=== PATIENT | female | born 1990 | race Caucasian/White ===

== ENCOUNTER 2020-02-06 14:33 | Emergency (ER) | payer MEDICARE, MEDICAID, SELFPAY ==
--- NOTE | 2020-02-06 | ECG_ITS ---
Test Reason : MEDICAL CLEARNACE Blood Pressure : / mmHG Vent. Rate : 046 BPM Atrial Rate : 046 BPM P-R Int : 132 ms QRS Dur : 086 ms QT Int : 478 ms P-R-T Axes : 034 086 049 degrees QTc Int : 418 ms Sinus bradycardia Otherwise normal ECG When compared with ECG of 06-NOV-2019 13:45, No significant change was found Referred By: Aixa Goodwin Electronically Signed By:ROSALIA GAONA
[2020-02-06 14:55] VITALS: BP 131/74; PULSE 59; RESP 17; TEMP 36.1; O2SAT 99; BMI 21.2
--- NOTE | 2020-02-06 15:14 | PC.NURSE ---
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 pt reports that she is on methadone, clinic is [facility] - methadone to be verified.
--- NOTE | 2020-02-06 15:35 | ED.PSYCH ---
HPI - Psych General Chief Complaint: Psychiatric Symptoms <CARLOS MANUEL Childs - Last Filed: 02/06/20 20:53> Stated Complaint: CRISIS <CARLOS MANUEL Childs - Last Filed: 02/06/20 20:53> Time Seen by Provider: 02/06/20 15:34 <CARLOS MANUEL Childs Last Filed: 02/06/20 20:53> Source: patient <CARLOS MANUEL Childs Last Filed: 02/06/20 20:53> Mode of arrival: ambulatory <CARLOS MANUEL Childs Last Filed: 02/06/20 20:53> Limitations: no limitations <CARLOS MANUEL Childs Last Filed: 02/06/20 20:53> History of Present Illness HPI Narrative: 29 y/o female presenting with opiate abuse, alcohol abuse, depression and feeling hopeless. Wants to get inpatient help per her report. She denies SI/HI/AH. She admits to using more heroin because her methadone dosing has been decreased significantly. She is depressed and anxious. She feels manic and reports racing thoughts. <CARLOS MANUEL Childs - Last Filed: 02/06/20 20:53> MD complaint: anxiety, substance abuse, alcohol abuse and other (earle) <CARLOS MANUEL Childs - Last Filed: 02/06/20 20:53> Onset (ago): day(s) <CARLOS MANUEL Childs - Last Filed: 02/06/20 20:53> Duration: constant <CARLOS MANUEL Childs Last Filed: 02/06/20 20:53> History of same: Yes <CARLOS MANUEL Childs - Last Filed: 02/06/20 20:53> Relieving factors: none <CARLOS MANUEL Childs Last Filed: 02/06/20 20:53> Exacerbating factors: alcohol and drug use <CARLOS MANUEL Childs Last Filed: 02/06/20 20:53> Context: recent alcohol abuse, recent drug abuse, not taking psychiatric medications and significant life stressor <CARLOS MANUEL Childs Last Filed: 02/06/20 20:53> Associated psychiatric symptoms: depression and racing thoughts <CARLOS MANUEL Childs Last Filed: 02/06/20 20:53> Associated symptoms: nausea and insomnia <CARLOS MANUEL Childs - Last Filed: 02/06/20 20:53> Treatments prior to arrival: none <CARLOS MANUEL Childs Last Filed: 02/06/20 20:53> Related Data Home Medications: Home Medications Medication Instructions Recorded Confirmed clonidine HCl 1 tab PO BID 02/06/20 02/06/20 fluoxetine 1 cap PO DAILY 02/06/20 02/06/20 gabapentin 1 cap PO TID 02/06/20 02/06/20 methadone 117 mg PO DAILY 02/06/20 02/06/20 <CARLOS MANUEL Childs - Last Filed: 02/06/20 20:53> Allergies/Adverse Reactions: Allergies Allergy/AdvReac Type Severity Reaction Status Date / Time buprenorphine [From SUBOXONE] Allergy Severe ANAPHAYLAXI Verified 02/06/20 19:45 S naloxone [From SUBOXONE] Allergy Severe ANAPHAYLAXI Verified 02/06/20 19:46 S sulfamethoxazole Allergy Intermediate RASH Verified 02/06/20 19:46 [From BACTRIM] trimethoprim [From BACTRIM] Allergy Intermediate RASH Verified 02/06/20 19:46 ibuprofen [From MOTRIN] Allergy Unknown ITCHINESS Verified 02/06/20 19:46 lamotrigine [From LAMICTAL] Allergy Unknown RASH Verified 02/06/20 19:46 prednisone [PREDNISONE] Allergy Unknown UNKNOWN Verified 02/06/20 19:46 quetiapine [From SEROQUEL] Allergy Unknown UNKNOWN Verified 02/06/20 19:46 trazodone [TRAZODONE] Allergy Unknown UNKNOWN Verified 02/06/20 19:46 <CARLOS MANUEL Childs - Last Filed: 02/06/20 20:53> Review of Systems Review of Systems: Constitutional: No Fever, No Chills ENT/Mouth: No sore throat, No Rhinorrhea, No Swallowing Difficulty Eyes: No Eye Pain, No Swelling, No Redness Cardiovascular: No Chest Pain, positive SOB, No Orthopnea, positive Edema Respiratory: No Cough, No Sputum, No Wheezing, positive dyspnea Gastrointestinal: No Nausea, No Vomiting, No Diarrhea, No abdominal Pain, No Hematochezia, No Melena Genitourinary: No Dysuria, No Urinary Frequency, No Hematuria Musculoskeletal: No joint pain, No Myalgias Skin: No Skin Lesions, No rash Neuro: No Weakness, No Numbness, No Dizziness, No Headache Psych: positive manic thoughts, positive depression, No SI/HI/AH, positive drug and alcohol use Heme/Lymph: No Bruising, No Lymphadenopathy Endocrine: No Polyuria, No Polydipsia All other 10 point ROS are negative. <CARLOS MANUEL Childs - Last Filed: 02/06/20 20:53> [facility] Past Medical History Medical History: Medical History (Updated 02/06/20 @ 20:33 by CARLOS MANUEL Childs) Alcohol abuse Cellulitis Heroin abuse No known health problems <CARLOS MANUEL Childs - Last Filed: 02/06/20 20:53> Social History Social History: Social History Alcohol intake: current Alcohol intake frequency: 3 or more drinks per day Alcohol type: other Smoking Status: Current every day smoker Smoked in Last 30 Days: Yes Use of substances other than those prescribed or required for medical reasons: Yes Substance Use Type: Crack/Cocaine and Opiates Substance Use Frequency: Daily Last Used Substance: Hours (ago) Any prior treatment program specific to substance use: Yes Advance Directives: No Advance Directives Information Provided: Yes <CARLOS MANUEL Childs - Last Filed: 02/06/20 20:53> Physical Exam Vital Signs and I&O and Narrative: Vital Signs and I&O: Vital Signs Temp 98.6 F 02/06/20 21:17 Pulse 60 02/06/20 21:25 Resp 20 02/06/20 21:17 BP 125/78 02/06/20 21:25 Pulse Ox 100 02/06/20 21:17 Intake & Output 02/06/20 02/06/20 02/07/20 06:59 18:59 06:59 Weight 54.431 kg Body Mass Index 21.2 Appearance: Alert. Oriented X3. No acute distress. Eyes: Pupils equal, round and reactive to light. ENT: Pharynx normal. Neck: Normal inspection. Neck supple. CVS: Normal heart rate and rhythm. Pulses normal. Respiratory: No respiratory distress. Breath sounds normal. Abdomen: Soft and nontender. +BS x4 Skin: Track ureña noted on bilateral upper extremities . Normal skin color. Normal skin turgor. Extremities: No lower extremity edema. Neuro: Oriented X 3. No motor deficit. No sensory deficit. <CARLOS MANUEL Childs - Last Filed: 02/06/20 20:53> Vital Signs and I&O: Vital Signs Temp 98.6 F 02/06/20 21:17 Pulse 60 02/06/20 21:25 Resp 20 02/06/20 21:17 BP 125/78 02/06/20 21:25 Pulse Ox 100 02/06/20 21:17 Intake & Output 02/06/20 02/06/20 02/07/20 06:59 18:59 06:59 Weight 54.431 kg Body Mass Index 21.2 <Jaleel May DO - Last Filed: 02/06/20 22:44> Course Course Hospital Course: excessive drug and alcohol use with manic thoughts, racing thoughts, wants to get help. admits to using more heroin after missing her methadone dosing and her clinic significantly decreased her dosing. she is homeless. she feels anxious and she may be starting to withdraw from ETOH. she was drinking a 5th a day. <CARLOS MANUEL Childs - Last Filed: 02/06/20 20:53> Reevaluation(s) Reevaluation #1: Pending [facility] evaluation. Labs show mild elevation in transaminases, likely due to ETOH abuse. <CARLOS MANUEL Childs - Last Filed: 02/06/20 20:53> Consultations Consultation #1: N <CARLOS MANUEL Childs - Last Filed: 02/06/20 20:53> MDM - Psych Differential Diagnosis Differential diagnosis: Likely acute psychosis, homicidal ideation, suicidal ideation, bipolar disorder, depression, drug-induced psychotic disorder, acute anxiety, post-traumatic stress disorder, attention deficit hyperactivity disorder, substance abuse, alcohol intoxication, mood disorder and schizoaffective disorder <CARLOS MANUEL Childs Last Filed: 02/06/20 20:53> Restraints Face to Face Assessment: Face to Face Assessment: Current Situation: After assessment of the patient, a review of the pertinent medical record and a discussion with nursing staff, I feel the patient requires a restrain intervention. Reaction To: [] Medical Condition: [] Behavioral State: [] Continued Need: [] <CARLOS MANUEL Childs - Last Filed: 02/06/20 20:53> Medical Records Attestation: I reviewed the patient's medical records. <CARLOS MANUEL Chilsd - Last Filed: 02/06/20 20:53> Lab Data Attestation: I reviewed the patient's lab results. <CARLOS MANUEL Childs - Last Filed: 02/06/20 20:53> Result diagrams: : 02/06/20 15:56 02/06/20 15:56 <CARLOS MANUEL Childs - Last Filed: 02/06/20 20:53> Labs: Lab Results 02/06/20 02/06/20 02/06/20 Range/Units 15:55 15:56 15:56 WBC 6.9 (4.8-10.8) X10*3/uL RBC 4.46 (4.20-5.50) X10*6/uL Hgb 11.4 L (12.0-16.0) g/dl Hct 37.2 (37-47) % MCV 83.4 (80-98) fL MCH 25.6 L (27.0-33.0) pg MCHC 30.6 L (31.0-35.0) g/dl RDW 16.0 (11.0-16.0) % Plt Count 201 (160-400) X10*3/uL MPV 11.6 (9.4-12.3) fL Immature Gran % (Auto) 0.3 (0.0-0.4) % Neut % (Auto) 63.4 (45-73) % Lymph % (Auto) 26.4 (20-40) % [place] % (Auto) 7.7 (2-11) % Eos % (Auto) 1.6 (0-4) % Baso % (Auto) 0.6 (0-2) % Neut # (Auto) 4.4 (2.0-8.3) X10*3/uL Lymph # (Auto) 1.8 (1.2-4.9) X10*3/uL [place] # (Auto) 0.5 (0.1-1.2) X10*3/uL Eos # (Auto) 0.1 (0.0-0.4) X10*3/uL Baso # (Auto) 0.0 (0.0-0.2) X10*3/uL Abs Immat Gran (auto) 0.02 (0.00-0.03) X10*3/uL Absolute Nucleated RBC 0.000 (0.0-0.012) X10*3/uL Nucleated RBC % (auto) 0.0 (0.0-0.2) /100WBC Sodium (135-145) mmol/L Potassium (3.3-5.1) mmol/l Chloride (96-108) mmol/L Carbon Dioxide (22-29) mmol/L Anion Gap (12-20) BUN (9-16) mg/dL Creatinine (0.5-1.4) mg/dL Estim Creat Clear Calc Estimated GFR Random Glucose (60-115) mg/dL Calcium (8.4-10.2) mg/dL Total Bilirubin (0.0-1.0) mg/dL AST (5-31) U/L ALT (0-31) U/L Alkaline Phosphatase (39-117) U/L Total Protein (6.5-8.0) g/dL Albumin (3.5-5.0) g/dL Urine Test NEGATIVE (NEGATIVE) Urine Opiates Screen (Not Detect) Ur Barbiturates Screen (Not Detect) Ur Phencyclidine Scrn (Not Detect) Ur Amphetamines Screen (Not Detect) U Benzodiazepines Scrn (Not Detect) Urine Cocaine Screen (Not Detect) U Marijuana (THC) Screen (Not Detect) Ethyl Alcohol < 10 mg/dL 02/06/20 02/06/20 Range/Units 15:56 15:56 WBC (4.8-10.8) X10*3/uL RBC (4.20-5.50) X10*6/uL Hgb (12.0-16.0) g/dl Hct (37-47) % MCV (80-98) fL MCH (27.0-33.0) pg MCHC (31.0-35.0) g/dl RDW (11.0-16.0) % Plt Count (160-400) X10*3/uL MPV (9.4-12.3) fL Immature Gran % (Auto) (0.0-0.4) % Neut % (Auto) (45-73) % Lymph % (Auto) (20-40) % [place] % (Auto) (2-11) % Eos % (Auto) (0-4) % Baso % (Auto) (0-2) % Neut # (Auto) (2.0-8.3) X10*3/uL Lymph # (Auto) (1.2-4.9) X10*3/uL [place] # (Auto) (0.1-1.2) X10*3/uL Eos # (Auto) (0.0-0.4) X10*3/uL Baso # (Auto) (0.0-0.2) X10*3/uL Abs Immat Gran (auto) (0.00-0.03) X10*3/uL Absolute Nucleated RBC (0.0-0.012) X10*3/uL Nucleated RBC % (auto) (0.0-0.2) /100WBC Sodium 141 (135-145) mmol/L Potassium 4.4 (3.3-5.1) mmol/l Chloride 104 (96-108) mmol/L Carbon Dioxide 28 (22-29) mmol/L Anion Gap 13 (12-20) BUN 8 L (9-16) mg/dL Creatinine 0.74 (0.5-1.4) mg/dL Estim Creat Clear Calc 93.6 Estimated GFR > 60 Random Glucose 89 (60-115) mg/dL Calcium 9.5 (8.4-10.2) mg/dL Total Bilirubin 0.4 (0.0-1.0) mg/dL AST 38 H (5-31) U/L ALT 44 H (0-31) U/L Alkaline Phosphatase 79 (39-117) U/L Total Protein 8.1 H (6.5-8.0) g/dL Albumin 4.6 (3.5-5.0) g/dL Urine Test (NEGATIVE) Urine Opiates Screen POSITIVE H (Not Detect) Ur Barbiturates Screen Not Detected (Not Detect) Ur Phencyclidine Scrn Not Detected (Not Detect) Ur Amphetamines Screen Not Detected (Not Detect) U Benzodiazepines Scrn Not Detected (Not Detect) Urine Cocaine Screen POSITIVE H (Not Detect) U Marijuana (THC) Screen POSITIVE H (Not Detect) Ethyl Alcohol mg/dL <CARLOS MANUEL Childs - Last Filed: 02/06/20 20:53> Lab Results 02/06/20 02/06/20 02/06/20 Range/Units 15:55 15:56 15:56 WBC 6.9 (4.8-10.8) X10*3/uL RBC 4.46 (4.20-5.50) X10*6/uL Hgb 11.4 L (12.0-16.0) g/dl Hct 37.2 (37-47) % MCV 83.4 (80-98) fL MCH 25.6 L (27.0-33.0) pg MCHC 30.6 L (31.0-35.0) g/dl RDW 16.0 (11.0-16.0) % Plt Count 201 (160-400) X10*3/uL MPV 11.6 (9.4-12.3) fL Immature Gran % (Auto) 0.3 (0.0-0.4) % Neut % (Auto) 63.4 (45-73) % Lymph % (Auto) 26.4 (20-40) % [place] % (Auto) 7.7 (2-11) % Eos % (Auto) 1.6 (0-4) % Baso % (Auto) 0.6 (0-2) % Neut # (Auto) 4.4 (2.0-8.3) X10*3/uL Lymph # (Auto) 1.8 (1.2-4.9) X10*3/uL [place] # (Auto) 0.5 (0.1-1.2) X10*3/uL Eos # (Auto) 0.1 (0.0-0.4) X10*3/uL Baso # (Auto) 0.0 (0.0-0.2) X10*3/uL Abs Immat Gran (auto) 0.02 (0.00-0.03) X10*3/uL Absolute Nucleated RBC 0.000 (0.0-0.012) X10*3/uL Nucleated RBC % (auto) 0.0 (0.0-0.2) /100WBC Sodium (135-145) mmol/L Potassium (3.3-5.1) mmol/l Chloride (96-108) mmol/L Carbon Dioxide (22-29) mmol/L Anion Gap (12-20) BUN (9-16) mg/dL Creatinine (0.5-1.4) mg/dL Estim Creat Clear Calc Estimated GFR Random Glucose (60-115) mg/dL Calcium (8.4-10.2) mg/dL Total Bilirubin (0.0-1.0) mg/dL AST (5-31) U/L ALT (0-31) U/L Alkaline Phosphatase (39-117) U/L Total Protein (6.5-8.0) g/dL Albumin (3.5-5.0) g/dL Urine Test NEGATIVE (NEGATIVE) Urine Opiates Screen (Not Detect) Ur Barbiturates Screen (Not Detect) Ur Phencyclidine Scrn (Not Detect) Ur Amphetamines Screen (Not Detect) U Benzodiazepines Scrn (Not Detect) Urine Cocaine Screen (Not Detect) U Marijuana (THC) Screen (Not Detect) Ethyl Alcohol < 10 mg/dL 02/06/20 02/06/20 Range/Units 15:56 15:56 WBC (4.8-10.8) X10*3/uL RBC (4.20-5.50) X10*6/uL Hgb (12.0-16.0) g/dl Hct (37-47) % MCV (80-98) fL MCH (27.0-33.0) pg MCHC (31.0-35.0) g/dl RDW (11.0-16.0) % Plt Count (160-400) X10*3/uL MPV (9.4-12.3) fL Immature Gran % (Auto) (0.0-0.4) % Neut % (Auto) (45-73) % Lymph % (Auto) (20-40) % [place] % (Auto) (2-11) % Eos % (Auto) (0-4) % Baso % (Auto) (0-2) % Neut # (Auto) (2.0-8.3) X10*3/uL Lymph # (Auto) (1.2-4.9) X10*3/uL [place] # (Auto) (0.1-1.2) X10*3/uL Eos # (Auto) (0.0-0.4) X10*3/uL Baso # (Auto) (0.0-0.2) X10*3/uL Abs Immat Gran (auto) (0.00-0.03) X10*3/uL Absolute Nucleated RBC (0.0-0.012) X10*3/uL Nucleated RBC % (auto) (0.0-0.2) /100WBC Sodium 141 (135-145) mmol/L Potassium 4.4 (3.3-5.1) mmol/l Chloride 104 (96-108) mmol/L Carbon Dioxide 28 (22-29) mmol/L Anion Gap 13 (12-20) BUN 8 L (9-16) mg/dL Creatinine 0.74 (0.5-1.4) mg/dL Estim Creat Clear Calc 93.6 Estimated GFR > 60 Random Glucose 89 (60-115) mg/dL Calcium 9.5 (8.4-10.2) mg/dL Total Bilirubin 0.4 (0.0-1.0) mg/dL AST 38 H (5-31) U/L ALT 44 H (0-31) U/L Alkaline Phosphatase 79 (39-117) U/L Total Protein 8.1 H (6.5-8.0) g/dL Albumin 4.6 (3.5-5.0) g/dL Urine Test (NEGATIVE) Urine Opiates Screen POSITIVE H (Not Detect) Ur Barbiturates Screen Not Detected (Not Detect) Ur Phencyclidine Scrn Not Detected (Not Detect) Ur Amphetamines Screen Not Detected (Not Detect) U Benzodiazepines Scrn Not Detected (Not Detect) Urine Cocaine Screen POSITIVE H (Not Detect) U Marijuana (THC) Screen POSITIVE H (Not Detect) Ethyl Alcohol mg/dL <Jaleel May DO - Last Filed: 02/06/20 22:44> ECG Data Attestation: I personally reviewed and interpreted this ECG as follows: <CARLOS MANUEL Childs - Last Filed: 02/06/20 20:53> Interpretation: normal sinus rhythm, HR 46, normal QTc <CARLOS MANUEL Childs - Last Filed: 02/06/20 20:53> Discharge Plan Discharge Clinical Impression: Heroin abuse, Alcohol abuse, Acute anxiety <CARLOS MANUEL Childs - Last Filed: 02/06/20 20:53> Prescriptions: No Action clonidine HCl 0.1 mg tablet 1 tab PO BID RF: 0 fluoxetine 10 mg capsule 1 cap PO DAILY RF: 0 gabapentin 300 mg capsule 1 cap PO TID RF: 0 methadone 117 mg PO DAILY RF: 0 <CARLOS MANUEL Childs - Last Filed: 02/06/20 20:53>
[2020-02-06] MEDS: Gabapentin 600 MG TABLET PO ×2 (16:03→21:25)
[2020-02-06] MEDS: LORazepam 1 MG TABLET PO ×2 (16:03→19:12)
[2020-02-06 16:06] LABS: MANUAL DIFF FLAG NO
[2020-02-06 16:07] LABS: Basophils Percent Auto 0.6 % (0-2); Eosinophils Absolute Auto 0.1 X10*3/uL (0.0-0.4); Eosinophils Percent Auto 1.6 % (0-4); Hematocrit 37.2 % (37-47); Hemoglobin 11.4 g/dl (12.0-16.0); Imm Gran Abs Auto 0.02 X10*3/uL (0.00-0.03); Imm Gran Pct Auto 0.3 % (0.0-0.4); Lymphocytes Absolute Auto 1.8 X10*3/uL (1.2-4.9); Lymphocytes Percent Auto 26.4 % (20-40); Mean Corpuscular HGB Conc 30.6 g/dl (31.0-35.0); Mean Corpuscular Hemoglobin 25.6 pg (27.0-33.0); Mean Corpuscular Volume 83.4 fL (80-98); Mean Platelet Volume 11.6 fL (9.4-12.3); Monocytes Absolute Auto 0.5 X10*3/uL (0.1-1.2); Monocytes Percent Auto 7.7 % (2-11); Neutrophils Absolute Auto 4.4 X10*3/uL (2.0-8.3); Neutrophils Percent Auto 63.4 % (45-73); Platelet Count 201 X10*3/uL (160-400); Red Blood Count 4.46 X10*6/uL (4.20-5.50); White Blood Count 6.9 X10*3/uL (4.8-10.8)
[2020-02-06 16:31] LABS: Ethanol < 10 mg/dL
[2020-02-06 16:34] LABS: UPreg QC Valid YES; Urine Pregnancy NEGATIVE (NEGATIVE)
[2020-02-06 16:35] LABS: Alanine Aminotransferase 44 U/L (0-31); Albumin Level 4.6 g/dL (3.5-5.0); Alkaline Phosphatase 79 U/L (39-117); Anion Gap 13 (12-20); Aspartate Amino Transferase 38 U/L (5-31); Bilirubin Total 0.4 mg/dL (0.0-1.0); Blood Urea Nitrogen 8 mg/dL (9-16); Calcium 9.5 mg/dL (8.4-10.2); Carbon Dioxide 28 mmol/L (22-29); Chloride 104 mmol/L (96-108); Creatinine Clr Calc Pharmacy 93.6; Estimated Glomerular Filt Rate > 60; Glucose Random 89 mg/dL (60-115); Potassium 4.4 mmol/l (3.3-5.1); Sodium 141 mmol/L (135-145); Total Protein 8.1 g/dL (6.5-8.0)
[2020-02-06 16:55] VITALS: BP 123/64; PULSE 54; RESP 20; TEMP 37; O2SAT 99
--- NOTE | 2020-02-06 17:31 | PC.NURSE ---
PT laying in bed watching TV. Calm and cooperative. Complaining of anxiety, provider made aware.
[2020-02-06 17:43] LABS: Amphetamine Screen Urine Not Detected (Not Detect); Barbiturates, Urine Not Detected (Not Detect); Benzodiazepines Screen Urine Not Detected (Not Detect); Cannabinoid Screen Urine POSITIVE (Not Detect); Cocaine Screen Urine POSITIVE (Not Detect); Opiate Screen Urine POSITIVE (Not Detect); Phencyclidine Screen Urine Not Detected (Not Detect)
[2020-02-06 19:30] VITALS: BP 116/59; PULSE 66; RESP 20; TEMP 37.2; O2SAT 99
--- NOTE | 2020-02-06 20:10 | ED.PSYCH ---
HPI - Psych General Chief Complaint: Psychiatric Symptoms <CARLOS MANUEL Childs - Last Filed: 02/06/20 20:33> Stated Complaint: CRISIS <CARLOS MANUEL Childs Last Filed: 02/06/20 20:33> Time Seen by Provider: 02/06/20 15:34 <CARLOS MANUEL Childs Last Filed: 02/06/20 20:33> Source: patient <CARLOS MANUEL Childs Last Filed: 02/06/20 20:33> Mode of arrival: ambulatory <CARLOS MANUEL Childs Last Filed: 02/06/20 20:33> Limitations: no limitations <CARLOS MANUEL Childs Last Filed: 02/06/20 20:33> History of Present Illness HPI Narrative: 29 y/o female with history of substance abuse and alcohol abuse presenting with hopes of detox and manic, disorganized thoughts. She has not been compliant with her psych meds or methadone. Her clinic has significantly decreased her dose due to missed appointment and she has been using more heroin. She also has been drinking a 5th of liquor daily for the last few months. She feels like she might be withdrawing. <CARLOS MANUEL Childs - Last Filed: 02/06/20 20:33> MD complaint: feels depressed, anxiety, substance abuse and alcohol abuse <CARLOS MANUEL Childs - Last Filed: 02/06/20 20:33> Onset (ago): week(s) (2) <CARLOS MANUEL Childs - Last Filed: 02/06/20 20:33> Duration: constant <CARLOS MANUEL Childs Last Filed: 02/06/20 20:33> History of same: Yes <CARLOS MANUEL Childs Last Filed: 02/06/20 20:33> Relieving factors: none <CARLOS MANUEL Childs Last Filed: 02/06/20 20:33> Exacerbating factors: alcohol and drug use <CARLOS MANUEL Childs Last Filed: 02/06/20 20:33> Context: recent alcohol abuse, recent drug abuse, not taking psychiatric medications and significant life stressor <CARLOS MANUEL Childs Last Filed: 02/06/20 20:33> Associated psychiatric symptoms: depression and racing thoughts <CARLOS MANUEL Childs Last Filed: 02/06/20 20:33> Associated symptoms: nausea and insomnia <CARLOS MANUEL Childs Last Filed: 02/06/20 20:33> Treatments prior to arrival: none <CARLOS MANUEL Childs Last Filed: 02/06/20 20:33> Related Data Home Medications: Home Medications Medication Instructions Recorded Confirmed clonidine HCl 1 tab PO BID 02/06/20 02/06/20 fluoxetine 1 cap PO DAILY 02/06/20 02/06/20 gabapentin 1 cap PO TID 02/06/20 02/06/20 <CARLOS MANUEL Childs Last Filed: 02/06/20 20:33> Allergies/Adverse Reactions: Allergies Allergy/AdvReac Type Severity Reaction Status Date / Time buprenorphine [From SUBOXONE] Allergy Severe ANAPHAYLAXI Verified 02/06/20 19:45 S naloxone [From SUBOXONE] Allergy Severe ANAPHAYLAXI Verified 02/06/20 19:46 S sulfamethoxazole Allergy Intermediate RASH Verified 02/06/20 19:46 [From BACTRIM] trimethoprim [From BACTRIM] Allergy Intermediate RASH Verified 02/06/20 19:46 ibuprofen [From MOTRIN] Allergy Unknown ITCHINESS Verified 02/06/20 19:46 lamotrigine [From LAMICTAL] Allergy Unknown RASH Verified 02/06/20 19:46 prednisone [PREDNISONE] Allergy Unknown UNKNOWN Verified 02/06/20 19:46 quetiapine [From SEROQUEL] Allergy Unknown UNKNOWN Verified 02/06/20 19:46 trazodone [TRAZODONE] Allergy Unknown UNKNOWN Verified 02/06/20 19:46 <CARLOS MANUEL Childs Last Filed: 02/06/20 20:33> Review of Systems Review of Systems: Constitutional: No Fever, No Chills ENT/Mouth: No sore throat, No Rhinorrhea, No Swallowing Difficulty Eyes: No Eye Pain, No Swelling, No Redness Cardiovascular: No Chest Pain, No SOB, No Orthopnea, No Edema Respiratory: No Cough, No Sputum, No Wheezing, No dyspnea Gastrointestinal: + Nausea, No Vomiting, No Diarrhea, No abdominal Pain, No Hematochezia, No Melena Genitourinary: No Dysuria, No Urinary Frequency, No Hematuria Musculoskeletal: No joint pain, No Myalgias Skin: + skin Lesions where she injects on UE, No rash Neuro: No Weakness, No Numbness, No Dizziness, No Headache Psych: + Anxiety/Panic, + Depression Heme/Lymph: No Bruising, No Lymphadenopathy Endocrine: No Polyuria, No Polydipsia <CARLOS MANUEL Childs - Last Filed: 02/06/20 20:33> [facility] Past Medical History Attestation statement: The following information was validated with the patient. <CARLOS MANUEL Childs - Last Filed: 02/06/20 20:33> Medical History: Medical History (Updated 02/06/20 @ 20:33 by CARLOS MANUEL Childs) Alcohol abuse Cellulitis Heroin abuse No known health problems <CARLOS MANUEL Childs - Last Filed: 02/06/20 20:33> Social History Social History: Social History Alcohol intake: current Alcohol intake frequency: 3 or more drinks per day Alcohol type: other Smoking Status: Current every day smoker Smoked in Last 30 Days: Yes Use of substances other than those prescribed or required for medical reasons: Yes Substance Use Type: Crack/Cocaine and Opiates Substance Use Frequency: Daily Last Used Substance: Hours (ago) Any prior treatment program specific to substance use: Yes Advance Directives: No Advance Directives Information Provided: Yes <CARLOS MANUEL Childs - Last Filed: 02/06/20 20:33> Physical Exam Vital Signs and I&O and Narrative: Vital Signs and I&O: Vital Signs Temp 98.9 F 02/06/20 19:30 Pulse 66 02/06/20 19:30 Resp 20 02/06/20 19:30 BP 116/59 L 02/06/20 19:30 Pulse Ox 99 02/06/20 19:30 Intake & Output 02/06/20 02/06/20 02/07/20 06:59 18:59 06:59 Weight 54.431 kg Body Mass Index 21.2 Appearance: Alert. Oriented X3. No acute distress. Eyes: Pupils equal, round and reactive to light. ENT: Pharynx normal. Neck: Normal inspection. Neck supple. CVS: bradycardia, Pulses normal. Respiratory: No respiratory distress. Breath sounds normal. Abdomen: Soft and nontender. +BS x4 Skin: Skin warm and dry. Normal skin color. Normal skin turgor. No rashes. Extremities: No lower extremity edema. upper extrmity track ureña in bilateral forearms, no cellulitis or abscess Neuro: Oriented X 3. No motor deficit. No sensory deficit. <CARLOS MANUEL Childs Last Filed: 02/06/20 20:33> Vital Signs and I&O: Vital Signs Temp 98.9 F 02/06/20 19:30 Pulse 66 02/06/20 19:30 Resp 20 02/06/20 19:30 BP 116/59 L 02/06/20 19:30 Pulse Ox 99 02/06/20 19:30 Intake & Output 02/06/20 02/06/20 02/07/20 06:59 18:59 06:59 Weight 54.431 kg Body Mass Index 21.2 <Jaleel May DO - Last Filed: 02/06/20 20:50> Course Course Hospital Course: excessive drug and alcohol use with manic thoughts, racing thoughts, wants to get help. admits to using more heroin after missing her methadone dosing and her clinic significantly decreased her dosing. she is homeless. she feels anxious and she may be starting to withdraw from ETOH. she was drinking a 5th a day. <CARLOS MANUEL Childs - Last Filed: 02/06/20 20:33> Reevaluation(s) Reevaluation #1: reports increased anxiety and ?of alcohol withdrawl with positive tremor but no other objective signs of withdrawal. pending [facility] evaluation. <CARLOS MANUEL Childs Last Filed: 02/06/20 20:33> Time: 20:16 <CARLOS MANUEL Childs Last Filed: 02/06/20 20:33> MDM - Psych Restraints Face to Face Assessment: Face to Face Assessment: Current Situation: After assessment of the patient, a review of the pertinent medical record and a discussion with nursing staff, I feel the patient requires a restrain intervention. Reaction To: [] Medical Condition: [] Behavioral State: [] Continued Need: [] <CARLOS MANUEL Childs Last Filed: 02/06/20 20:33> Lab Data Result diagrams: : 02/06/20 15:56 02/06/20 15:56 <CARLOS MANUEL Childs - Last Filed: 02/06/20 20:33> Labs: Lab Results 02/06/20 02/06/20 02/06/20 Range/Units 15:55 15:56 15:56 WBC 6.9 (4.8-10.8) X10*3/uL RBC 4.46 (4.20-5.50) X10*6/uL Hgb 11.4 L (12.0-16.0) g/dl Hct 37.2 (37-47) % MCV 83.4 (80-98) fL MCH 25.6 L (27.0-33.0) pg MCHC 30.6 L (31.0-35.0) g/dl RDW 16.0 (11.0-16.0) % Plt Count 201 (160-400) X10*3/uL MPV 11.6 (9.4-12.3) fL Immature Gran % (Auto) 0.3 (0.0-0.4) % Neut % (Auto) 63.4 (45-73) % Lymph % (Auto) 26.4 (20-40) % Callaway % (Auto) 7.7 (2-11) % Eos % (Auto) 1.6 (0-4) % Baso % (Auto) 0.6 (0-2) % Neut # (Auto) 4.4 (2.0-8.3) X10*3/uL Lymph # (Auto) 1.8 (1.2-4.9) X10*3/uL Callaway # (Auto) 0.5 (0.1-1.2) X10*3/uL Eos # (Auto) 0.1 (0.0-0.4) X10*3/uL Baso # (Auto) 0.0 (0.0-0.2) X10*3/uL Abs Immat Gran (auto) 0.02 (0.00-0.03) X10*3/uL Absolute Nucleated RBC 0.000 (0.0-0.012) X10*3/uL Nucleated RBC % (auto) 0.0 (0.0-0.2) /100WBC Sodium (135-145) mmol/L Potassium (3.3-5.1) mmol/l Chloride (96-108) mmol/L Carbon Dioxide (22-29) mmol/L Anion Gap (12-20) BUN (9-16) mg/dL Creatinine (0.5-1.4) mg/dL Estim Creat Clear Calc Estimated GFR Random Glucose (60-115) mg/dL Calcium (8.4-10.2) mg/dL Total Bilirubin (0.0-1.0) mg/dL AST (5-31) U/L ALT (0-31) U/L Alkaline Phosphatase (39-117) U/L Total Protein (6.5-8.0) g/dL Albumin (3.5-5.0) g/dL Urine Test NEGATIVE (NEGATIVE) Urine Opiates Screen (Not Detect) Ur Barbiturates Screen (Not Detect) Ur Phencyclidine Scrn (Not Detect) Ur Amphetamines Screen (Not Detect) U Benzodiazepines Scrn (Not Detect) Urine Cocaine Screen (Not Detect) U Marijuana (THC) Screen (Not Detect) Ethyl Alcohol < 10 mg/dL 02/06/20 02/06/20 Range/Units 15:56 15:56 WBC (4.8-10.8) X10*3/uL RBC (4.20-5.50) X10*6/uL Hgb (12.0-16.0) g/dl Hct (37-47) % MCV (80-98) fL MCH (27.0-33.0) pg MCHC (31.0-35.0) g/dl RDW (11.0-16.0) % Plt Count (160-400) X10*3/uL MPV (9.4-12.3) fL Immature Gran % (Auto) (0.0-0.4) % Neut % (Auto) (45-73) % Lymph % (Auto) (20-40) % Callaway % (Auto) (2-11) % Eos % (Auto) (0-4) % Baso % (Auto) (0-2) % Neut # (Auto) (2.0-8.3) X10*3/uL Lymph # (Auto) (1.2-4.9) X10*3/uL Callaway # (Auto) (0.1-1.2) X10*3/uL Eos # (Auto) (0.0-0.4) X10*3/uL Baso # (Auto) (0.0-0.2) X10*3/uL Abs Immat Gran (auto) (0.00-0.03) X10*3/uL Absolute Nucleated RBC (0.0-0.012) X10*3/uL Nucleated RBC % (auto) (0.0-0.2) /100WBC Sodium 141 (135-145) mmol/L Potassium 4.4 (3.3-5.1) mmol/l Chloride 104 (96-108) mmol/L Carbon Dioxide 28 (22-29) mmol/L Anion Gap 13 (12-20) BUN 8 L (9-16) mg/dL Creatinine 0.74 (0.5-1.4) mg/dL Estim Creat Clear Calc 93.6 Estimated GFR > 60 Random Glucose 89 (60-115) mg/dL Calcium 9.5 (8.4-10.2) mg/dL Total Bilirubin 0.4 (0.0-1.0) mg/dL AST 38 H (5-31) U/L ALT 44 H (0-31) U/L Alkaline Phosphatase 79 (39-117) U/L Total Protein 8.1 H (6.5-8.0) g/dL Albumin 4.6 (3.5-5.0) g/dL Urine Test (NEGATIVE) Urine Opiates Screen POSITIVE H (Not Detect) Ur Barbiturates Screen Not Detected (Not Detect) Ur Phencyclidine Scrn Not Detected (Not Detect) Ur Amphetamines Screen Not Detected (Not Detect) U Benzodiazepines Scrn Not Detected (Not Detect) Urine Cocaine Screen POSITIVE H (Not Detect) U Marijuana (THC) Screen POSITIVE H (Not Detect) Ethyl Alcohol mg/dL <CARLOS MANUEL Childs - Last Filed: 02/06/20 20:33> Lab Results 02/06/20 02/06/20 02/06/20 Range/Units 15:55 15:56 15:56 WBC 6.9 (4.8-10.8) X10*3/uL RBC 4.46 (4.20-5.50) X10*6/uL Hgb 11.4 L (12.0-16.0) g/dl Hct 37.2 (37-47) % MCV 83.4 (80-98) fL MCH 25.6 L (27.0-33.0) pg MCHC 30.6 L (31.0-35.0) g/dl RDW 16.0 (11.0-16.0) % Plt Count 201 (160-400) X10*3/uL MPV 11.6 (9.4-12.3) fL Immature Gran % (Auto) 0.3 (0.0-0.4) % Neut % (Auto) 63.4 (45-73) % Lymph % (Auto) 26.4 (20-40) % Callaway % (Auto) 7.7 (2-11) % Eos % (Auto) 1.6 (0-4) % Baso % (Auto) 0.6 (0-2) % Neut # (Auto) 4.4 (2.0-8.3) X10*3/uL Lymph # (Auto) 1.8 (1.2-4.9) X10*3/uL Callaway # (Auto) 0.5 (0.1-1.2) X10*3/uL Eos # (Auto) 0.1 (0.0-0.4) X10*3/uL Baso # (Auto) 0.0 (0.0-0.2) X10*3/uL Abs Immat Gran (auto) 0.02 (0.00-0.03) X10*3/uL Absolute Nucleated RBC 0.000 (0.0-0.012) X10*3/uL Nucleated RBC % (auto) 0.0 (0.0-0.2) /100WBC Sodium (135-145) mmol/L Potassium (3.3-5.1) mmol/l Chloride (96-108) mmol/L Carbon Dioxide (22-29) mmol/L Anion Gap (12-20) BUN (9-16) mg/dL Creatinine (0.5-1.4) mg/dL Estim Creat Clear Calc Estimated GFR Random Glucose (60-115) mg/dL Calcium (8.4-10.2) mg/dL Total Bilirubin (0.0-1.0) mg/dL AST (5-31) U/L ALT (0-31) U/L Alkaline Phosphatase (39-117) U/L Total Protein (6.5-8.0) g/dL Albumin (3.5-5.0) g/dL Urine Test NEGATIVE (NEGATIVE) Urine Opiates Screen (Not Detect) Ur Barbiturates Screen (Not Detect) Ur Phencyclidine Scrn (Not Detect) Ur Amphetamines Screen (Not Detect) U Benzodiazepines Scrn (Not Detect) Urine Cocaine Screen (Not Detect) U Marijuana (THC) Screen (Not Detect) Ethyl Alcohol < 10 mg/dL 02/06/20 02/06/20 Range/Units 15:56 15:56 WBC (4.8-10.8) X10*3/uL RBC (4.20-5.50) X10*6/uL Hgb (12.0-16.0) g/dl Hct (37-47) % MCV (80-98) fL MCH (27.0-33.0) pg MCHC (31.0-35.0) g/dl RDW (11.0-16.0) % Plt Count (160-400) X10*3/uL MPV (9.4-12.3) fL Immature Gran % (Auto) (0.0-0.4) % Neut % (Auto) (45-73) % Lymph % (Auto) (20-40) % Callaway % (Auto) (2-11) % Eos % (Auto) (0-4) % Baso % (Auto) (0-2) % Neut # (Auto) (2.0-8.3) X10*3/uL Lymph # (Auto) (1.2-4.9) X10*3/uL [place]away # (Auto) (0.1-1.2) X10*3/uL Eos # (Auto) (0.0-0.4) X10*3/uL Baso # (Auto) (0.0-0.2) X10*3/uL Abs Immat Gran (auto) (0.00-0.03) X10*3/uL Absolute Nucleated RBC (0.0-0.012) X10*3/uL Nucleated RBC % (auto) (0.0-0.2) /100WBC Sodium 141 (135-145) mmol/L Potassium 4.4 (3.3-5.1) mmol/l Chloride 104 (96-108) mmol/L Carbon Dioxide 28 (22-29) mmol/L Anion Gap 13 (12-20) BUN 8 L (9-16) mg/dL Creatinine 0.74 (0.5-1.4) mg/dL Estim Creat Clear Calc 93.6 Estimated GFR > 60 Random Glucose 89 (60-115) mg/dL Calcium 9.5 (8.4-10.2) mg/dL Total Bilirubin 0.4 (0.0-1.0) mg/dL AST 38 H (5-31) U/L ALT 44 H (0-31) U/L Alkaline Phosphatase 79 (39-117) U/L Total Protein 8.1 H (6.5-8.0) g/dL Albumin 4.6 (3.5-5.0) g/dL Urine Test (NEGATIVE) Urine Opiates Screen POSITIVE H (Not Detect) Ur Barbiturates Screen Not Detected (Not Detect) Ur Phencyclidine Scrn Not Detected (Not Detect) Ur Amphetamines Screen Not Detected (Not Detect) U Benzodiazepines Scrn Not Detected (Not Detect) Urine Cocaine Screen POSITIVE H (Not Detect) U Marijuana (THC) Screen POSITIVE H (Not Detect) Ethyl Alcohol mg/dL <Jaleel May DO - Last Filed: 02/06/20 20:50> Discharge Plan Discharge Clinical Impression: Heroin abuse, Alcohol abuse, Acute anxiety <CARLOS MANUEL Childs - Last Filed: 02/06/20 20:33> Prescriptions: No Action clonidine HCl 0.1 mg tablet 1 tab PO BID RF: 0 fluoxetine 10 mg capsule 1 cap PO DAILY RF: 0 gabapentin 300 mg capsule 1 cap PO TID RF: 0 <CARLOS MANUEL Childs - Last Filed: 02/06/20 20:33>
--- NOTE | 2020-02-06 20:44 | PC.NURSE ---
PATIENT KEEPS COMING TO DESK ASKING FOR MEDICATION BECAUSE SHE STATES SHE IS WITHDRAWING FROM ALCOHOL. PA AWARE AND PRESCRIBED ATARAX WELL CLONIDINE. PATIENT CONTINUED TO ARGUE WITH THIS STAFF. CARLOS MANUEL DELANEY IS CURRENTLY DISCUSSING MEDICATION OPTION WITH PATIENT.
[2020-02-06 21:17] VITALS: BP 125/78; PULSE 58; RESP 20; TEMP 37; O2SAT 100
[2020-02-06 21:25] VITALS: BP 125/78; PULSE 60
[2020-02-06] MEDS: cloNIDine HCL 0.1 MG TABLET PO (21:25)
[2020-02-06] MEDS: chlordiazePOXIDE HCl 25 MG CAPSULE PO (21:25)
--- NOTE | 2020-02-06 22:58 | PC.NURSE ---
PATIENT WAS SCHEDULED FOR ATARAX AND CARLOS MANUEL DELANEY SPOKE WITH PATIENT AND DISCONTINUED THE ATARAX AND PRESCRIBED DIFFERENT MEDICATIONS WHICH WERE GIVEN. PATIENT HAS BEEN FIXATED ON MEDICATIONS ALL EVENING AND HAS APPROACHED THIS STAFF MEMBER ABOUT GETTING MEDICATIONS AND WHICH MEDICATIONS SHE NEEDS. MD DUGAN
[2020-02-07] VITALS (9 sets, daily range): BP systolic 111–135; BP diastolic 40–83; PULSE 51–88; RESP 14–20; TEMP 36.1–36.8; O2SAT 97–100
--- NOTE | 2020-02-07 00:24 | PC.NURSE ---
PATIENT CAME TO DESK AND STATED THAT SHE WAS DETOXING AND NEEDED MORE MEDICATION. PATIENT NOT DIAPHORETIC. VITAL SIGNS WERE TEMP 97.4, PULSE 77, BP 133/69, AND 100 PERCENT ON ROOM AIR. MD AWARE AND PATIENT CONTINUES TO PERSEVERATE ON MEDICATIONS.
[2020-02-07] MEDS: chlordiazePOXIDE HCl 25 MG CAPSULE PO ×2 (00:34→10:50)
--- NOTE | 2020-02-07 00:34 | PC.NURSE ---
PATIENT MEDICATED PER EMAR NOTED.
--- NOTE | 2020-02-07 00:40 | PC.NURSE ---
HEIDIN EVALUATED THE PATIENT AND THE CURRENT PLAN IS TO HAVE THE PATIENT GO INPATIENT TO [facility]. PER [facility] PATIENT STATES THAT IF SHE DOESN'T GO IN PATIENT SOMETHING BAD WILL HAPPEN. PATIENT HISTORICALLY DOES NOT DO WELL AT DETOX.
--- NOTE | 2020-02-07 05:13 | PC.NURSE ---
PATIENT CAME OUT OF HER ROOM AND IS COMPLAINING OF WITHDRAWEL SYMPTOMS. PATIENT ASKING FOR LIBRIUM, TYLENOL AND ZOFRAN. PATIENT STATES SHE DOES NOT FEEL WELL. MD NOTIFIED. PATIENT VSS TAKEN
--- NOTE | 2020-02-07 05:58 | PC.NURSE ---
O[place] SCORE COMPLETED AND MD NOTIFIED OF RESULTS.
--- NOTE | 2020-02-07 06:04 | PC.NURSE ---
PATIENT HOLDING HER HANDS AGAINST HER CHEST AND HAND NOT TREMORING. NO DIAPHORESIS. PATIENT UPSET AND TELLING THIS POLICE LIEUTENANT PRECINCT THAT SHE IS A HIGHER CIWA SCORE THAN WHERE I PUT HERE.
[2020-02-07] MEDS: LORazepam 0.5 MG TABLET PO (06:32)
--- NOTE | 2020-02-07 06:33 | PC.NURSE ---
PATIENT MEDICATED PER EMAR NOTED.
--- NOTE | 2020-02-07 07:18 | PC.NURSE ---
REPORT RECIEVED. PT COMPLAINING OF A HEADACHE AND STATES THAT SHE IS DETOXING, PT LISTING CIWA SYMTPOMS. SUPPORT GIVEN. PT IRRITABLE, AND DEMANDING.
--- NOTE | 2020-02-07 09:31 | PC.NURSE ---
Pt watching tv, calm and cooperative, pt pleasant in conversation, less irritable at this time.
[2020-02-07] MEDS: cloNIDine HCL 0.1 MG TABLET PO (10:50)
[2020-02-07] MEDS: Gabapentin 300 MG CAPSULE PO ×2 (10:50→15:03)
--- NOTE | 2020-02-07 13:24 | PC.NURSE ---
pt has spoken with megha again. now stating that she shouldn't have come. her friend is also present in the pod. Pt denies SI.
== END 2020-02-07 16:06 | disposition home or self-care (01) ==
PROVIDERS: Physician Assistant; Emergency Provider Emergency Medicine; PCP Internal Medicine
DX: F11.10 Opioid abuse, uncomplicated (principal); F10.10 Alcohol abuse, uncomplicated; Y90.9 Presence of alcohol in blood, level not specified; F41.9 Anxiety disorder, unspecified; F17.200 Nicotine dependence, unspecified, uncomplicated
CPT/HCPCS: 36415; 80053; 80307; 80320; 81025; 85025; 93005; 93010; 99285

== ENCOUNTER 2020-02-12 22:16 | Emergency (ER) | payer MEDICARE, MEDICAID, SELFPAY ==
[2020-02-12 22:21] VITALS: BP 117/65; PULSE 91; RESP 20; TEMP 36.4; O2SAT 99; BMI 20.1
--- NOTE | 2020-02-12 22:51 | ED.PSYCH ---
HPI - Psych General Chief Complaint: Psychiatric Symptoms Stated Complaint: Crisis Time Seen by Provider: 02/12/20 22:47 Source: patient Mode of arrival: ambulatory History of Present Illness HPI Narrative: patient states has not been taking her medications as well as has been thinking about caught herself and came in for evaluation for crisis. Patient denies recent illness or fevers or chills. Denies chest pain or shortness of MD complaint: suicidal ideation Onset (ago): day(s) (3) History of same: Yes Relieving factors: none Treatments prior to arrival: none If self harm: admits thoughts of self harm Related Data Home Medications Medication Instructions Recorded Confirmed clonidine HCl 0.1 mg PO BID 02/06/20 02/07/20 fluoxetine 10 mg PO DAILY 02/06/20 02/07/20 gabapentin 300 mg PO TID 02/06/20 02/07/20 methadone 117 mg PO DAILY 02/06/20 02/06/20 pregabalin 1 cap PO BID 02/07/20 02/07/20 Allergies Allergy/AdvReac Type Severity Reaction Status Date / Time buprenorphine [From SUBOXONE] Allergy Severe ANAPHAYLAXI Verified 02/06/20 19:45 S naloxone [From SUBOXONE] Allergy Severe ANAPHAYLAXI Verified 02/06/20 19:46 S sulfamethoxazole Allergy Intermediate RASH Verified 02/06/20 19:46 [From BACTRIM] trimethoprim [From BACTRIM] Allergy Intermediate RASH Verified 02/06/20 19:46 ibuprofen [From MOTRIN] Allergy Unknown ITCHINESS Verified 02/06/20 19:46 lamotrigine [From LAMICTAL] Allergy Unknown RASH Verified 02/06/20 19:46 prednisone [PREDNISONE] Allergy Unknown UNKNOWN Verified 02/06/20 19:46 quetiapine [From SEROQUEL] Allergy Unknown UNKNOWN Verified 02/06/20 19:46 trazodone [TRAZODONE] Allergy Unknown UNKNOWN Verified 02/06/20 19:46 Review of Systems Review of Systems: Constitutional : No Weight loss, No Fever, No Chills, No Night Sweats, No Fatigue, No Malaise ENT/Mouth : No Hearing loss, No Ear Pain, No Nasal Congestion, No Sinus Pain, No Hoarseness, No sore throat, No Rhinorrhea, No Swallowing Difficulty Eyes: No Eye Pain, No Swelling, No Redness, No Foreign Body, No Discharge, No Vision Changes Cardiovascular : No Chest Pain, No SOB, No Dyspnea on Exertion, No Orthopnea, No Edema, No Palpitations Respiratory : No Cough, No Sputum, No Wheezing, No Smoke Exposure, No Dyspnea Gastrointestinal : No Nausea, No Vomiting, No Diarrhea, No Constipation, No abdominal Pain, No Hematochezia, No Melena Genitourinary : no irregular bleeding, No Dysuria, No Urinary Frequency, No Hematuria, No Urinary Incontinence, No Urgency, No Flank Pain, No Urinary Flow Changes, No Hesitancy Musculoskeletal : No joint pain, No Myalgias, No Joint Swelling Skin : No Skin Lesions, No rash Neuro : No Weakness, No Numbness, No Paresthesias, No Loss of Consciousness, No Dizziness, No Headache Psych : No Anxiety/Panic, positiveDepression, positive SI, No Social Issues, Heme/Lymph: No Bruising, No Bleeding,No Lymphadenopathy Endocrine : No Polyuria, No Polydipsia, No Temperature Intolerance PMFSH Past Medical History Attestation statement: The following information was validated with the patient. Medical History Alcohol abuse Cellulitis Heroin abuse No known health problems Family History Family History (Updated 02/12/20 @ 22:52 by Jaleel May DO) Other Family history non-contributory Social History Social History Alcohol intake: current Alcohol intake frequency: 3 or more drinks per day Alcohol type: other Smoking Status: Current every day smoker Substance Use Type: Crack/Cocaine and Opiates Advance Directives: No Advance Directives Information Provided: Yes Physical Exam Vital Signs: Vital Signs: Vital Signs Temp Pulse Resp BP Pulse Ox 02/12/20 22:21 97.6 F 91 20 117/65 99 Body Mass Index 20.1 vital signs reviewed Appearance: Alert. Oriented X3. No acute distress. Eyes: Pupils equal, round and reactive to light. ENT: Pharynx normal. Neck: Normal inspection. Neck supple. No lymph nodes noted. No crepitus CVS: Normal heart rate and rhythm. Pulses normal. Normal S1 and S2 Respiratory: No respiratory distress. Breath sounds normal. No Wheezing. No rales Abdomen: Soft and nontender. No rigidity. No distention. good BS x4 Skin: Skin warm and dry. Normal skin color. Normal skin turgor. Extremities: No lower extremity edema. Neurovascular intact to all extremities. No Lacerations. No Rash Neuro: Oriented X 3. No motor deficit. No sensory deficit. Moving all extermities. No slurred speech. MDM - Psych Restraints Face to Face Assessment: Face to Face Assessment: Current Situation: After assessment of the patient, a review of the pertinent medical record and a discussion with nursing staff, I feel the patient requires a restrain intervention. Reaction To: [] Medical Condition: [] Behavioral State: [] Continued Need: [] Discharge Plan Discharge Prescriptions: No Action clonidine HCl 0.1 mg tablet 0.1 mg PO BID RF: 0 fluoxetine 10 mg capsule 10 mg PO DAILY RF: 0 gabapentin 300 mg capsule 300 mg PO TID RF: 0 methadone 117 mg PO DAILY RF: 0 pregabalin 50 mg capsule 1 cap PO BID RF: 0
[2020-02-12] MEDS: Gabapentin 300 MG CAPSULE PO (23:21)
--- NOTE | 2020-02-12 23:24 | PC.NURSE ---
Pt medicated per EMAR. Provided with urine cup to obtain UA.
[2020-02-12 23:47] VITALS: BP 110/64; PULSE 64; RESP 16; TEMP 36.4; O2SAT 97
[2020-02-13] VITALS: BP 104/62; PULSE 64; RESP 16; TEMP 36.9; O2SAT 99
[2020-02-13 00:24] LABS: UPreg QC Valid YES; Urine Pregnancy NEGATIVE (NEGATIVE)
[2020-02-13 00:50] LABS: Amphetamine Screen Urine Not Detected (Not Detect); Barbiturates, Urine Not Detected (Not Detect); Benzodiazepines Screen Urine POSITIVE (Not Detect); Cannabinoid Screen Urine POSITIVE (Not Detect); Cocaine Screen Urine POSITIVE (Not Detect); Opiate Screen Urine POSITIVE (Not Detect); Phencyclidine Screen Urine Not Detected (Not Detect)
--- NOTE | 2020-02-13 01:32 | PC.NURSE ---
Pt sleeping in bed in NAD, visible chest rise noted, sitter at bedside. Continue to monitor.
[2020-02-13 02:00] VITALS: BP 109/56; PULSE 64; RESP 16; TEMP 36.6
--- NOTE | 2020-02-13 03:33 | PC.NURSE ---
Pt sleeping in bed at this time in NAD, visible chest rise noted. VSS. Continue to monitor.
[2020-02-13 04:00] VITALS: BP 106/54; PULSE 64; RESP 16; TEMP 36.4
--- NOTE | 2020-02-13 04:08 | PC.NURSE ---
Faxed to [facility].
--- NOTE | 2020-02-13 04:22 | PC.NURSE ---
Pt wakes suddenly, requesting to use the bathroom. Pt extremely angry to find a sitter at her bedside. Pt requesting to speak with a nurse, this RN at bedside discussing pts concerns. Pt states WHY THE FUCK AM I STILL IN THE HALLWAY? WHY HAVEN'T I SEEN CRISIS YET? I'M IN WITHDRAWALS, I'M SHAKING AND SWEATING, NOONE HAS CHECKED ON ME. Pt advised that multiple people have checked on her repeatedly, her vitals remain WNL and that she has a crisis eval pending for morning. Pt continued yelling at this RN. This RN explained to pt that when she was able to calm down, this RN would return.
--- NOTE | 2020-02-13 05:01 | PC.NURSE ---
Pt awake and alert, calm and cooperative at this time, requesting a nicotine patch, Colace, Zofran and gingerale. MD aware.
[2020-02-13] MEDS: Docusate Sodium 100 MG/10 ML LIQUID PO (05:08)
--- NOTE | 2020-02-13 05:25 | PC.NURSE ---
Pt medicated per EMAR, refusing nicotine patch, states it irriates my skin.
--- NOTE | 2020-02-13 05:37 | PC.NURSE ---
Med Rec completed with pt. Aleks RN calling [facility] in [place] to verify Methadone dose of 117 mg/daily once they open at 0600, .
--- NOTE | 2020-02-13 05:46 | PC.NURSE ---
Addendum entered by Sarah Coleman 02/13/20 06:20: Unable to locate fax number, unable to fax document. Clinic to open @ 0700. Original Note: Methadone verification form faxed to [facility].
[2020-02-13 06:00] VITALS: RESP 16
[2020-02-13] MEDS: LORazepam 1 MG TABLET PO (06:16)
--- NOTE | 2020-02-13 06:17 | PC.NURSE ---
PATIENT REFUSED VITALS ,NURSE AWARE
--- NOTE | 2020-02-13 06:21 | PC.NURSE ---
Pt medicated per request with Ativan and a Nicotine Lozenge. Awaiting crisis eval.
--- NOTE | 2020-02-13 07:12 | PC.NURSE ---
PT IS CURRENTLY AWAKE SITTING ON THE EDGE OF HER BED SITTER IN PLACE.
[2020-02-13 07:49] VITALS: BP 123/56; PULSE 79; RESP 20; O2SAT 100
--- NOTE | 2020-02-13 07:53 | PC.NURSE ---
PT RESTING IN THE STRETCHER, RESPIRATIONS EVEN AND UNLABORED. PT REPORTS HAVING WITHDRAWALS FROM ALCOHOL, VS STABLE, NO VISIBLE TREMORS AT THIS TIME. PT IS REQUESTING LIBRIUM. PT REPORTS SI, STATES SHE THINKS ABOUT DYING EVERY DAY, WOULD LIKE HELP WITH GETTING OFF THE DRUGS, LAST USED LAST NIGHT AT 1600. PT ALSO STATES THAT SHE IS ON METHADONE AT [facility] IN [place] AND HER DOSE IS 117. PT AWARE OF PLAN TO SPEAK TO N. SITTER IN PLACE
--- NOTE | 2020-02-13 08:01 | PC.NURSE ---
SPOKE TO ANGELA STEEL AT [facility], PT WAS DOSED 02/12/2020 AT 117MG
--- NOTE | 2020-02-13 08:08 | PC.NURSE ---
BHN EVALUATING THE PT AT THIS TIME
--- NOTE | 2020-02-13 08:54 | PC.NURSE ---
pt moved to the pod, report given to jeannie briceño
[2020-02-13] MEDS: chlordiazePOXIDE HCl 25 MG CAPSULE 50 MG PO (09:00)
--- NOTE | 2020-02-13 09:25 | PC.NURSE ---
Pt cooperative with transfer to pod. Seen by HEIDIN. Pt has a detox bed at [facility]. Pending d/c time at 1400.
[2020-02-13] MEDS: Pregabalin 50 MG CAPSULE PO (10:03)
[2020-02-13] MEDS: Gabapentin 300 MG CAPSULE PO (10:03)
--- NOTE | 2020-02-13 11:07 | PC.NURSE ---
Pt requesting d/c from ED prior to admission at [facility] today at 1500. Provider and BHN aware. Pt denying SI at this time.
--- NOTE | 2020-02-13 11:53 | MHC.CARE ---
Patient assessed by KIM in the ED and was awaiting detox, has an intake at [facility] at 2:00pm. She changed the intake time to 3:00pm she decided to discharge, take care of some things and then go to [facility]. Currently on Methadone, not connected with mental health providers, said she plans to reach out to previous therapist, Ramesh at [facility].
== END 2020-02-13 11:16 | disposition home or self-care (01) ==
PROVIDERS: Emergency Provider Emergency Medicine; PCP Internal Medicine
DX: F43.29 Adjustment disorder with other symptoms (principal); R45.851 Suicidal ideations; F11.10 Opioid abuse, uncomplicated; F14.10 Cocaine abuse, uncomplicated; F10.10 Alcohol abuse, uncomplicated; Z91.14 Patient's other noncompliance with medication regimen; Y90.9 Presence of alcohol in blood, level not specified
CPT/HCPCS: 80307; 81025; 99285

== ENCOUNTER 2020-02-13 17:59 | Emergency (ER) | payer MEDICARE, MEDICAID, SELFPAY ==
[2020-02-13 18:05] VITALS: BP 128/77; PULSE 84; RESP 20; TEMP 36.7; O2SAT 96
[2020-02-13 18:30] VITALS: BMI 45.6
--- NOTE | 2020-02-13 18:36 | PC.NURSE ---
Pt arriuved to unit via EMS. Per pt and EMS, pt was sent here from [place] after hearing that pt had endorsed SI in the past. Pt arrived on Section 12, denies SI at this time, pt states she needs help and will feel suicidal if she is unable to get oit. Pt admits to using etoh, heroin daily- used cocaine only before arriving.
--- NOTE | 2020-02-13 19:30 | ED.PSYCH ---
HPI - Psych General Chief Complaint: Psychiatric Symptoms Stated Complaint: Section 12 Time Seen by Provider: 02/13/20 19:29 History of Present Illness HPI Narrative: patient is a 29-year-old female presents today with having thoughts of suicidal ideation. Patient has a history of cocaine abuse. History of opiate abuse. Was just sent to rehab at [facility]. Patient came right back because she potentially has suicidal ideation. Patient unable to give the detail as to her plan. Patient denies any fever chills and cough and congestion upper respiratory symptoms. Denies any new drugs. Patient from home. patient denies any suicidal homicidal Ideation at this time. Related Data Home Medications Medication Instructions Recorded Confirmed gabapentin 300 mg PO TID 02/06/20 02/13/20 methadone 117 mg PO DAILY 02/06/20 02/13/20 pregabalin 50 mg PO BID 02/07/20 02/13/20 Allergies Allergy/AdvReac Type Severity Reaction Status Date / Time buprenorphine [From SUBOXONE] Allergy Severe ANAPHAYLAXI Verified 02/06/20 19:45 S naloxone [From SUBOXONE] Allergy Severe ANAPHAYLAXI Verified 02/06/20 19:46 S sulfamethoxazole Allergy Intermediate RASH Verified 02/06/20 19:46 [From BACTRIM] trimethoprim [From BACTRIM] Allergy Intermediate RASH Verified 02/06/20 19:46 ibuprofen [From MOTRIN] Allergy Unknown ITCHINESS Verified 02/06/20 19:46 lamotrigine [From LAMICTAL] Allergy Unknown RASH Verified 02/06/20 19:46 prednisone [PREDNISONE] Allergy Unknown UNKNOWN Verified 02/06/20 19:46 quetiapine [From SEROQUEL] Allergy Unknown UNKNOWN Verified 02/06/20 19:46 trazodone [TRAZODONE] Allergy Unknown UNKNOWN Verified 02/06/20 19:46 Review of Systems Review of Systems: Constitutional: No Weight loss, No Fever, No Chills, No Night Sweats, No Fatigue, No Malaise ENT/Mouth: No Hearing loss, No Ear Pain, No Nasal Congestion, No Sinus Pain, No Hoarseness, No sore throat, No Rhinorrhea, No Swallowing Difficulty Eyes: No Eye Pain, No Swelling, No Redness, No Foreign Body, No Discharge, No Vision Changes Cardiovascular: No Chest Pain, No SOB, No Dyspnea on Exertion, No Orthopnea, No Edema, No Palpitations Respiratory: No Cough, No Sputum, No Wheezing, No Smoke Exposure, No Dyspnea Gastrointestinal: No Nausea, No Vomiting, No Diarrhea, No Constipation, No abdominal Pain, No Hematochezia, No Melena Genitourinary: no irregular bleeding, No Dysuria, No Urinary Frequency, No Hematuria, No Urinary Incontinence, No Urgency, No Flank Pain, No Urinary Flow Changes, No Hesitancy Musculoskeletal: No joint pain, No Myalgias, No Joint Swelling Skin: No Skin Lesions, No rash Neuro: No Weakness, No Numbness, No Paresthesias, No Loss of Consciousness, No Dizziness, No Headache Psych: No Anxiety/Panic, No Depression, No SI/HI/AH/VH, No Social Issues, Heme/Lymph: No Bruising, No Bleeding,No Lymphadenopathy Endocrine: No Polyuria, No Polydipsia, No Temperature Intolerance [facility] Past Medical History Medical History Alcohol abuse Cellulitis Heroin abuse No known health problems Family History Family History Other Family history non-contributory Social History Social History Alcohol intake: current Alcohol intake frequency: 0-2 drinks per day Alcohol type: other Smoking Status: Current every day smoker Use of substances other than those prescribed or required for medical reasons: Yes Substance Use Type: Crack/Cocaine and Heroin Substance Use Frequency: Daily Last Used Substance: Just Prior to Admission Any prior treatment program specific to substance use: Yes Advance Directives: No Advance Directives Information Provided: No Physical Exam Vital Signs: Vital Signs: Vital Signs Temp Pulse Resp BP Pulse Ox 02/13/20 23:59 97.1 F 75 18 119/76 100 02/13/20 21:47 97.3 F 87 20 124/74 97 02/13/20 18:05 98.1 F 84 20 128/77 96 Body Mass Index 45.6 O2 sat 96% on room air normal Appearance: Alert. Oriented X3. No acute distress. Eyes: Pupils equal, round and reactive to light. ENT: Pharynx normal. Neck: Normal inspection. Neck supple. No lymph nodes noted. No crepitus CVS: Normal heart rate and rhythm. Pulses normal. Normal S1 and S2 Respiratory: No respiratory distress. Breath sounds normal. No Wheezing. No rales Abdomen: Soft and nontender. No rigidity. No distention. good BS x4 Skin: Skin warm and dry. Normal skin color. Normal skin turgor. Extremities: No lower extremity edema. Neurovascular intact to all extremities. No Lacerations. No Rash Neuro: Oriented X 3. No motor deficit. No sensory deficit. Moving all extermities. No slurred speech MDM - Psych MDM Narrative Medical decision making narrative: patient medically cleared awaiting crisis evaluation. Patient has positive suicidal ideation. Currently in stable condition no distress. Restraints Face to Face Assessment: Face to Face Assessment: Current Situation: After assessment of the patient, a review of the pertinent medical record and a discussion with nursing staff, I feel the patient requires a restrain intervention. Reaction To: [] Medical Condition: [] Behavioral State: [] Continued Need: [] Lab Data Labs: Lab Results 02/13/20 02/13/20 Range/Units 19:35 19:35 Urine Test NEGATIVE (NEGATIVE) Urine Opiates Screen POSITIVE H (Not Detect) Ur Barbiturates Screen Not Detected (Not Detect) Ur Phencyclidine Scrn Not Detected (Not Detect) Ur Amphetamines Screen Not Detected (Not Detect) U Benzodiazepines Scrn POSITIVE H (Not Detect) Urine Cocaine Screen POSITIVE H (Not Detect) U Marijuana (THC) Screen POSITIVE H (Not Detect) Discharge Plan Discharge Prescriptions: No Action gabapentin 300 mg capsule 300 mg PO TID RF: 0 methadone 117 mg PO DAILY RF: 0 pregabalin 50 mg capsule 50 mg PO BID RF: 0
[2020-02-13] MEDS: LORazepam 1 MG TABLET PO (19:45)
[2020-02-13 19:49] LABS: UPreg QC Valid YES; Urine Pregnancy NEGATIVE (NEGATIVE)
[2020-02-13 20:06] LABS: Amphetamine Screen Urine Not Detected (Not Detect); Barbiturates, Urine Not Detected (Not Detect); Benzodiazepines Screen Urine POSITIVE (Not Detect); Cannabinoid Screen Urine POSITIVE (Not Detect); Cocaine Screen Urine POSITIVE (Not Detect); Opiate Screen Urine POSITIVE (Not Detect); Phencyclidine Screen Urine Not Detected (Not Detect)
--- NOTE | 2020-02-13 21:35 | PC.NURSE ---
Patient hyper-verbal/argumentative/fixated on her section 12/demanding librium for her withdrawal. Patient currently in her room lying in her bed. Refused lab draw. Will continue to monitor
[2020-02-13 21:47] VITALS: BP 124/74; PULSE 87; RESP 20; TEMP 36.3; O2SAT 97
[2020-02-13] MEDS: Pregabalin 50 MG CAPSULE PO (21:52)
[2020-02-13] MEDS: Gabapentin 300 MG CAPSULE PO (21:53)
--- NOTE | 2020-02-13 22:32 | PC.NURSE ---
Patient reported she is withdrawing from ETOH, BP 124/74, HR 85, RR 18. Scored 7 on CIWA scale. Demanding for Librium one more time. Patient made aware of her CIWA score, provider made aware/no new order at this time. N faxed/called/spoke with Raghav/confirmed receipt of referral/ETA after 2300 tonight. Complain of Migraine/provider ordered firocet/administered as ordered. Patient appears presenting medication seeking beahvior. Will continue to monitor.
[2020-02-13 23:59] VITALS: BP 119/76; PULSE 75; RESP 18; TEMP 36.2; O2SAT 100
--- NOTE | 2020-02-14 | PC.NURSE ---
Patient just came out of room, demanding librium for withdrawal, vital signs assessed/documented/WNL. BP 119/76, HR 75. BHN called to check on clinician ETA/spoke with Pam notified that clinician will be there shortly. Patient verbally abusive to nurse. Will continue to monitor.
--- NOTE | 2020-02-14 00:57 | PC.NURSE ---
BHN with patient for evaluation.
--- NOTE | 2020-02-14 01:33 | PC.NURSE ---
Patient in bed appears sleeping, asymptomatic of withdrawal at this time, N update patient's disposition, patient is voluntary inpatient EATS bed search, if patient wants discharge can be discharged per disposition. Will continue to monitor ther patient.
[2020-02-14 03:42] VITALS: BP 132/92; PULSE 90; RESP 18; TEMP 36.9; O2SAT 100
[2020-02-14] MEDS: chlordiazePOXIDE HCl 25 MG CAPSULE PO (03:52)
--- NOTE | 2020-02-14 04:02 | PC.NURSE ---
Patient out of room, came to nurses' station, demanding for Librium, vital signs assessed, asymptomatic of withdrawal, patient very disruptive/non re-directable/loud/when asked to lower her voice, patient raised her voice even higher stating I don't care Patient very argumentative to staff making inappropriate racial comments at time. Patient behavior extremely medication seeking justifying her medication demand by saying that she was born when her mother is on high dose of Methadone. Provider notified/ordered Librium 25 mg tablet to calm the patient down. Administered as ordered. Patient after taking her librium didn't stop there continue being disruptive/security called for support/patient rude to security personal. Patients very grandiose, currently in her room. Will continue to monitor.
--- NOTE | 2020-02-14 05:40 | PC.NURSE ---
Patient came out of room asking for more medication, patient tearful, confusion over her disposition, pt now thinks she needs really more help, inpatient level, Fioricet and nicotine lozenge administered as requested/ordered. Will continue to monitor.
--- NOTE | 2020-02-14 06:36 | PC.NURSE ---
Patient came out of room yelling, screaming, demanding librium again, disrupted co-patients sleep few times, one of the patient next room came out very angry told the patient shut up. Staff has to intervene, co-patient was re-directable, avoid confrontation. Security called for support. Patient is manic/confrontational/argumentative/intrusive. Will continue to monitor.
--- NOTE | 2020-02-14 07:32 | PC.NURSE ---
Report received from MAK Lang. Pt awake on arrival, intrusive and difficult to redirect. Pt accusatory, stating that she had not been properly medicated while in the pod. Pt notified that this would be reviewed with her, pt redirected and reminded that staff will review situation with her.
[2020-02-14 08:00] VITALS: BP 125/71; PULSE 89; RESP 18; TEMP 37; O2SAT 99
[2020-02-14] MEDS: Pregabalin 50 MG CAPSULE PO (08:20)
[2020-02-14] MEDS: Gabapentin 300 MG CAPSULE PO (08:20)
--- NOTE | 2020-02-14 08:41 | PC.NURSE ---
Pharmacy called re: Methadone. Care team reviewing situation. Pt tearful, stating that she is 'not receiving treatment for detox,' states that she requires Librium and Fiorecet. Pt with multiple concerns. Offered pt the opportunity to sepak w/ supervisor dehydrogenation, pt declined. Explained to patient that Care team is reviewing and also assisting w/ placement.
--- NOTE | 2020-02-14 08:59 | MHC.CARE ---
CARE Team contacted [facility] Workroom and spoke with Liza - regarding Pt being sent back to [facility] yesterday after being accepted at [facility] for a detox bed. Liza reported she will look into what occurred and find out if they will be able to accommodate Pt. N aware CARE Team is assisting on the detox bed search referral.
--- NOTE | 2020-02-14 09:29 | PC.NURSE ---
Pt requesting to shower and leave. Pt aware that Care team and BHN are attempting to assist w/ placement. Pt denies SI, states that she is not willing to wait in the ED for treatment. Pt reports that she has an apartment she can return to, and that she will attempt to find placement for herself, possible w/ [facility]. Pt states she has been banned from several places, due to her relationship with, now, exboyfriend.
--- NOTE | 2020-02-14 10:14 | MHC.CARE ---
CARE Team faxed over copy of MSU to [facility] Work Room regarding referral to [facility]. Per nursing Pt is requesting to discharge. KIM mcghee indicates Pt is a voluntary EATS Bedsearch. Provider is aware.
--- NOTE | 2020-02-14 10:27 | PC.NURSE ---
Pt requesting discharge multiple times. Pt given discharge instructions as requested. Now requesting to see Pneudraulic Systems Mechanic. Pneudraulic Systems Mechanic in to see pt.
--- NOTE | 2020-02-14 10:45 | PC.NURSE ---
Pt seen by success coach, states that she will be working with him for a detox bed. Pt states she is happy with this plan. Plans to return to apartment and pay the rent.
== END 2020-02-14 10:00 | disposition home or self-care (01) ==
PROVIDERS: Emergency Medicine Emergency Medical Services; Emergency Provider Emergency Medicine
DX: R45.851 Suicidal ideations (principal); F31.9 Bipolar disorder, unspecified; F11.20 Opioid dependence, uncomplicated; F10.10 Alcohol abuse, uncomplicated; F14.10 Cocaine abuse, uncomplicated; F17.200 Nicotine dependence, unspecified, uncomplicated
CPT/HCPCS: 80307; 81025; 99284; 99285

== ENCOUNTER 2020-06-01 14:16 | Emergency (ER) | payer MEDICARE, MEDICAID, SELFPAY ==
[2020-06-01 14:20] VITALS: BP 104/56; PULSE 67; RESP 20; TEMP 36.8; O2SAT 98; BMI 21.4
--- NOTE | 2020-06-01 15:53 | ED.DENTAL ---
HPI - Dental/Oral General Chief complaint: Dental/Oral Stated complaint: dental infection Time Seen by Provider: 06/01/20 15:52 Source: patient Mode of arrival: ambulatory Limitations: no limitations History of Present Illness HPI Narrative: 29 y/o female with history of active IV drug use, on current high dose methadone, depression, poor dental hygiene who presents with acute on chronic left upper dental pain for the last week. She states the tooth pain has come and gone for the last few months and she has not seen a dentist in years. She also reports vaginal discharge and exposure to syphilis last week. She just found out yesterday that her partner who she had unprotected sex with is positive. MD Complaint: tooth pain Location: Tooth # (13-16 & 21) Onset (ago): week(s) Duration: constant Severity: severe Relieving factors: nothing Exacerbating factors: chewing, cold and heat Context: history of dental caries and poor dental care Associated symptoms: gum swelling Treatment prior to arrival: none Related Data Home Medications Medication Instructions Recorded Confirmed gabapentin 300 mg PO TID 02/06/20 02/13/20 methadone 117 mg PO DAILY 02/06/20 02/13/20 pregabalin 50 mg PO BID 02/07/20 02/13/20 Previous Rx's Medication Instructions Recorded doxycycline monohydrate 100 mg PO BID #14 cap 06/01/20 ibuprofen 600 mg PO Q8H PRN #30 tab 06/01/20 Allergies Allergy/AdvReac Type Severity Reaction Status Date / Time buprenorphine [From SUBOXONE] Allergy Severe ANAPHAYLAXI Verified 02/06/20 19:45 S naloxone [From SUBOXONE] Allergy Severe ANAPHAYLAXI Verified 02/06/20 19:46 S sulfamethoxazole Allergy Intermediate RASH Verified 02/06/20 19:46 [From BACTRIM] trimethoprim [From BACTRIM] Allergy Intermediate RASH Verified 02/06/20 19:46 ibuprofen [From MOTRIN] Allergy Unknown ITCHINESS Verified 02/06/20 19:46 lamotrigine [From LAMICTAL] Allergy Unknown RASH Verified 02/06/20 19:46 prednisone [PREDNISONE] Allergy Unknown UNKNOWN Verified 02/06/20 19:46 quetiapine [From SEROQUEL] Allergy Unknown UNKNOWN Verified 02/06/20 19:46 trazodone [TRAZODONE] Allergy Unknown UNKNOWN Verified 02/06/20 19:46 Review of Systems Review of Systems: Constitutional: No Fever, No Chills ENT/Mouth: No sore throat, No Rhinorrhea, No Swallowing Difficulty, +dental pain, +facial pain Eyes: No Eye Pain, No Swelling, No Redness Cardiovascular: No Chest Pain, No SOB Respiratory: No Cough, No Sputum Gastrointestinal: + Nausea, No Vomiting, No Diarrhea, No abdominal Pain Genitourinary: No Dysuria, No Urinary Frequency, No Hematuria, +vaginal discharge. Musculoskeletal: No joint pain, No Myalgias Skin: + Skin Lesions, No rash Neuro: No Weakness, No Numbness, No Dizziness, + Headache Psych: + Anxiety/Panic, + Depression Heme/Lymph: No Bruising, No Lymphadenopathy Endocrine: No Polyuria, No Polydipsia PMFSH Past Medical History Medical History Alcohol abuse Cellulitis Heroin abuse No known health problems Family History Family History Other Family history non-contributory Social History Social History Alcohol intake: current Alcohol intake frequency: 0-2 drinks per day Alcohol type: other Smoking Status: Current every day smoker Substance Use Type: Crack/Cocaine and Heroin Advance Directives: No Advance Directives Information Provided: Yes Physical Exam Vital Signs: Vital Signs: Last Vital Signs Temp 98.2 F 06/01/20 14:20 Pulse 67 06/01/20 14:20 Resp 20 06/01/20 14:20 BP 104/56 L 06/01/20 14:20 Pulse Ox 98 06/01/20 14:20 Body Mass Index 21.4 Appearance: Alert. Oriented X3. No acute distress. HEENT: upper left posterior teeth with several fillings in place, tender throughout #16-18. left lower #21 is cracked. no palpable abscess. no malocclusion. no trismus. no LAD. no facial swelling. CVS: Normal heart rate and rhythm. Pulses normal. Respiratory: No respiratory distress. Skin: Skin warm and dry. Normal skin color. Normal skin turgor. No rashes. Extremities: bilateral upper extremities with innumerable track ureña Pelvic exam deferred per patient request. Neuro: Oriented X 3. No motor deficit. No sensory deficit. Course Course Course Narrative: 29 y/o female presenting with acute on chronic dental pain, heavy IV drug use and exposure to syphilis last week. She has white/yellowish vaginal discharge. Will empirically treat with PCN G 2.4 million units as well as IM Rocephin and PO doxycycline for possible CT/NG. Declining pelvic exam - will check PCR with urine test. Will also get basic metabolic workup and Utox as patient is interested in detox. She reportedly has been calling for 2 weeks and has been unable to get a bed. Raúl from CARE team to see. Reevaluation(s) Reevaluation #1: Delay in lab work due to difficult stick. 2nd phlebotmist to come attempt. CARE team made referrals to detox, likely will have a bed tomorrow. She is willing to be discharged today and follow up with them tomorrow. MDM - Dental/Oral Differential Diagnosis Differential diagnosis: Likely gingival abscess, dental caries, toothache, dental abscess, fracture of tooth and aphthous ulcer Critical Care Time Critical Care Time Critical Care Time: No Discharge Plan Discharge Clinical Impression: Heroin abuse, Toothache, Exposure to syphilis Patient Disposition: Home, Self-Care Instructions: Toothache (ED), Opioid Use Disorder (ED) Additional Instructions: Take the prescribed antibiotic as directed. We will call you if your test result if positive for Syphilis, Gonorrhea or Chlamydia. You have been treated for all 3. Do not have sex until we know the results of you tests and until all of your symptoms are resolved. Follow up with the detox tomorrow - you will likely have a bed. Do not use IV heroin - it can kill you. Prescriptions: New doxycycline monohydrate 100 mg capsule 100 mg PO BID Qty: 14 RF: 0 ibuprofen 600 mg tablet 600 mg PO Q8H PRN (Reason: pain) Qty: 30 RF: 0 No Action gabapentin 300 mg capsule 300 mg PO TID RF: 0 methadone 117 mg PO DAILY RF: 0 pregabalin 50 mg capsule 50 mg PO BID RF: 0
--- NOTE | 2020-06-01 16:42 | MHC.RECOVSUP ---
Recovery Support note: Patient is a 29 year old Mongolian speaking female who presented to [facility] ED due to dental pain and reported to ED provider that she is interested in detox. Patient reports daily heroin use due to dental pain. Patient reports she is on methadone. Patient reports she is very interested in treatment, stating that she will if she continues on like this. Patient reports she is interested in going to [facility], [facility] or [facility]. Message has been left at [facility]. Patient information has been sent to [facility] ( ). Labs not included. Patient information has been sent to [facility] ( ). Labs not included. Patient reports she is interested in remaining in the hospital to work with a coach cleaner for further assistance. ED provider aware.
[2020-06-01] MEDS: Ibuprofen 600 MG TABLET PO (18:03)
[2020-06-01] MEDS: Penicillin G Benzathine 2,400,000 UNIT/4 ML SYRINGE 2400000 UNIT IM (18:04)
[2020-06-01] MEDS: cefTRIAXone sodium 500 MG, Lidocaine HCl 1 % MPF 1 ML IM (18:04)
--- NOTE | 2020-06-01 18:32 | PC.NURSE ---
PT MEDICATED ORDERED. COVID AND URINE SENT. PT DIFFICULT STICK AND IS DECLINING ANY MORE ATTEMPTS TO DRAW BLOOD. PROVIDER AWARE. PLAN D/C TO HOME AND PATIENT HAS BED AT [facility] TOMORROW 9-10 AM.
[2020-06-01 18:33] VITALS: BP 117/60; PULSE 56; RESP 16; TEMP 36.6; O2SAT 100
[2020-06-01 18:40] LABS: Glucose Urine UA NEG (NEG); Leukocyte Esterase Urine NEG (NEG); Nitrite Urine NEG (NEG); Specific Gravity - Urine 1.025 (1.005-1.025); Urine Blood NEG (NEG); Urine Ketones NEG (NEG); Urine Protein NEG (NEG-TRACE)
[2020-06-01 18:47] LABS: Appearance Urine HAZY; Color Urine YELLOW; UPreg QC Valid YES; Urine Pregnancy NEGATIVE (NEGATIVE)
[2020-06-01 18:49] LABS: COVID-19 Test Negative (Negative); IDNOW Serial# 9DD0AD1C
--- NOTE | 2020-06-01 19:11 | MHC.RECOVSUP ---
? Reason for consult detox o Current location: [id number] o Identified substance use concern: Heroin - Seeking ATS (detox) - Support ? Intervention: o Community resources provided o Harm reduction discussion ? Additional information: Meet with Patient and was able to connect patient with [facility] and Get a intake done. Patient will have available in the Morning. Patient left the ED all set to go to [facility] detox.
[2020-06-01 20:45] LABS: Amphetamine Screen Urine Not Detected (Not Detect); Barbiturates, Urine Not Detected (Not Detect); Benzodiazepines Screen Urine Not Detected (Not Detect); Cannabinoid Screen Urine POSITIVE (Not Detect); Cocaine Screen Urine POSITIVE (Not Detect); Opiate Screen Urine POSITIVE (Not Detect); Phencyclidine Screen Urine Not Detected (Not Detect)
[2020-06-03 15:22] LABS: C. trachomatis RNA TMA NOT DETECTED (NOT DETECTED); N. gonorrhoeae RNA TMA NOT DETECTED (NOT DETECTED)
== END 2020-06-01 18:39 | disposition home or self-care (01) ==
PROVIDERS: Physician Assistant; Emergency Provider Emergency Medicine; PCP Internal Medicine
DX: K08.89 Other specified disorders of teeth and supporting structures (principal); F11.20 Opioid dependence, uncomplicated; Z20.2 Contact with and (suspected) exposure to infections with a predominantly sexual mode of transmission; Z20.822 Contact with and (suspected) exposure to COVID-19
CPT/HCPCS: 36415; 80307; 81003; 81025; 87491; 87591; 87635; 96372; 99284; J0561; J0696

== ENCOUNTER 2020-08-14 15:16 | Inpatient (IN) | payer MEDICARE, MEDICAID, SELFPAY ==
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
--- NOTE | ~2020-08-14 | CT_ITS ---
EXAMINATION: CT ANGIOGRAM OF THE CHEST WITH AND WITHOUT CONTRAST (CT PULMONARY ANGIOGRAM FOR PE) CLINICAL INFORMATION: Reason for Exam CP COMPARISON: None TECHNIQUE: Prior to contrast administration, noncontrast localization images were obtained. Subsequently, multidetector volumetric imaging was performed from the thoracic inlet to below the diaphragms following the administration of 85 mL Omnipaque 350 intravenous contrast. No contrast reaction reported Sagittal, coronal, and MIP oblique sagittal reformatted images were obtained on the CT workstation, uploaded to PACS, and reviewed. This CT examination was performed using dose optimization techniques as appropriate, variously including the following: *Automated exposure control *Adjustment of mA and/or kV according to patient size (this includes techniques or standardized protocols for targeted exams where dose is matched to indication/reason for exam; i.e. extremities or head) *Use of iterative reconstruction technique Total exam dose-length product 601 mGy-cm FINDINGS: QUALITY OF STUDY/CONTRAST BOLUS: Satisfactory. PULMONARY ARTERIES: No central or segmental pulmonary emboli. THORACIC AORTA: No aneurysm or dissection. LUNG: No focal consolidation, nodules or masses. A single bullous is present in the left lower lobe. PLEURA: No pleural effusion or pneumothorax. MEDIASTINUM: Normal heart size. No pericardial effusion. No hilar or mediastinal lymphadenopathy. No evidence of septal bowing or right heart strain. CHEST WALL/AXILLA: No axillary or internal mammary lymphadenopathy. OSSEOUS STRUCTURES: No acute or suspicious osseous abnormality. UPPER ABDOMEN: There is mild splenic enlargement with the spleen measuring 12.8 cm in greatest length. I suspect the liver may be enlarged as well but it is not entirely included on this exam. No reflux of contrast into the hepatic veins to suggest elevated right heart pressures. CT/CT angio chest PE protocol IMPRESSION: No evidence of pulmonary emboli Possible hepatosplenomegaly VTE: negative
--- NOTE | ~2020-08-14 | CT_ITS ---
EXAMINATION: CT ABDOMEN AND PELVIS WITH CONTRAST CLINICAL INFORMATION: Left-sided lower abdominal pain COMPARISON: CT abdomen pelvis 01/06/2010 TECHNIQUE: Multidetector volumetric images were obtained from the superior aspect of the liver through the pubic symphysis following administration 85 mL of Omnipaque 350 intravenous contrast. Sagittal and coronal reformatted images were obtained on the technologist's workstation. Oral contrast: No This CT examination was performed using dose optimization techniques as appropriate, variously including the following: *Automated exposure control *Adjustment of mA and/or kV according to patient size (this includes techniques or standardized protocols for targeted exams where dose is matched to indication/reason for exam; i.e. extremities or head) *Use of iterative reconstruction technique DLP: 601 mGy-cm FINDINGS: LUNG BASES: The visualized lung bases are unremarkable. LIVER, GALLBLADDER, AND BILIARY TREE: The liver measures 18 cm in cephalocaudad dimension, near upper limits of normal but has normal shape and attenuation. No focal hepatic lesion or biliary ductal dilatation is present. The gallbladder is unremarkable with no evidence of radiopaque gallstones, gallbladder wall thickening, or obvious pericholecystic inflammatory changes. PANCREAS: Unremarkable. SPLEEN: Spleen size is upper limits of normal. ADRENAL GLANDS: Unremarkable. KIDNEYS AND URETERS: The kidneys are normal in size, shape, and attenuation. No hydronephrosis, hydroureter, or calculi seen. No perinephric stranding. BLADDER: Unremarkable. GASTROINTESTINAL TRACT: The stomach is markedly distended with food material. Gas and stool is present throughout the colon without obstruction. The small bowel is not optimally seen because of lack of mesenteric fat and oral contrast media. The appendix is probably normal but there is certainly no evidence to suggest appendicitis.. ABDOMINAL WALL: No significant hernia is appreciated. LYMPH NODES: No gross retroperitoneal lymphadenopathy. VASCULAR: Unremarkable. PELVIC VISCERA: An anteverted uterus is present. A small subcentimeter fundal fibroid may be present. An abnormal adnexal mass or free intraperitoneal fluid is not seen. OSSEOUS STRUCTURES: Unremarkable. CT/CT abdomen pelvis w con IMPRESSION: A cause for the patient's left-sided lower abdominal pain has not been found. Incidental note made of borderline hepatomegaly.
--- NOTE | ~2020-08-14 | US_ITS ---
EXAMINATION: BILATERAL FOREARMS ULTRASOUND CLINICAL INFORMATION: Forearm cellulitis with question abscess and IV drug use COMPARISON: None TECHNIQUE: Linear array ultrasound was used to examine both forearms in the area of swelling. FINDINGS: Subcutaneous edema is present but no abscess or mass is seen. No fluid collections are identified. US/US extremity nonvascular IMPRESSION: Some mild subcutaneous edema is present but no abscess is seen.
--- NOTE | ~2020-08-14 | NM_ITS ---
EXAMINATION: HIDA SCAN WITH CCK CLINICAL INFORMATION: Right upper quadrant pain, fever and chills. COMPARISON: None TECHNIQUE: Following intravenous administration of 5 mCi of 99m technetium mebrofenin, imaging over the right upper quadrant was obtained up to 60 minutes at 60 minutes 1.1 mcg of CCK was administered intravenously and further imaging was obtained up to 30 minutes. FINDINGS: There is normal hepatic uptake without any focal defect. There is prompt visualization of common bile duct by 10 minutes and small bowel by 12 minutes. Post CCK gallbladder ejection fraction at 30 minutes is 69% and is within normal limits. NM/NM hepatobiliary w pharm IMPRESSION: Normal HIDA scan. Normal gallbladder ejection fraction of 69% at 30 minutes.
--- NOTE | ~2020-08-14 | XR_ITS ---
EXAMINATION: PORTABLE CHEST 1 VIEW CLINICAL INFORMATION: CP . COMPARISON: 11/06/2019. TECHNIQUE: Portable frontal view of the chest was obtained. FINDINGS: The lungs are well expanded. No focal infiltrate, effusion, edema, or pneumothorax. Cardiac and mediastinal silhouettes are within normal limits for technique. No acute bony abnormality seen. XR/XR chest 1V IMPRESSION: No evidence of acute disease.
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
--- NOTE | ~2020-08-14 | XR_ITS ---
Examination: XR ankle RT 2V, XR foot RT 2V Indication: pain s/p fall Comparison: No pertinent prior studies are currently available for comparison. Technique: 2 views of the right ankle with 3 views of the right foot obtained including a lateral view of the foot and ankle Findings: Bones are normal anatomic alignment. I do not appreciate any acute fracture or dislocation. Mild diffuse soft tissue swelling along the dorsal aspect of the foot. There is an old healed fifth metatarsal fracture. No radiopaque foreign body XR/XR ankle RT 2V Impression: No acute fracture or dislocation. Old healed deformity to the distal fifth metatarsal noted.
--- NOTE | ~2020-08-14 | XR_ITS ---
Examination: XR ankle RT 2V, XR foot RT 2V Indication: pain s/p fall Comparison: No pertinent prior studies are currently available for comparison. Technique: 2 views of the right ankle with 3 views of the right foot obtained including a lateral view of the foot and ankle Findings: Bones are normal anatomic alignment. I do not appreciate any acute fracture or dislocation. Mild diffuse soft tissue swelling along the dorsal aspect of the foot. There is an old healed fifth metatarsal fracture. No radiopaque foreign body XR/XR foot RT 2V Impression: No acute fracture or dislocation. Old healed deformity to the distal fifth metatarsal noted.
--- NOTE | ~2020-08-14 | US_ITS ---
EXAMINATION: ULTRASOUND EXTREMITY NONVASCULAR CLINICAL INFORMATION: Cellulitis. Evaluate for abscess. COMPARISON: Previous exam from yesterday TECHNIQUE: Grayscale and color imaging of the soft tissues of the bilateral forearm using a linear transducer FINDINGS: No fluid collection/abscess is seen. There are edematous changes of the soft tissues. There is a echogenic shadowing density in the left forearm that measures 2 x 5 x 5mm and demonstrates acoustic shadowing. This is 3 mm deep from the skin surface. Appearance is questionable for a foreign body. Correlation with x-ray is recommended. US/US extremity nonvascular IMPRESSION: No abscess/fluid collection. Question 2 x 5 x 5 mm foreign body in the superficial soft tissues of the left forearm. Correlation with x-ray recommended.
[2020-08-14 18:12] VITALS: BP 138/86; PULSE 67; RESP 18; TEMP 36.4; O2SAT 96; BMI 23.8
--- NOTE | 2020-08-14 19:33 | ECG_ITS ---
Test Reason : SUBST ABUSE Blood Pressure : / mmHG Vent. Rate : 072 BPM Atrial Rate : 072 BPM P-R Int : 124 ms QRS Dur : 084 ms QT Int : 422 ms P-R-T Axes : 004 087 026 degrees QTc Int : 462 ms Normal sinus rhythm Normal ECG When compared with ECG of 06-FEB-2020 17:06, Vent. rate has increased BY 26 BPM Referred By: Everardo Fernandez Electronically Signed By:NUNO CANTU
--- NOTE | 2020-08-14 19:54 | PC.NURSE ---
Pt moved into hospital bed for comfort.
--- NOTE | 2020-08-14 20:00 | ED_ITS ---
HPI - General Adult General Chief complaint: Psychiatric Symptoms Stated complaint: Abscess Time Seen by Provider: 08/14/20 19:32 Source: patient Mode of arrival: ambulatory Limitations: no limitations History of Present Illness HPI narrative: This is a 29-year-old female with history of IV drug use preferred IV heroin on methadone in addition to this history of depression/anxiety who presents today with multiple complaints 1. States she was doing a cartwheel and she sprained her right ankle she has some pain in the right ankle and foot. States no other injury this occurred today prior to arrival. 2. States she has abscessed areas on her bilateral arms from using IV drug use she was seen 6 days ago or so and she was given Keflex and doxycycline p.o. she has been taking this however this has made no improvement and feels like the redness is there and the abscesses are ?growing?. Furthermore she states that she is getting chills now and has chest pain. She otherwise denies any upper respiratory symptoms. Aside from subjective chills there is no reported fever. No lower extremity swelling or shortness of breath. 3. She made vague SI statements to the RN during triage states that she feels like she is ?done with it? and suicidal with no specific plan expressed. Of note patient was [facility] due to the fact that she had was called several times and there was no response as she went outside to smoke. Onset (ago): week(s) Location: lower extremity Radiation: non-radiation Severity: moderate Severity scale (1-10): 5 Quality: burning Pain Consistency: constant Relieving factors: none Exacerbating factors: none Associated symptoms: chest pain Treatments prior to arrival: other (Keflex/doxycycline) Related Data Home Medications Medication Instructions Recorded Confirmed gabapentin 300 mg PO TID 02/06/20 08/14/20 cephalexin 1 cap PO QID 08/14/20 08/14/20 clonidine HCl 0.1 mg PO TID PRN 08/14/20 08/14/20 hydroxyzine pamoate 25 mg PO QID PRN 08/14/20 08/14/20 methadone [Methadone Intensol] 103 mg PO DAILY 08/14/20 Previous Rx's Medication Instructions Recorded doxycycline monohydrate 100 mg PO BID #14 cap 06/01/20 Allergies Allergy/AdvReac Type Severity Reaction Status Date / Time buprenorphine [From SUBOXONE] Allergy Severe ANAPHAYLAXI Verified 02/06/20 19:45 S naloxone [From SUBOXONE] Allergy Severe ANAPHAYLAXI Verified 02/06/20 19:46 S sulfamethoxazole Allergy Intermediate RASH Verified 02/06/20 19:46 [From BACTRIM] trimethoprim [From BACTRIM] Allergy Intermediate RASH Verified 02/06/20 19:46 ibuprofen [From MOTRIN] Allergy Unknown ITCHINESS Verified 02/06/20 19:46 lamotrigine [From LAMICTAL] Allergy Unknown RASH Verified 02/06/20 19:46 prednisone [PREDNISONE] Allergy Unknown UNKNOWN Verified 02/06/20 19:46 quetiapine [From SEROQUEL] Allergy Unknown UNKNOWN Verified 02/06/20 19:46 trazodone [TRAZODONE] Allergy Unknown UNKNOWN Verified 02/06/20 19:46 Review of Systems Review of Systems: Constitutional: No Weight loss, No Fever, No Chills, No Night Sweats, No Fatigue, No Malaise ENT/Mouth: No Hearing loss, No Ear Pain, No Nasal Congestion, No Sinus Pain, No Hoarseness, No sore throat, No Rhinorrhea, No Swallowing Difficulty Eyes: No Eye Pain, No Swelling, No Redness, No Foreign Body, No Discharge, No Vision Changes Cardiovascular: + Chest Pain, No SOB, No Dyspnea on Exertion, No Orthopnea, No Edema, No Palpitations Respiratory: No Cough, No Sputum, No Wheezing, No Smoke Exposure, No Dyspnea Gastrointestinal: No Nausea, No Vomiting, No Diarrhea, No Constipation, No abdominal Pain, No Hematochezia, No Melena Genitourinary: No Dysuria, No Urinary Frequency, No Hematuria, No Urinary Incontinence, No Urgency, No Flank Pain, No Urinary Flow Changes, No Hesitancy Musculoskeletal: No joint pain, No Myalgias, No Joint Swelling, , right ankle pain as noted per HPI Skin: As noted per HPI Neuro: No Weakness, No Numbness, No Paresthesias, No Loss of Consciousness, No Dizziness, No Headache Psych: + Anxiety/Panic, No Depression, + SI/HI/AH/VH, No Social Issues Heme/Lymph: No Bruising, No Bleeding,No Lymphadenopathy Endocrine: No Polyuria, No Polydipsia, No Temperature Intolerance Yes all other systems are reviewed and are negative PMFSH Past Medical History Medical History Alcohol abuse Cellulitis Heroin abuse No known health problems Family History Family History Other Family history non-contributory Social History Social History Alcohol intake: unknown Smoking Status: Unknown if ever smoked Substance Use Type: IV Drugs Advance Directives: No Advance Directives Information Provided: No Physical Exam Vital Signs: Vital Signs: Last Vital Signs Temp 97.6 F 08/14/20 18:12 Pulse 73 08/14/20 21:11 Resp 16 08/14/20 21:11 BP 118/51 L 08/14/20 21:11 Pulse Ox 100 08/14/20 21:11 Body Mass Index 23.8 Reviewed Const: Other: Disheveled, ill-kempt, for hygiene. General: cooperative; No acute distress or intoxicated appearing Nutritional Appearance: average body habitus Orientation/consciousness: patient oriented x3 HENMT: Head: Yes normal to inspection Ears: hearing grossly normal bilaterally Eyes: General: appearance normal, both eyes and all related structures Visual Freeman: normal visual freeman by confrontation Neck: Neck: Yes normal visual inspection, No positive Brudzinski's sign, No positive Kernig's sign and No tender Thyroid: Thyroid normal Chest: Chest palpation & inspection: normal inspection of the chest Sammi st/axilla inspection: normal inspection of the breasts Resp: Effort & Inspection: normal respiratory effort Auscultation: clear to auscultation bilaterally Cardio: Other: No murmur Jugular venous distension: no JVD Rate: regular rate Rhythm: regular rhythm Heart sounds: S1 normal heart sound present and S2 normal heart sound present GI: Inspection: Yes normal to inspection Palpation (GI): Soft to palpation Percussion: Yes normal to percussion Auscultation: normal bowel sounds : General: Yes no CVA tenderness Back/Spine/Pelvis: Back: no CVA tenderness Skin: Other: Extensive IV track marking to bilateral upper extremities. Slight erythema and swelling to the right forearm area distally as well as left forearm. Neuro: General: patient oriented x3 Extrem: General: Yes normal to inspection Course Reevaluation(s) Reevaluation #1: 1940 Will need labs including blood cultures and lactic acid. Nontoxic, not tachycardic, afebrile but given her history will get chest x-ray in also EKG and cardiac enzymes and right ankle/foot x-ray. She is more focused on getting narcotic pain medication as well has been somewhat hostile towards other staff but I was able to redirect. She is agreeable that she needs the help and if admission is warranted she will stay. Furthermore given her vague SI statements I will get crisis team involved once patient is medically clear. Consultations Consultation #1: [id number] Case discussed with hospitalist for admission did request CTA given the chest pain rule out acute infectious pathology. This is ordered hospitalist will follow-up with this. Patient remained stable empiric antibiotics provided patient will be admitted to hospice services. Medical Decision Making Lab Data Result diagrams: 08/14/20 20:13 08/14/20 20:12 Labs: Lab Results 08/14/20 08/14/20 08/14/20 Range/Units 20:11 20:11 20:12 WBC (4.8-10.8) X10*3/uL RBC (4.20-5.50) X10*6/uL Hgb (12.0-16.0) g/dl Hct (37-47) % MCV (80-98) fL MCH (27.0-33.0) pg MCHC (31.0-35.0) g/dl RDW (11.0-16.0) % Plt Count (160-400) X10*3/uL MPV (9.4-12.3) fL Immature Gran % (Auto) (0.0-0.4) % Neut % (Auto) (45-73) % Lymph % (Auto) (20-40) % Nye % (Auto) (2-11) % Eos % (Auto) (0-4) % Baso % (Auto) (0-2) % Lymph # (Auto) (1.2-4.9) X10*3/uL Nye # (Auto) (0.1-1.2) X10*3/uL Eos # (Auto) (0.0-0.4) X10*3/uL Baso # (Auto) (0.0-0.2) X10*3/uL Abs Immat Gran (auto) (0.00-0.03) X10*3/uL Absolute Neuts (auto) (2.0-8.3) X10*3/uL Absolute Nucleated RBC (0.0-0.012) X10*3/uL Nucleated RBC % (auto) (0.0-0.2) /100WBC ESR (0-20) MM/HR PT (10.8-13.0) SEC INR (0.9-1.1) APTT (24.1-38.0) SEC Sodium 137 (135-145) mmol/L Potassium 3.7 (3.3-5.1) mmol/L Chloride 102 (96-108) mmol/L Carbon Dioxide 27 (22-29) mmol/L Anion Gap 12 (12-20) BUN 7 L (9-16) mg/dL Creatinine 0.64 (0.5-1.4) mg/dL Estim Creat Clear Calc 103.4 Estimated GFR > 60 Random Glucose 84 (60-115) mg/dL Lactic Acid (0.5-2.0) mmol/L Calcium 9.1 (8.4-10.2) mg/dL Total Bilirubin 0.4 (0.0-1.0) mg/dL AST 29 (5-31) U/L ALT 21 (0-31) U/L Alkaline Phosphatase 73 (39-117) U/L Troponin I High Sens < 3.5 (<3.5-17.0) ng/L C-Reactive Protein 3.23 H (< or = 0.50) mg/dL Total Protein 7.1 (6.5-8.0) g/dL Albumin 3.8 (3.5-5.0) g/dL COVID-19 ([facility]) (Negative) COVID-19 Clin Com 08/14/20 08/14/20 08/14/20 Range/Units 20:12 20:12 20:13 WBC 7.8 (4.8-10.8) X10*3/uL RBC 3.74 L (4.20-5.50) X10*6/uL Hgb 9.3 L (12.0-16.0) g/dl Hct 29.6 L D (37-47) % MCV 79.1 L (80-98) fL MCH 24.9 L (27.0-33.0) pg MCHC 31.4 (31.0-35.0) g/dl RDW 15.6 (11.0-16.0) % Plt Count 262 D (160-400) X10*3/uL MPV 10.3 (9.4-12.3) fL Immature Gran % (Auto) 0.1 (0.0-0.4) % Neut % (Auto) 45.6 (45-73) % Lymph % (Auto) 39.9 (20-40) % Nye % (Auto) 11.0 (2-11) % Eos % (Auto) 2.6 (0-4) % Baso % (Auto) 0.8 (0-2) % Lymph # (Auto) 3.1 (1.2-4.9) X10*3/uL Nye # (Auto) 0.9 (0.1-1.2) X10*3/uL Eos # (Auto) 0.2 (0.0-0.4) X10*3/uL Baso # (Auto) 0.1 (0.0-0.2) X10*3/uL Abs Immat Gran (auto) 0.01 (0.00-0.03) X10*3/uL Absolute Neuts (auto) 3.6 (2.0-8.3) X10*3/uL Absolute Nucleated RBC 0.000 (0.0-0.012) X10*3/uL Nucleated RBC % (auto) 0.0 (0.0-0.2) /100WBC ESR (0-20) MM/HR PT 12.6 (10.8-13.0) SEC INR 1.1 (0.9-1.1) APTT 33.6 (24.1-38.0) SEC Sodium (135-145) mmol/L Potassium (3.3-5.1) mmol/L Chloride (96-108) mmol/L Carbon Dioxide (22-29) mmol/L Anion Gap (12-20) BUN (9-16) mg/dL Creatinine (0.5-1.4) mg/dL Estim Creat Clear Calc Estimated GFR Random Glucose (60-115) mg/dL Lactic Acid 0.5 (0.5-2.0) mmol/L Calcium (8.4-10.2) mg/dL Total Bilirubin (0.0-1.0) mg/dL AST (5-31) U/L ALT (0-31) U/L Alkaline Phosphatase (39-117) U/L Troponin I High Sens (<3.5-17.0) ng/L C-Reactive Protein (< or = 0.50) mg/dL Total Protein (6.5-8.0) g/dL Albumin (3.5-5.0) g/dL COVID-19 ([facility]) (Negative) COVID-19 Clin Com 08/14/20 08/14/20 Range/Units 20:13 20:13 WBC (4.8-10.8) X10*3/uL RBC (4.20-5.50) X10*6/uL Hgb (12.0-16.0) g/dl Hct (37-47) % MCV (80-98) fL MCH (27.0-33.0) pg MCHC (31.0-35.0) g/dl RDW (11.0-16.0) % Plt Count (160-400) X10*3/uL MPV (9.4-12.3) fL Immature Gran % (Auto) (0.0-0.4) % Neut % (Auto) (45-73) % Lymph % (Auto) (20-40) % Nye % (Auto) (2-11) % Eos % (Auto) (0-4) % Baso % (Auto) (0-2) % Lymph # (Auto) (1.2-4.9) X10*3/uL Nye # (Auto) (0.1-1.2) X10*3/uL Eos # (Auto) (0.0-0.4) X10*3/uL Baso # (Auto) (0.0-0.2) X10*3/uL Abs Immat Gran (auto) (0.00-0.03) X10*3/uL Absolute Neuts (auto) (2.0-8.3) X10*3/uL Absolute Nucleated RBC (0.0-0.012) X10*3/uL Nucleated RBC % (auto) (0.0-0.2) /100WBC ESR 30 H (0-20) MM/HR PT (10.8-13.0) SEC INR (0.9-1.1) APTT (24.1-38.0) SEC Sodium (135-145) mmol/L Potassium (3.3-5.1) mmol/L Chloride (96-108) mmol/L Carbon Dioxide (22-29) mmol/L Anion Gap (12-20) BUN (9-16) mg/dL Creatinine (0.5-1.4) mg/dL Estim Creat Clear Calc Estimated GFR Random Glucose (60-115) mg/dL Lactic Acid (0.5-2.0) mmol/L Calcium (8.4-10.2) mg/dL Total Bilirubin (0.0-1.0) mg/dL AST (5-31) U/L ALT (0-31) U/L Alkaline Phosphatase (39-117) U/L Troponin I High Sens (<3.5-17.0) ng/L C-Reactive Protein (< or = 0.50) mg/dL Total Protein (6.5-8.0) g/dL Albumin (3.5-5.0) g/dL COVID-19 ([facility]) Negative (Negative) COVID-19 Clin Com See Note Discharge Plan Discharge Clinical Impression: Heroin abuse, Cellulitis of arm, Chest pain Patient Disposition: Home, Self-Care
[2020-08-14 20:20] LABS: MANUAL DIFF FLAG NO
[2020-08-14 20:22] LABS: Basophils Absolute Auto 0.1 X10*3/uL (0.0-0.2); Basophils Percent Auto 0.8 % (0-2); Eosinophils Absolute Auto 0.2 X10*3/uL (0.0-0.4); Eosinophils Percent Auto 2.6 % (0-4); Hematocrit 29.6 % (37-47); Hemoglobin 9.3 g/dl (12.0-16.0); Imm Gran Abs Auto 0.01 X10*3/uL (0.00-0.03); Imm Gran Pct Auto 0.1 % (0.0-0.4); Lymphocytes Absolute Auto 3.1 X10*3/uL (1.2-4.9); Lymphocytes Percent Auto 39.9 % (20-40); Mean Corpuscular HGB Conc 31.4 g/dl (31.0-35.0); Mean Corpuscular Hemoglobin 24.9 pg (27.0-33.0); Mean Corpuscular Volume 79.1 fL (80-98); Mean Platelet Volume 10.3 fL (9.4-12.3); Monocytes Absolute Auto 0.9 X10*3/uL (0.1-1.2); Neutrophils Absolute Auto 3.6 X10*3/uL (2.0-8.3); Neutrophils Percent Auto 45.6 % (45-73); Platelet Count 262 X10*3/uL (160-400); Red Blood Count 3.74 X10*6/uL (4.20-5.50); Red Cell Distribution Width 15.6 % (11.0-16.0); White Blood Count 7.8 X10*3/uL (4.8-10.8)
[2020-08-14] MEDS: 0.9 % Sodium Chloride 1,000 ML 999 ML IV (20:25)
[2020-08-14] MEDS: Ketorolac Tromethamine 30 MG/ML VIAL IVPUSH (20:25)
[2020-08-14 20:29] LABS: INTERNATIONAL NORM RATIO 1.1 (0.9-1.1); Prothrombin Time 12.6 SEC (10.8-13.0)
[2020-08-14 20:31] LABS: Partial Thromboplastin Time 33.6 SEC (24.1-38.0)
[2020-08-14 20:40] LABS: COVID-19 Test Negative (Negative)
[2020-08-14 20:44] LABS: Lactic Acid 0.5 mmol/L (0.5-2.0)
[2020-08-14 20:48] LABS: C Reactive Protein 3.23 mg/dL (< or = 0.50)
[2020-08-14 20:50] LABS: Alanine Aminotransferase 21 U/L (0-31); Albumin Level 3.8 g/dL (3.5-5.0); Alkaline Phosphatase 73 U/L (39-117); Anion Gap 12 (12-20); Aspartate Amino Transferase 29 U/L (5-31); Bilirubin Total 0.4 mg/dL (0.0-1.0); Blood Urea Nitrogen 7 mg/dL (9-16); Calcium 9.1 mg/dL (8.4-10.2); Carbon Dioxide 27 mmol/L (22-29); Chloride 102 mmol/L (96-108); Creatinine Clr Calc Pharmacy 103.4; Estimated Glomerular Filt Rate > 60; Glucose Random 84 mg/dL (60-115); Potassium 3.7 mmol/L (3.3-5.1); Sodium 137 mmol/L (135-145); Total Protein 7.1 g/dL (6.5-8.0)
[2020-08-14 20:55] LABS: Troponin-I High Sensitivity < 3.5 ng/L (<3.5-17.0)
[2020-08-14 21:02] LABS: Erythrocyte Sedimentation Rate 30 MM/HR (0-20)
[2020-08-14 21:11] VITALS: BP 118/51; PULSE 73; RESP 16; O2SAT 100
[2020-08-14] MEDS: Piperacillin Sodium/Tazobactam 3.375 GM in 0.9 % Sodium Chloride 50 ML IV (22:08)
--- NOTE | 2020-08-14 22:23 | PC.NURSE ---
Pt moved to room 5 for bedside ultrasound.
[2020-08-14 22:34] LABS: Glucose Urine UA NEG (NEG); Leukocyte Esterase Urine NEG (NEG); Nitrite Urine NEG (NEG); Specific Gravity - Urine >= 1.030 (1.005-1.025); Urine Blood 1+ (NEG); Urine Ketones 5 MG/DL (NEG); Urine Protein TRACE MG/DL (NEG-TRACE)
[2020-08-14 22:36] LABS: UPreg QC Valid YES; Urine Pregnancy NEGATIVE (NEGATIVE)
[2020-08-14] MEDS: vancomycin HCL 1,000 MG in 0.9 % Sodium Chloride 250 ML 270 MG IV (22:37)
[2020-08-14] MEDS: 0.9 % Sodium Chloride 1,000 ML 100 ML IVCONT (22:37)
[2020-08-14 22:41] LABS: Bacteria Urine 1+ /LPF; Mucus Urine 2+ /LPF; Squamous Epithelial Cell Urine 1+ /LPF
[2020-08-14 22:46] VITALS: BP 118/73; PULSE 85; RESP 20; TEMP 36.4; O2SAT 98
[2020-08-14 22:48] LABS: Appearance Urine CLEAR; Color Urine YELLOW
[2020-08-14 22:50] LABS: Amphetamine Screen Urine Not Detected (Not Detect); Barbiturates, Urine Not Detected (Not Detect); Benzodiazepines Screen Urine Not Detected (Not Detect); Cannabinoid Screen Urine POSITIVE (Not Detect); Cocaine Screen Urine POSITIVE (Not Detect); Opiate Screen Urine POSITIVE (Not Detect); Phencyclidine Screen Urine Not Detected (Not Detect)
--- NOTE | 2020-08-14 22:58 | PC.NURSE ---
Pt getting upset with staff that she needs pain medication and things for withdrawal . This RN offered patient Atarax and Clonidine as ordered PRN, pt declining stating Thats what i fucking take at home, I need my other meds now or else I am going to lose it . Provider to bedside to discuss with patient. Sit remains in place
[2020-08-14] MEDS: Nicotine Polacrilex 2 MG GUM BUCCAL (23:01)
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
[2020-08-14] MEDS: iohexoL 350 MG/ML 100 ML INFUS..BTL 85 ML IV (23:38)
[2020-08-15] MEDS: cloNIDine HCL 0.1 MG TABLET PO ×3 (00:02→15:03)
[2020-08-15] MEDS: ondansetron HCL 4 MG/2 ML VIAL IVPUSH ×3 (00:02→23:56)
[2020-08-15] MEDS: oxyCODONE HCl Immed Release 5 MG TABLET 10 MG PO ×4 (00:03→21:35)
[2020-08-15] MEDS: hydrOXYzine HCL 25 MG TABLET PO ×4 (00:04→21:44)
[2020-08-15] MEDS: Gabapentin 300 MG CAPSULE PO ×4 (00:05→21:44)
[2020-08-15] MEDS: Acetaminophen 325 MG TABLET 650 MG PO ×3 (00:10→22:31)
--- NOTE | 2020-08-15 00:20 | PC.NURSE ---
Patient crying, emotionally labile, calmed down. Requesting migraine medication that is not in med rec. Requesting higher dose of oxycodone - Dr Daley made aware of patient requests and agitation - ordered one time dose 10mg oxycodone. Oxycodone, atarax, clonidine, tylenol, and zofran given to patient. See JUL. Patient off floor for short time for ultrasound. results pending.
[2020-08-15 04:03] VITALS: BP 99/43; PULSE 71; RESP 18; TEMP 36.2; O2SAT 98
[2020-08-15] MEDS: Piperacillin Sodium/Tazobactam 3.375 GM in 0.9 % Sodium Chloride 50 ML IV ×4 (04:15→21:44)
--- NOTE | 2020-08-15 05:23 | PC.NURSE ---
Addendum entered by Rufus Malone RN 08/15/20 08:19: HR on portable monitor 60's SR Original Note: Order for admit to med surg, transfer order to tele - confirmed level of care w/ Dr berger - tele ordered - plan for admit to [facility]. Patient put on monitor.
--- NOTE | 2020-08-15 06:52 | PC.NURSE ---
Patient denies SI - cooperative w/ care now. Vitals stable.
[2020-08-15] MEDS: vancomycin HCL 750 MG in 0.9 % Sodium Chloride 250 ML 265 MG IV ×2 (07:06→15:04)
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
--- NOTE | 2020-08-15 07:55 | PC.NURSE ---
Alcira RN electrical plumbing supervisor given nurse to nurse report for transfer to floor. Patient increase agitation about methadone dose verification - dose verified from the [facility].
[2020-08-15 08:00] VITALS: BP 119/66; PULSE 83; RESP 18; TEMP 36.5; O2SAT 100
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
[2020-08-15 11:55] VITALS: BP 99/47; PULSE 63; RESP 18; TEMP 36.2; O2SAT 98
--- NOTE | 2020-08-15 12:22 | P.CNID_ITS ---
History of Present Illness Data of Consult Service Date: 08/15/20 Requesting physician: Hero Wheeler Primary Care Provider: Lacho Jain MD HPI Reason for consult: cellulitis,septic thrombophlebitis She comes in with reddened arm areas right side She has injected last week or two she reports She has no fever or chills now ,but had earlier She has concern over endocarditis Review of Systems Review of Systems: Yes all other systems are reviewed and are negative PMFSH Past Medical History Medical History Alcohol abuse Cellulitis Heroin abuse No known health problems Family History Family History Other Family history non-contributory Social History Social History Household Members: Friend(s) and Other Alcohol intake: unknown Smoking Status: Current every day smoker Tobacco Type: Cigarette Substance Use Type: Crack/Cocaine, Heroin, IV Drugs and Opiates Meds Allergies Allergy/AdvReac Type Severity Reaction Status Date / Time buprenorphine [From SUBOXONE] Allergy Severe ANAPHAYLAXI Verified 08/15/20 04:12 S naloxone [From SUBOXONE] Allergy Severe ANAPHAYLAXI Verified 08/15/20 04:12 S sulfamethoxazole Allergy Intermediate RASH Verified 08/15/20 04:12 [From BACTRIM] trimethoprim [From BACTRIM] Allergy Intermediate RASH Verified 08/15/20 04:12 lamotrigine [From LAMICTAL] Allergy Unknown RASH Verified 08/15/20 04:12 prednisone [PREDNISONE] Allergy Unknown UNKNOWN Verified 08/15/20 04:12 quetiapine [From SEROQUEL] Allergy Unknown UNKNOWN Verified 08/15/20 04:12 trazodone [TRAZODONE] Allergy Unknown UNKNOWN Verified 08/15/20 04:12 Active Medications: Current Medications Generic Name Dose Route Start Last Admin Trade Name Freq PRN Reason Stop Dose Admin Acetaminophen 650 mg 08/14/20 21:38 08/15/20 10:33 Acetaminophen 325 Mg Tablet PO 650 mg Q6H PRN Administration Pain, Mild (Pain Scale 1-3) Clonidine HCl 0.1 mg 08/14/20 21:40 08/15/20 09:16 Clonidine Hcl 0.1 Mg Tablet PO 0.1 mg TID PRN Administration Withdrawal Symptoms Protocol Gabapentin 300 mg 08/15/20 09:00 08/15/20 09:15 Gabapentin 300 Mg Capsule PO 300 mg TID JAILENE Administration Hydroxyzine HCl 25 mg 08/14/20 21:40 08/15/20 09:16 Hydroxyzine Hcl 25 Mg Tablet PO 25 mg QID PRN Administration Anxiety Sodium Chloride 1,000 mls @ 100 mls/hr 08/14/20 21:45 08/15/20 09:42 Ns IVCONT Infused .Q10H JAILENE Infusion Vancomycin HCl 750 mg/ Sodium 265 mls @ 265 mls/hr 08/15/20 06:00 08/15/20 08:56 Chloride IV Infused Q8H JAILENE Infusion Piperacillin Sod/Tazobactam 50 mls @ 100 mls/hr 08/15/20 04:00 08/15/20 11:30 Sod 3.375 gm/ Sodium Chloride IV Infused Q6H JAILENE Infusion Nicotine Polacrilex 2 mg 08/15/20 02:01 08/15/20 09:16 Nicotine Polacrilex 2 Mg Lozenge BUCCAL 2 mg Q2H PRN Administration Nicotine Cravings Ondansetron HCl 4 mg 08/14/20 23:30 08/15/20 10:39 Ondansetron Hcl 4 Mg/2 Ml Vial IVPUSH 4 mg Q8H PRN Administration Nausea and Vomiting Oxycodone HCl 10 mg 08/15/20 02:54 08/15/20 10:32 Oxycodone Hcl Immed Release 5 Mg Tablet PO 10 mg Q6H PRN Administration Pain, Moderate (Pain Scale 4-6 Pharmacy Consult 1 each 08/14/20 21:38 Consult Rx Vancomycin Dosing MISCELLANE DAILY PRN Consult order Senna 17.2 mg 08/14/20 21:38 Sennosides 8.6 Mg Tablet PO BEDTIME PRN Constipation Sodium Chloride 3 ml 08/15/20 00:00 08/15/20 08:55 0.9 % Sodium Chloride Flush 3 Ml Syringe IVFLUSH Not Given QSHIFT [facility] Home Medications Medication Instructions Recorded Confirmed Last Taken Type gabapentin 300 mg PO TID 02/06/20 08/14/20 02/13/20 09:00 History cephalexin 1 cap PO QID 08/14/20 08/14/20 Unknown History clonidine HCl 0.1 mg PO TID PRN 08/14/20 08/14/20 Unknown History hydroxyzine pamoate 25 mg PO QID PRN 08/14/20 08/14/20 Unknown History methadone [Methadone Intensol] 103 mg PO DAILY 08/14/20 08/15/20 Unknown History Physical Exam Vital Signs: Vital Signs: Last Vital Signs Temp 97.1 F 08/15/20 11:55 Pulse 63 08/15/20 11:55 Resp 18 08/15/20 11:55 BP 99/47 L 08/15/20 11:55 Pulse Ox 98 08/15/20 11:55 Body Mass Index 23.8 Const: General: cooperative Orientation/consciousness: patient oriented x3 HENMT: Head: Yes normal to inspection Mouth: Normal oral and palatal mucosa present Resp: Effort & Inspection: normal respiratory effort Cardio: Rate: regular rate Rhythm: regular rhythm GI: Palpation (GI): Soft to palpation and nontender Skin: General skin exam: no rashes or lesions noted Neuro: General: patient oriented x3 Extrem: Other: right wrist area swollen mildly,mild cellulitis Results Labs CBC & Chem 7: 08/14/20 20:13 08/14/20 20:12 Labs: Short CBC 08/14/20 Range/Units 20:13 WBC 7.8 (4.8-10.8) X10*3/uL Hgb 9.3 L (12.0-16.0) g/dl Hct 29.6 L D (37-47) % Plt Count 262 D (160-400) X10*3/uL BMP 08/14/20 20:12 Sodium 137 Potassium 3.7 Chloride 102 Carbon Dioxide 27 BUN 7 L Creatinine 0.64 Calcium 9.1 Liver Function 08/14/20 Range/Units 20:12 Total Bilirubin 0.4 (0.0-1.0) mg/dL AST 29 (5-31) U/L ALT 21 (0-31) U/L Alkaline Phosphatase 73 (39-117) U/L Albumin 3.8 (3.5-5.0) g/dL Urine 08/14/20 Range/Units 22:22 Urine Color YELLOW Urine Appearance CLEAR Urine pH 6.0 (5.0-8.0) Ur Specific [place] >= 1.030 H (1.005-1.025) Urine Protein TRACE (NEG-TRACE) MG/DL Urine Glucose (UA) NEG (NEG) MG/DL Assessment and Plan (1) Cellulitis of arm: Problem details: She has improvement in arm cellulitis There is concern over gram positive ,anerobes,gram negative even She is at risk for HIV,Hepatitis C active Status: Acute Would continue Zosyn and Vancomycin for now possible polymicrobial nate Check Hepatitis C viral load Check HIV (2) Alcohol abuse: Status: Acute (3) Heroin abuse: Status: Acute
--- NOTE | 2020-08-15 13:41 | HO.ADDICT_ITS ---
History of Present Illness Date of Service: 08/15/2020 Chief Complaint: B/L Forearm Cellulitis Reason for Consult: opioid use disorder--restart methadone Requesting physician: Hero Wheeler Discussed with referring provider: Yes Sources of Information: patient interviewed and chart reviewed Additional Sources of Information: Recovery support RN HPI Narrative: Patient is a 29 year old female with history of OUD currently medically admitted with cellulitis secondary to IVDU Consult requested as patient has been on MAT (methadone), but has not been dosed in 4 days. Dose verified at 103mg QD Melissakierran seen in room 361. Awake, alert engaged in interview. Patient irritable and angry that she was not going to receive her full dose of methadone. Attempted to explain that based on missed doses, medication would have to be titrated back up. Pt verbalizing displeasure with this plan, argumentative, but agreed to take reduced dose. Full substance use history not obtained due to patients level of irritability. Medical Evaluation Reviewed: Yes Personal & Social History: not reviewed Review of Systems Constitutional: Reports body ache(s), Reports chills and Reports malaise Gastrointestinal: Denies diarrhea, Denies nausea and Denies vomiting Psychiatric: Reports anxiety and Reports irritability Diagnostics Vital Signs (24Hr): Vital Signs - 24 hr 08/14/20 18:12 08/14/20 21:11 08/14/20 22:46 Temperature 97.6 F 97.6 F Pulse Rate 67 73 85 Respiratory Rate 18 16 20 Blood Pressure 138/86 118/51 L 118/73 Pulse Oximetry 96 100 98 08/15/20 04:03 08/15/20 08:00 08/15/20 11:55 Temperature 97.2 F 97.7 F 97.1 F Pulse Rate 71 83 63 Respiratory Rate 18 18 18 Blood Pressure 99/43 L 119/66 99/47 L Pulse Oximetry 98 100 98 Body Mass Index 23.8 Labs Results: 08/14/20 20:13 08/14/20 20:12 Labs: Laboratory Results - last 48 hr 08/14/20 08/14/20 08/14/20 20:11 20:11 20:12 WBC RBC Hgb Hct MCV MCH MCHC RDW Plt Count MPV Immature Gran % (Auto) Neut % (Auto) Lymph % (Auto) [place] % (Auto) Eos % (Auto) Baso % (Auto) Lymph # (Auto) [place] # (Auto) Eos # (Auto) Baso # (Auto) Abs Immat Gran (auto) Absolute Neuts (auto) Absolute Nucleated RBC Nucleated RBC % (auto) ESR PT INR APTT Sodium 137 Potassium 3.7 Chloride 102 Carbon Dioxide 27 Anion Gap 12 BUN 7 L Creatinine 0.64 Estim Creat Clear Calc 103.4 Estimated GFR > 60 Random Glucose 84 Lactic Acid Calcium 9.1 Total Bilirubin 0.4 AST 29 ALT 21 Alkaline Phosphatase 73 Troponin I High Sens < 3.5 C-Reactive Protein 3.23 H Total Protein 7.1 Albumin 3.8 Urine Color Urine Appearance Urine pH Ur Specific [place] Urine Protein Urine Glucose (UA) Urine Ketones Urine Blood Urine Nitrite Ur Leukocyte Esterase Urine RBC Urine WBC Ur Squamous Epith Cells Urine Bacteria Urine Mucus Urine Test Urine Opiates Screen Ur Barbiturates Screen Ur Phencyclidine Scrn Ur Amphetamines Screen U Benzodiazepines Scrn Urine Cocaine Screen U Marijuana (THC) Screen COVID-19 (FREDO) COVID-19 Clin Com 08/14/20 08/14/20 08/14/20 20:12 20:12 20:13 WBC 7.8 RBC 3.74 L Hgb 9.3 L Hct 29.6 L D MCV 79.1 L MCH 24.9 L MCHC 31.4 RDW 15.6 Plt Count 262 D MPV 10.3 Immature Gran % (Auto) 0.1 Neut % (Auto) 45.6 Lymph % (Auto) 39.9 [place] % (Auto) 11.0 Eos % (Auto) 2.6 Baso % (Auto) 0.8 Lymph # (Auto) 3.1 [place] # (Auto) 0.9 Eos # (Auto) 0.2 Baso # (Auto) 0.1 Abs Immat Gran (auto) 0.01 Absolute Neuts (auto) 3.6 Absolute Nucleated RBC 0.000 Nucleated RBC % (auto) 0.0 ESR PT 12.6 INR 1.1 APTT 33.6 Sodium Potassium Chloride Carbon Dioxide Anion Gap BUN Creatinine Estim Creat Clear Calc Estimated GFR Random Glucose Lactic Acid 0.5 Calcium Total Bilirubin AST ALT Alkaline Phosphatase Troponin I High Sens C-Reactive Protein Total Protein Albumin Urine Color Urine Appearance Urine pH Ur Specific [place] Urine Protein Urine Glucose (UA) Urine Ketones Urine Blood Urine Nitrite Ur Leukocyte Esterase Urine RBC Urine WBC Ur Squamous Epith Cells Urine Bacteria Urine Mucus Urine Test Urine Opiates Screen Ur Barbiturates Screen Ur Phencyclidine Scrn Ur Amphetamines Screen U Benzodiazepines Scrn Urine Cocaine Screen U Marijuana (THC) Screen COVID-19 (FREDO) COVID-19 [employer] Com 08/14/20 08/14/20 08/14/20 20:13 20:13 22:22 WBC RBC Hgb Hct MCV MCH MCHC RDW Plt Count MPV Immature Gran % (Auto) Neut % (Auto) Lymph % (Auto) [place] % (Auto) Eos % (Auto) Baso % (Auto) Lymph # (Auto) [place] # (Auto) Eos # (Auto) Baso # (Auto) Abs Immat Gran (auto) Absolute Neuts (auto) Absolute Nucleated RBC Nucleated RBC % (auto) ESR 30 H PT INR APTT Sodium Potassium Chloride Carbon Dioxide Anion Gap BUN Creatinine Estim Creat Clear Calc Estimated GFR Random Glucose Lactic Acid Calcium Total Bilirubin AST ALT Alkaline Phosphatase Troponin I High Sens C-Reactive Protein Total Protein Albumin Urine Color YELLOW Urine Appearance CLEAR Urine pH 6.0 Ur Specific [place] >= 1.030 H Urine Protein TRACE Urine Glucose (UA) NEG Urine Ketones 5 Urine Blood 1+ H Urine Nitrite NEG Ur Leukocyte Esterase NEG Urine RBC 10-14 H Urine WBC 1-4 Ur Squamous Epith Cells 1+ Urine Bacteria 1+ Urine Mucus 2+ Urine Test Urine Opiates Screen Ur Barbiturates Screen Ur Phencyclidine Scrn Ur Amphetamines Screen U Benzodiazepines Scrn Urine Cocaine Screen U Marijuana (THC) Screen COVID-19 (FREDO) Negative COVID-19 [employer] See Note 08/14/20 08/14/20 22:22 22:22 WBC RBC Hgb Hct MCV MCH MCHC RDW Plt Count MPV Immature Gran % (Auto) Neut % (Auto) Lymph % (Auto) [place] % (Auto) Eos % (Auto) Baso % (Auto) Lymph # (Auto) [place] # (Auto) Eos # (Auto) Baso # (Auto) Abs Immat Gran (auto) Absolute Neuts (auto) Absolute Nucleated RBC Nucleated RBC % (auto) ESR PT INR APTT Sodium Potassium Chloride Carbon Dioxide Anion Gap BUN Creatinine Estim Creat Clear Calc Estimated GFR Random Glucose Lactic Acid Calcium Total Bilirubin AST ALT Alkaline Phosphatase Troponin I High Sens C-Reactive Protein Total Protein Albumin Urine Color Urine Appearance Urine pH Ur Specific [place] Urine Protein Urine Glucose (UA) Urine Ketones Urine Blood Urine Nitrite Ur Leukocyte Esterase Urine RBC Urine WBC Ur Squamous Epith Cells Urine Bacteria Urine Mucus Urine Test NEGATIVE Urine Opiates Screen POSITIVE H Ur Barbiturates Screen Not Detected Ur Phencyclidine Scrn Not Detected Ur Amphetamines Screen Not Detected U Benzodiazepines Scrn Not Detected Urine Cocaine Screen POSITIVE H U Marijuana (THC) Screen POSITIVE H COVID-19 (FREDO) COVID-19 Clin Com Imaging Radiology Impressions: ITS Impressions Extremity Ultrasound 08/14/20 00:04 IMPRESSION: No abscess/fluid collection. Question 2 x 5 x 5 mm foreign body in the superficial soft tissues of the left forearm. Correlation with x-ray recommended. Extremity Ultrasound 08/14/20 10:29 IMPRESSION: Some mild subcutaneous edema is present but no abscess is seen. Chest X-Ray 08/14/20 19:33 IMPRESSION: No evidence of acute disease. Ankle X-Ray 08/14/20 19:37 Impression: No acute fracture or dislocation. Old healed deformity to the distal fifth metatarsal noted. Foot X-Ray 08/14/20 19:37 Impression: No acute fracture or dislocation. Old healed deformity to the distal fifth metatarsal noted. Chest CTA 08/14/20 21:10 IMPRESSION: No evidence of pulmonary emboli Possible hepatosplenomegaly VTE: negative Abdomen/Pelvis CT 08/14/20 22:07 IMPRESSION: A cause for the patient's left-sided lower abdominal pain has not been found. Incidental note made of borderline hepatomegaly. Mental Status Exam Mental Status Exam Patient Appearance: Appropriate Patient Orientation: Person, Place, Time and Situation Level of Consciousness: Awake and Alert Patient Behavior: Guarded, Anxious and Uncooperative Mood Description: Angry Affect Description: Angry Ability to Follow Directions: Good Speech Pattern: Clear Hallucinations: None Delusions: Not Present Thought Process: Goal Oriented Thought Content: positive for Intact Judgement: Fair Medications Medications Current Medications Generic Name Dose Route Start Last Admin Trade Name Freq PRN Reason Stop Dose Admin Acetaminophen 650 mg 08/14/20 21:38 08/15/20 10:33 Acetaminophen 325 Mg Tablet PO 650 mg Q6H PRN Administration Pain, Mild (Pain Scale 1-3) Clonidine HCl 0.1 mg 08/14/20 21:40 08/15/20 09:16 Clonidine Hcl 0.1 Mg Tablet PO 0.1 mg TID PRN Administration Withdrawal Symptoms Protocol Gabapentin 300 mg 08/15/20 09:00 08/15/20 09:15 Gabapentin 300 Mg Capsule PO 300 mg TID JAILENE Administration Hydroxyzine HCl 25 mg 08/14/20 21:40 08/15/20 09:16 Hydroxyzine Hcl 25 Mg Tablet PO 25 mg QID PRN Administration Anxiety Sodium Chloride 1,000 mls @ 100 mls/hr 08/14/20 21:45 08/15/20 09:42 Ns IVCONT Infused .Q10H JAILENE Infusion Vancomycin HCl 750 mg/ Sodium 265 mls @ 265 mls/hr 08/15/20 06:00 08/15/20 08:56 Chloride IV Infused Q8H JAILENE Infusion Piperacillin Sod/Tazobactam 50 mls @ 100 mls/hr 08/15/20 04:00 08/15/20 11:30 Sod 3.375 gm/ Sodium Chloride IV Infused Q6H JAILENE Infusion Nicotine Polacrilex 2 mg 08/15/20 02:01 08/15/20 09:16 Nicotine Polacrilex 2 Mg Lozenge BUCCAL 2 mg Q2H PRN Administration Nicotine Cravings Ondansetron HCl 4 mg 08/14/20 23:30 08/15/20 10:39 Ondansetron Hcl 4 Mg/2 Ml Vial IVPUSH 4 mg Q8H PRN Administration Nausea and Vomiting Oxycodone HCl 10 mg 08/15/20 02:54 08/15/20 10:32 Oxycodone Hcl Immed Release 5 Mg Tablet PO 10 mg Q6H PRN Administration Pain, Moderate (Pain Scale 4-6 Pharmacy Consult 1 each 08/14/20 21:38 Consult Rx Vancomycin Dosing MISCELLANE DAILY PRN Consult order Senna 17.2 mg 08/14/20 21:38 Sennosides 8.6 Mg Tablet PO BEDTIME PRN Constipation Sodium Chloride 3 ml 08/15/20 00:00 08/15/20 08:55 0.9 % Sodium Chloride Flush 3 Ml Syringe IVFLUSH Not Given QSHIFT [facility] Allergies Allergies Allergy/AdvReac Type Severity Reaction Status Date / Time buprenorphine [From SUBOXONE] Allergy Severe ANAPHAYLAXI Verified 08/15/20 04:12 S naloxone [From SUBOXONE] Allergy Severe ANAPHAYLAXI Verified 08/15/20 04:12 S sulfamethoxazole Allergy Intermediate RASH Verified 08/15/20 04:12 [From BACTRIM] trimethoprim [From BACTRIM] Allergy Intermediate RASH Verified 08/15/20 04:12 lamotrigine [From LAMICTAL] Allergy Unknown RASH Verified 08/15/20 04:12 prednisone [PREDNISONE] Allergy Unknown UNKNOWN Verified 08/15/20 04:12 quetiapine [From SEROQUEL] Allergy Unknown UNKNOWN Verified 08/15/20 04:12 trazodone [TRAZODONE] Allergy Unknown UNKNOWN Verified 08/15/20 04:12 Assessment & Plan Assessment & Plan (1) Opioid use disorder: Status: Acute Code(s): F11.99 - Opioid use, unspecified with unspecified opioid-induced disorder Recommendations: * 75mg methadone ordered and given. Pt seen by RN in follow up and patient still upset feeling her withdrawal sx are not being well managed. * Discussed with hospitalist, additional 15mg being ordered and given now (total of 90mg) * If patient tolerates 90mg this evening without oversedation, in AM patient may receive full outpatient dose, which is 103mg Greater than 50% of the session was spent on counseling and/or coordination of care PMFSH Past Medical History Medical History Alcohol abuse Cellulitis Heroin abuse No known health problems Family History Family History Other Family history non-contributory Social History Social History Household Members: Friend(s) and Other Alcohol intake: unknown Smoking Status: Current every day smoker Tobacco Type: Cigarette Substance Use Type: Crack/Cocaine, Heroin, IV Drugs and Opiates
[2020-08-15 15:03] VITALS: BP 101/60; PULSE 69
[2020-08-15 15:40] VITALS: BP 130/87; PULSE 62; RESP 17; TEMP 36.9; O2SAT 100
--- NOTE | 2020-08-15 16:23 | MHC.RECOVRN ---
T/w met with pt to f/u after receiving 75 mg methadone dose. Pt upset that full dose has not been ordered. T/w explained to pt that since her dose had been missed for 3 days it was safest to titrate. Pt unhappy with this explanation. Pt reports withdrawal symptoms are not controlled for alcohol or opiate use. T/w spoke with pts RN who would be in touch with hospitalist regarding management of pts alcohol withdrawal. T/w assessed pt to have CIWA score 19 and COWS score 10. Case was also discussed with Aida Romero APRN. Will continue to follow.
--- NOTE | 2020-08-15 16:40 | HO.PM.IMPN ---
Subjective Subjective Date of Service: 08/15/20 Interval History: see f/u for cellulitis of arm in setting of IVDA, she has multiple complaints--that she has pain, withdrawing, hallucinating and want test for endocarditis, that she is withdrawaing from alcohol and want phenobarbital Review of Systems no fever pain in arm Physical Exam Vital Signs: Vital Signs: Last Vital Signs Temp 98.5 F 08/15/20 15:40 Pulse 62 08/15/20 15:40 Resp 17 08/15/20 15:40 BP 130/87 08/15/20 15:40 Pulse Ox 100 08/15/20 15:40 Body Mass Index 23.8 General: AO X 3, no acute distress GI: +BS, NT, no distention Skin: extensive track ureña on arms, no discernible focal erythema Neuro: motor grossly intact Psych: appropriate affect Objective Data Current Medications Generic Name Dose Route Start Last Admin Trade Name Freq PRN Reason Stop Dose Admin Acetaminophen 650 mg 08/14/20 21:38 08/15/20 10:33 Acetaminophen 325 Mg Tablet PO 650 mg Q6H PRN Administration Pain, Mild (Pain Scale 1-3) Clonidine HCl 0.1 mg 08/14/20 21:40 08/15/20 15:03 Clonidine Hcl 0.1 Mg Tablet PO 0.1 mg TID PRN Administration Withdrawal Symptoms Protocol Gabapentin 300 mg 08/15/20 09:00 08/15/20 15:01 Gabapentin 300 Mg Capsule PO 300 mg TID JAILENE Administration Hydroxyzine HCl 25 mg 08/14/20 21:40 08/15/20 15:02 Hydroxyzine Hcl 25 Mg Tablet PO 25 mg QID PRN Administration Anxiety Sodium Chloride 1,000 mls @ 100 mls/hr 08/14/20 21:45 08/15/20 09:42 Ns IVCONT Infused .Q10H JAILNEE Infusion Vancomycin HCl 750 mg/ Sodium 265 mls @ 265 mls/hr 08/15/20 06:00 08/15/20 16:35 Chloride IV Infused Q8H JAILENE Infusion Piperacillin Sod/Tazobactam 50 mls @ 100 mls/hr 08/15/20 04:00 08/15/20 11:30 Sod 3.375 gm/ Sodium Chloride IV Infused Q6H JAILENE Infusion Nicotine Polacrilex 2 mg 08/15/20 02:01 08/15/20 15:01 Nicotine Polacrilex 2 Mg Lozenge BUCCAL 2 mg Q2H PRN Administration Nicotine Cravings Ondansetron HCl 4 mg 08/14/20 23:30 08/15/20 10:39 Ondansetron Hcl 4 Mg/2 Ml Vial IVPUSH 4 mg Q8H PRN Administration Nausea and Vomiting Oxycodone HCl 10 mg 08/15/20 02:54 08/15/20 10:32 Oxycodone Hcl Immed Release 5 Mg Tablet PO 10 mg Q6H PRN Administration Pain, Moderate (Pain Scale 4-6 Pharmacy Consult 1 each 08/14/20 21:38 Consult Rx Vancomycin Dosing MISCELLANE DAILY PRN Consult order Senna 17.2 mg 08/14/20 21:38 Sennosides 8.6 Mg Tablet PO BEDTIME PRN Constipation Sodium Chloride 3 ml 08/15/20 00:00 08/15/20 16:34 0.9 % Sodium Chloride Flush 3 Ml Syringe IVFLUSH Not Given QSHIFT JAILENE Labs CBC & Chem 7: 08/14/20 20:13 08/14/20 20:12 Assessment and Plan (1) Cellulitis of arm: Status: Acute Assessment and Plan: 29-year-old female with a past medical history of anxiety, depression, substance abuse, tobacco dependence presented to the hospital with a chief complaint of bilateral forearm pain redness and swelling. Noted to have cellulitis. Cellulitis of arm due to intravenous drug use, no abscess, seems better. On vanco, change to PO Doxy by tomorrow There is no abscess on seen US, yet possible foreing body in left arm--xray to see it better cultures are pending. Chest pain: Atypical in nature. CT chest unremarkable. echo pending , there are no other other stigmata of endocardititis Right ankle pain: Old healed deformity to the distal fifth metatarsal noted. Right upper quadrant abdominal pain: CT, HIDA, no acute fidning. Opiate dependence: Restarted on Methadone, see adiction note Tobacco dependence: Offered nicotine gums. Counseled on smoking cessation. Suicidal ideation: Patient was section 12 in the ER. Will continue on 1:1 observation. BHN eval Microscopic hematuria: DVT prophylaxis: Subcu heparin Code status: Full code
[2020-08-15] MEDS: 0.9 % Sodium Chloride 1,000 ML 100 ML IVCONT (16:59)
--- NOTE | 2020-08-15 21:58 | PC.NURSE ---
Addendum entered by Shasha Rand RN 08/16/20 05:11: added clonazepam for pt agreeable to take, pt apologetic and tearful, requesting more meds, zofran, clonodine, and more ativan and clonazpam. Pt requesting this Rn ask MD for TID or q4h ativan pt stating if i get a big enough dose ill probably go to sleep. made aware, stated no more benzos but did put order for melatonin. pt resting in bed with eyes closed. sitter remains at bedside. Original Note: Pt awoken by lab very upset that they were in my face as soon as i woke up pt stating shes sweating, sick and needs to shower explained to patient that with an IV in her neck and tele pack on she cannot shower at this time. Pt very upset but assisted to bathroom went in and shut the door, aide into the bathroom to be with pt due to 1:1 sitter, pt yelling told aide i will beat your ass you guys are not giving me dignity security called to bathroom pt continues to refuse to let anyone in bathroom. explain pt due to past SI statement she must have someone with her at all times, because this unit is not ligature free. ( note today say pt section in ED and to remain 1:1, no section on chart at this time) made aware pt requesting 2mg IV ativan q4hrs, made aware, new order for 1mg PO once, Pt states that will not help now requesting PO Clonazepam 1 mg. made aware, no response at this time. pt accusing this nurse of not requesting medication from . Pt also stating that her home medications are wrong and staff has not been giving her the correct dose of medication the whole time shes been here. pt tearful. nursing tile setter supervisor at bedside to speak with pt. pt more agreeable to PO ativan at this time.
--- NOTE | 2020-08-15 22:17 | MHC.CARE ---
CARE team contacted by nursing segmental paving supervisor and hospitalist re: pt who was admitted to medical floor from ED. Pt made suicidal statements during triage and has been advocating that she be evaluated and have her mental health issues addressed. Per request of hospitalist, a Sect 12a was completed and placed in pt's chart.
[2020-08-15] MEDS: clonazePAM 1 MG TABLET PO (22:31)
[2020-08-15] MEDS: LORazepam 1 MG TABLET PO (22:31)
[2020-08-15 23:22] VITALS: BP 141/65; PULSE 60; RESP 18; TEMP 36.3; O2SAT 100
[2020-08-16] VITALS (10 sets, daily range): BP systolic 108–121; BP diastolic 47–84; PULSE 61–73; RESP 16–18; TEMP 35.7–36.7; O2SAT 99–100
[2020-08-16 00:15] LABS: Anion Gap 13 (12-20); Blood Urea Nitrogen 8 mg/dL (9-16); Calcium 8.1 mg/dL (8.4-10.2); Carbon Dioxide 21 mmol/L (22-29); Chloride 110 mmol/L (96-108); Creatinine Clr Calc Pharmacy 105.1; Estimated Glomerular Filt Rate > 60; Glucose Random 84 mg/dL (60-115); Potassium 4.9 mmol/L (3.3-5.1); Sodium 139 mmol/L (135-145)
[2020-08-16] MEDS: cloNIDine HCL 0.1 MG TABLET PO ×4 (00:16→18:54)
[2020-08-16 00:23] LABS: Vancomycin Trough 9.6 mcg/mL (10.0-20.0)
[2020-08-16] MEDS: vancomycin HCL 750 MG in 0.9 % Sodium Chloride 250 ML 265 MG IV ×2 (00:45→06:01)
[2020-08-16] MEDS: 0.9 % Sodium Chloride 1,000 ML 100 ML IVCONT (05:21)
[2020-08-16] MEDS: Piperacillin Sodium/Tazobactam 3.375 GM in 0.9 % Sodium Chloride 50 ML IV ×2 (05:22→08:29)
[2020-08-16] MEDS: oxyCODONE HCl Immed Release 5 MG TABLET 10 MG PO ×3 (05:53→18:54)
[2020-08-16] MEDS: hydrOXYzine HCL 25 MG TABLET PO ×2 (05:53→18:33)
[2020-08-16 09:14] LABS: HIV AB/AG Nonreactive (Nonreactive); HIV Num 1 0.08 S/CO (0.00-0.99)
[2020-08-16 09:50] LABS: Syphilis Screen Nonreactive (Nonreactive)
--- NOTE | 2020-08-16 09:50 | PM.CNGS ---
History of Present Illness Consult details Consult date: 08/16/20 Narrative: 29F with a long hx of polysubsatnce abuse, depression, admitted for cellulitis of both forearm. She does have a history of oozing multiple areas of the arms or access for injections. He apparently had some redness on both forearms just past the antecubital areaover the past week treated with oral antibiotics. This had not responded to treatment so she was admitted for IV antibiotics. X-rays had shown a needle on the right wrist so I was consulted. Review of Systems Constitutional: Constitutional: Denies chills and Denies fever(s) Cardiovascular: Cardiovascular: Denies chest pain, Denies dyspnea and Denies dyspnea on exertion Respiratory: Respiratory: Denies cough, Denies dyspnea and Denies dyspnea on exertion Gastrointestinal: Gastrointestinal: Denies hematochezia and Denies change in bowel habits Genitourinary: Genitourinary: Denies hematuria and Reports difficulty voiding Musculoskeletal: Musculoskeletal: Denies back pain and Denies limited range of motion Neurologic: Denies focal weakness and Denies convulsions Psychiatric: Psychiatric: Denies depression and Denies mood swings [facility] Past Medical History Medical History (Updated 08/16/20 @ 09:54 by Sarath Hinson MD) Alcohol abuse Cellulitis Foreign body (FB) in soft tissue Heroin abuse No known health problems Family History Family History Other Family history non-contributory Social History Social History Household Members: Friend(s) and Other Alcohol intake: unknown Smoking Status: Current every day smoker Tobacco Type: Cigarette Substance Use Type: Crack/Cocaine, Heroin, IV Drugs and Opiates service: No Current occupational status: disabled Meds Allergies Allergy/AdvReac Type Severity Reaction Status Date / Time buprenorphine [From SUBOXONE] Allergy Severe ANAPHAYLAXI Verified 08/15/20 04:12 S naloxone [From SUBOXONE] Allergy Severe ANAPHAYLAXI Verified 08/15/20 04:12 S sulfamethoxazole Allergy Intermediate RASH Verified 08/15/20 04:12 [From BACTRIM] trimethoprim [From BACTRIM] Allergy Intermediate RASH Verified 08/15/20 04:12 lamotrigine [From LAMICTAL] Allergy Unknown RASH Verified 08/15/20 04:12 prednisone [PREDNISONE] Allergy Unknown UNKNOWN Verified 08/15/20 04:12 quetiapine [From SEROQUEL] Allergy Unknown UNKNOWN Verified 08/15/20 04:12 trazodone [TRAZODONE] Allergy Unknown UNKNOWN Verified 08/15/20 04:12 Active Medications: Current Medications Generic Name Dose Route Start Last Admin Trade Name Freq PRN Reason Stop Dose Admin Acetaminophen 650 mg 08/14/20 21:38 08/15/20 22:31 Acetaminophen 325 Mg Tablet PO 650 mg Q6H PRN Administration Pain, Mild (Pain Scale 1-3) Clonidine HCl 0.1 mg 08/14/20 21:40 08/16/20 05:53 Clonidine Hcl 0.1 Mg Tablet PO 0.1 mg TID PRN Administration Withdrawal Symptoms Protocol Gabapentin 300 mg 08/15/20 09:00 08/16/20 08:36 Gabapentin 300 Mg Capsule PO Not Given TID JAILENE Hydroxyzine HCl 25 mg 08/14/20 21:40 08/16/20 05:53 Hydroxyzine Hcl 25 Mg Tablet PO 25 mg QID PRN Administration Anxiety Sodium Chloride 1,000 mls @ 100 mls/hr 08/14/20 21:45 08/16/20 05:21 Ns IVCONT 100 mls/hr .Q10H JAILENE Administration Vancomycin HCl 750 mg/ Sodium 265 mls @ 265 mls/hr 08/15/20 06:00 08/16/20 07:15 Chloride IV Infused Q8H JAILENE Infusion Piperacillin Sod/Tazobactam 50 mls @ 100 mls/hr 08/15/20 04:00 08/16/20 09:36 Sod 3.375 gm/ Sodium Chloride IV Infused Q6H JAILENE Infusion Methadone HCl 100 mg 08/16/20 09:00 Methadone Hcl 1 Mg/0.1 Ml Oral.Conc PO DAILY JAILENE Nicotine Polacrilex 2 mg 08/15/20 02:01 08/15/20 22:31 Nicotine Polacrilex 2 Mg Lozenge BUCCAL 2 mg Q2H PRN Administration Nicotine Cravings Ondansetron HCl 4 mg 08/14/20 23:30 08/15/20 23:56 Ondansetron Hcl 4 Mg/2 Ml Vial IVPUSH 4 mg Q8H PRN Administration Nausea and Vomiting Oxycodone HCl 10 mg 08/15/20 02:54 08/16/20 05:53 Oxycodone Hcl Immed Release 5 Mg Tablet PO 10 mg Q6H PRN Administration Pain, Moderate (Pain Scale 4-6 Pharmacy Consult 1 each 08/14/20 21:38 Consult Rx Vancomycin Dosing MISCELLANE DAILY PRN Consult order Senna 17.2 mg 08/14/20 21:38 Sennosides 8.6 Mg Tablet PO BEDTIME PRN Constipation Sodium Chloride 3 ml 08/15/20 00:00 08/16/20 08:32 0.9 % Sodium Chloride Flush 3 Ml Syringe IVFLUSH Not Given QSHIFT [facility] Home Medications Medication Instructions Recorded Confirmed Last Taken Type gabapentin 300 mg PO TID 02/06/20 08/14/20 02/13/20 09:00 History cephalexin 1 cap PO QID 08/14/20 08/14/20 Unknown History clonidine HCl 0.1 mg PO TID PRN 08/14/20 08/14/20 Unknown History hydroxyzine pamoate 25 mg PO QID PRN 08/14/20 08/14/20 Unknown History methadone [Methadone Intensol] 103 mg PO DAILY 08/14/20 08/15/20 Unknown History Physical Exam Vital Signs: Vital Signs: Last Vital Signs Temp 97.8 F 08/16/20 07:55 Pulse 66 08/16/20 07:55 Resp 18 08/16/20 07:55 BP 121/84 08/16/20 07:55 Pulse Ox 100 08/16/20 07:55 Body Mass Index 23.8 Const: Other: Appears quite anxious General: comfortable and no acute distress Orientation/consciousness: patient oriented x3 Neck: Neck: Yes no lymphadenopathy Resp: Auscultation: clear to auscultation bilaterally Cardio: Rhythm: regular rhythm GI: Palpation (GI): Soft to palpation, nontender and no guarding Neuro: General: patient oriented x3 Extrem: Other: Some induration on the anterior aspect the forearm the mid part on both left and right with some tenderness, multiple needle tracks all over both arms, no fluctuance, a particular tenderness or induration on the area of the retained needle on the radial aspect of right wrist. Full range of motion noted Results Labs Result diagrams: 08/16/20 13:05 08/16/20 13:05 Labs: Abnormal lab results 08/15/20 08/15/20 Range/Units 23:19 23:19 Chloride 110 H (96-108) mmol/L Carbon Dioxide 21 L (22-29) mmol/L BUN 8 L (9-16) mg/dL Calcium 8.1 L D (8.4-10.2) mg/dL Vancomycin Trough 9.6 L (10.0-20.0) mcg/mL BMP 08/15/20 23:19 Sodium 139 Potassium 4.9 D Chloride 110 H Carbon Dioxide 21 L BUN 8 L Creatinine 0.63 Calcium 8.1 L D Urine 08/14/20 08/14/20 Range/Units 22:22 22:22 Urine Color YELLOW Urine Appearance CLEAR Urine pH 6.0 (5.0-8.0) Ur Specific [place] >= 1.030 H (1.005-1.025) Urine Protein TRACE (NEG-TRACE) MG/DL Urine Glucose (UA) NEG (NEG) MG/DL Urine Test NEGATIVE (NEGATIVE) All other labs normal. Imaging Additional studies: X-ray showed both forearms reviewed, reports reviewed as Assessment and Plan (1) Foreign body (FB) in soft tissue: Status: Acute There is note of a needle fragment on the wrist at the radial aspect. This areas currently not indurated without any cellulitis. The area of cellulitis that she was admitted for was actually more of the proximal forearm on both sides. I do not feel this there is any urgent need to remove this foreign body at this time. She is uncertain as to when exactly this had been in place as she has a long history of drug abuse. She is to continue with antibiotics for her cellulitis for the forearm on both sides. I will follow along while she is in the hospital.
[2020-08-16] MEDS: Acetaminophen 325 MG TABLET 650 MG PO (10:00)
[2020-08-16] MEDS: Gabapentin 300 MG CAPSULE PO ×3 (10:01→22:32)
--- NOTE | 2020-08-16 10:07 | HO.PM.IMPN ---
Subjective Subjective Date of Service: 08/16/20 <Vandana Pozo NP - Last Filed: 08/16/20 15:09> 08/16/20 <Nicolas Hill MD - Last Filed: 08/16/20 17:13> Interval History: Follow up cellulitis of arms in setting of IVDA, she has multiple complaints of pain, withdrawing, hallucinating. Feels tired today. <Vandana Pozo NP - Last Filed: 08/16/20 15:09> Physical Exam Vital Signs: Vital Signs: Last Vital Signs Temp 97.8 F 08/16/20 07:55 Pulse 66 08/16/20 07:55 Resp 18 08/16/20 07:55 BP 121/84 08/16/20 07:55 Pulse Ox 100 08/16/20 07:55 Body Mass Index 23.8 <Vandana Pozo NP - Last Filed: 08/16/20 15:09> Appearing in no acute distress lung sounds are clear to auscultation heart regular rate rhythm, clear S1, S2 positive bowel sounds, abdomen is soft, nontender neuro patient is alert x3, no focal deficits bilateral forearms with erythema and edema, multiple scabbed areas <Vandana Pozo NP - Last Filed: 08/16/20 15:09> Objective Data Current Medications Generic Name Dose Route Start Last Admin Trade Name Eladioq PRN Reason Stop Dose Admin Acetaminophen 650 mg 08/14/20 21:38 08/16/20 10:00 Acetaminophen 325 Mg Tablet PO 650 mg Q6H PRN Administration Pain, Mild (Pain Scale 1-3) Clonidine HCl 0.1 mg 08/14/20 21:40 08/16/20 05:53 Clonidine Hcl 0.1 Mg Tablet PO 0.1 mg TID PRN Administration Withdrawal Symptoms Protocol Gabapentin 300 mg 08/15/20 09:00 08/16/20 10:01 Gabapentin 300 Mg Capsule PO 300 mg TID JAILENE Administration Hydroxyzine HCl 25 mg 08/14/20 21:40 08/16/20 05:53 Hydroxyzine Hcl 25 Mg Tablet PO 25 mg QID PRN Administration Anxiety Sodium Chloride 1,000 mls @ 100 mls/hr 08/14/20 21:45 08/16/20 05:21 Ns IVCONT 100 mls/hr .Q10H JAILENE Administration Vancomycin HCl 750 mg/ Sodium 265 mls @ 265 mls/hr 08/15/20 06:00 08/16/20 07:15 Chloride IV Infused Q8H JAILENE Infusion Piperacillin Sod/Tazobactam 50 mls @ 100 mls/hr 08/15/20 04:00 08/16/20 09:36 Sod 3.375 gm/ Sodium Chloride IV Infused Q6H JAILENE Infusion Methadone HCl 100 mg 08/16/20 09:00 08/16/20 09:50 Methadone Hcl 1 Mg/0.1 Ml Oral.Conc PO 100 mg DAILY JAILENE Administration Nicotine Polacrilex 2 mg 08/15/20 02:01 08/16/20 09:51 Nicotine Polacrilex 2 Mg Lozenge BUCCAL 2 mg Q2H PRN Administration Nicotine Cravings Ondansetron HCl 4 mg 08/14/20 23:30 08/15/20 23:56 Ondansetron Hcl 4 Mg/2 Ml Vial IVPUSH 4 mg Q8H PRN Administration Nausea and Vomiting Oxycodone HCl 10 mg 08/15/20 02:54 08/16/20 05:53 Oxycodone Hcl Immed Release 5 Mg Tablet PO 10 mg Q6H PRN Administration Pain, Moderate (Pain Scale 4-6 Pharmacy Consult 1 each 08/14/20 21:38 Consult Rx Vancomycin Dosing MISCELLANE DAILY PRN Consult order Senna 17.2 mg 08/14/20 21:38 Sennosides 8.6 Mg Tablet PO BEDTIME PRN Constipation Sodium Chloride 3 ml 08/15/20 00:00 08/16/20 08:32 0.9 % Sodium Chloride Flush 3 Ml Syringe IVFLUSH Not Given QSHIFT [facility] <Vandana Pozo NP - Last Filed: 08/16/20 15:09> Labs CBC & Chem 7: : 08/16/20 13:05 08/16/20 13:05 <Vandana Pozo NP - Last Filed: 08/16/20 15:09> Microbiology Microbiology Results: Microbiology 08/14/20 20:17 Blood - Venous Blood Culture - Preliminary No growth after 24 hours. 08/14/20 20:11 Blood - Venous Blood Culture - Preliminary No growth after 24 hours. <Vandana Pozo NP - Last Filed: 08/16/20 15:09> Assessment and Plan (1) Cellulitis of arm: Status: Acute <Vandana Pozo NP - Last Filed: 08/16/20 15:09> Assessment and Plan: 29-year-old female with a past medical history of anxiety, depression, substance abuse, tobacco dependence presented to the hospital with a chief complaint of bilateral forearm pain redness and swelling. Noted to have cellulitis. Cellulitis of arm due to intravenous drug use, no abscess, seems better. Start Doxycycline po for 7 days Negative cultures after 24 hours Right arm needle fragments. Located at the radial aspect the right wrist. Seen and examined by General surgery. Not contributing to cellulitis. Recommendation for outpatient removal of foreign body. Microcytic anemia. No signs of bleeding. Trend Chest pain. Resolved. Atypical in nature. CT chest unremarkable. Low suspicion for endocarditis. Right ankle pain. Old healed deformity to the distal fifth metatarsal noted. no acute medical intervention at this time. Abdominal pain. Abdominal CT with no acute abnormalities. No acute medical intervention at this time. Opiate dependence Restarted on Methadone at full-dose as per Aida Romero Negative HIV Tobacco dependence NRT Suicidal ideation. Patient was section 12 in the ER. BHN/CARE team evaluation DISPO: CARE team evaluation Attending : Dr. Hill <Vandana Pozo NP - Last Filed: 08/16/20 15:09> Attending Attestation: Patient seen and examined independently and I was present during rahman portion of E/M service. Agree with Brianna Pozo NP's history, physical, assessment, and plan. Seen and examined this afternoone with patients RN bedside along with sitter. Pt willing to go to . Exam Bilateral UE with track ureña; do not appreciate significant erythema this time A/P Medically cleared -- d/w ID re: antibiotics -- change to oral doxycycline for 7 more days. D/w Gen Surg re: foreign body in the forearm(R) -- no urgent need for removal, will follow the patient during hospitalization. Restarted on her methadone per Addiction medicine input Transfer to once bed available. <Nicolas Hill MD - Last Filed: 08/16/20 17:13>
--- NOTE | 2020-08-16 11:28 | MHC.CM.PN ---
This insurance writer meet with pt for initial CM assessment. A&O, able to answer questions appropriately. 1:1 sitter at bedside for active SI. Pt lives in apartment where she does not feel safe. She reports people in the home actively use drugs. Plan for full CARE Team eval for IPOC admission to when medically stable. Awaiting ID consult and med clearance. CM will continue to follow.
--- NOTE | 2020-08-16 11:52 | MHC.CARE ---
CARE Team met with patient in room 361; she had expressed suicidal ideation and was reported to be dysregulated yesterday. She was alert and oriented, calm, easily engaged?1:1 sitter stepped out to provide privacy. Patient explained that she was not suicidal in this moment but believes that she is in need of an inpatient hospitalization due to her significant instability. Said she has never had a psychiatric admission before, patient considered that if she is detoxed that may be a stepping stone to [facility] or another program. Currently patient lives in house run by the [facility] program which is sober living and recovery support, stated that she receives no help there, and has not paid her rent in several months due to living conditions. Reported having no family, friends or outpatient services. When medically stable, BHN or CARE Team can evaluate patient for possible admission to . Providers updated about plan
[2020-08-16] MEDS: Nicotine Polacrilex 2 MG GUM BUCCAL ×3 (12:51→22:33)
--- NOTE | 2020-08-16 13:17 | MHC.CM.PN ---
Pt medically cleared, CARE Team order in for IPLOC, message to CARE Team to follow-up, they are aware of consult.
[2020-08-16 13:19] LABS: Hematocrit 33.5 % (37-47); Hemoglobin 10.1 g/dl (12.0-16.0); Mean Corpuscular HGB Conc 30.1 g/dl (31.0-35.0); Mean Corpuscular Hemoglobin 24.9 pg (27.0-33.0); Mean Corpuscular Volume 82.5 fL (80-98); Mean Platelet Volume 10.9 fL (9.4-12.3); Platelet Count 274 X10*3/uL (160-400); Red Blood Count 4.06 X10*6/uL (4.20-5.50); Red Cell Distribution Width 16.1 % (11.0-16.0); White Blood Count 4.9 X10*3/uL (4.8-10.8)
[2020-08-16 13:49] LABS: Anion Gap 9 (12-20); Blood Urea Nitrogen 6 mg/dL (9-16); Calcium 8.8 mg/dL (8.4-10.2); Carbon Dioxide 24 mmol/L (22-29); Chloride 111 mmol/L (96-108); Creatinine Clr Calc Pharmacy 97.4; Estimated Glomerular Filt Rate > 60; Glucose Random 81 mg/dL (60-115); Potassium 5.1 mmol/L (3.3-5.1); Sodium 139 mmol/L (135-145)
--- NOTE | 2020-08-16 15:01 | P.DS_ITS ---
DS: Providers Provider Date of Service: 08/19/20 Date of admission: 08/14/20 21:38 Primary care physician: Lacho Jain MD Consults: 08/14/20 21:38 Consult to Infectious Diseases Routine Consulting Provider: Linda Story Reason for consultation: hx IVDA; forearm cellulitis; chest pain 08/14/20 23:25 Consult to Orthopedics Routine Consulting Provider: Maria Woods Reason for consultation: right ankle pain/sprain 08/14/20 23:26 Consult to Psychiatry Routine Consulting Provider: Psych Covering Reason for consultation: SI; Opiate Withdrawal 08/16/20 07:34 Consult to General Surgery Routine Consulting Provider: Sarath Hinson Reason for consultation: needle fragments in both forearms Has provider been notified: No 08/16/20 13:04 Consult to Care Team Stat Comment: Reason for consultation: Pt medically cleared, needs eval for IPOC placement to M5 DS: Diagnosis Discharge Diagnosis (1) Cellulitis of arm: Status: Acute DS: Medications Discharge Medications Home Medications: Home Medications Medication Instructions Recorded Confirmed gabapentin 300 mg PO TID 02/06/20 08/14/20 cephalexin 1 cap PO QID 08/14/20 08/14/20 clonidine HCl 0.1 mg PO TID PRN 08/14/20 08/14/20 hydroxyzine pamoate 25 mg PO QID PRN 08/14/20 08/14/20 methadone [Methadone Intensol] 103 mg PO DAILY 08/14/20 08/15/20 Previous Rx's Medication Instructions Recorded doxycycline monohydrate 100 mg PO BID #14 cap 06/01/20 DS: Summary Hospital Course Hospital Course: HP as per admitting provider 29-year-old female with a past medical history of anxiety, depression, opiate dependence, polysubstance abuse, tobacco dependence presented to the hospital with a chief complaint of bilateral forearm pain redness and swelling. Patient mentions that she has intermittent patches of pain redness swelling on the bilateral forearms for the past 1 month and has seen a PCP and was started on Keflex and doxycycline as outpatient for about 1 and half week ago; but her symptoms have not improved and she noted to have increased sweating and chills and decided to come to the ER for further evaluation. Patient also complains of chest pain; sharp in nature, worsens with deep inspiration. No associated lightheadedness dizziness ; Patient also complains of abdominal discomfort more so on the right upper quadrant associated with nausea and vomiting intermittent nature. Patient did complain of urinary frequency over the past couple days. Patient mentioned that she had pain in her right ankle she thinks she probably had a fracture. ER course: For ER team patient noted associated tinnitus on the bilateral forearms. Given IV vancomyc in. Also ordered a CT chest and CT abdomen-pending. Analysis showed RBC but negative for WBC. ER team mentioned that patient raised the concerns of harming herself-subsequently placed stent was placed on suicidal precautions, 1 on 1 observation, and Section 12. Cellulitis. Treated with vancomycin and Zosyn. Cultures after 24 hours negative. Will continue with oral doxycycline for 7 days as outpatient. Foreign body material. Needle fragment to right wrist area. Seen and evaluated by General surgery. Not felt to be an emergent procedure and not contributing to cellulitis. Patient is to follow up with the general surgeon as an outpatient for removal. Opiate dependence. On full-dose methadone that she has been on outpatient. She was seen and examined by Aida Romero. She should continue methadone treatment. Suicide ideation/ mental health disorder. Care team consultation. Patient to be transferred to for psychiatric care. Attending: Dr. Hill. Time Spent with Patient Time attestation: Total time spent providing and/or coordinating discharge services: Discharge coordination time: Greater than 30 minutes Physical Exam Vital Signs: Vital Signs: Last Vital Signs Temp 98 F 08/16/20 11:32 Pulse 62 08/16/20 12:51 Resp 18 08/16/20 11:32 BP 114/57 L 08/16/20 12:51 Pulse Ox 99 08/16/20 11:32 Body Mass Index 23.8 Appearing in no acute distress head is normocephalic atraumatic eyes pupils are PERRLA sclera is anicteric mouth throat mucous membranes are intact and moist neck is supple no lymphadenopathy, no JVD noted lung sounds are clear to auscultation heart regular rate rhythm, clear S1, S2 positive bowel sounds, abdomen is soft, nontender neuro patient is alert x3, no focal deficits Mild redness to forearms with multiple scabbed areas DS: Data Data Completed and Pending Labs on day of discharge: Laboratory Results - last 24 hr 04/13/21 04/13/21 04/13/21 23:19 23:19 23:19 WBC RBC Hgb Hct MCV MCH MCHC RDW Plt Count MPV Absolute Nucleated RBC Nucleated RBC % (auto) Sodium 139 Potassium 4.9 D Chloride 110 H Carbon Dioxide 21 L Anion Gap 13 BUN 8 L Creatinine 0.63 Estim Creat Clear Calc 105.1 Estimated GFR > 60 Random Glucose 84 Calcium 8.1 L D Vancomycin Trough 9.6 L T.pallidum Ab (EIA) HIV 1&2 Ab/P24 Ag 4thGn Nonreactive 08/15/20 08/16/20 08/16/20 23:19 13:05 13:05 WBC 4.9 RBC 4.06 L Hgb 10.1 L Hct 33.5 L MCV 82.5 MCH 24.9 L MCHC 30.1 L RDW 16.1 H Plt Count 274 MPV 10.9 Absolute Nucleated RBC 0.000 Nucleated RBC % (auto) 0.0 Sodium 139 Potassium 5.1 Chloride 111 H Carbon Dioxide 24 Anion Gap 9 L BUN 6 L Creatinine 0.68 Estim Creat Clear Calc 97.4 Estimated GFR > 60 Random Glucose 81 Calcium 8.8 D Vancomycin Trough T.pallidum Ab (EIA) Nonreactive HIV 1&2 Ab/P24 Ag 4thGn Preliminary micro results at discharge 08/14/20 20:17 Blood Culture - Preliminary Blood - Venous No growth after 24 hours. 08/14/20 20:11 Blood Culture - Preliminary Blood - Venous No growth after 24 hours. Discharge Plan Discharge Anticipated Discharge Date/Time: 08/16/20 14:48 Patient Disposition: Xfer Psychiatric Hosp Referrals: Lacho Jain MD [Primary Care Provider] - 1 Week Discharge Medications: Continued methadone [Methadone Intensol] 10 mg/mL Concentrate 103 mg PO DAILY RF: 0 No Action doxycycline hyclate 100 mg Tablet 100 mg PO BID 5 Days Qty: 10 RF: 0 clonidine HCl 0.1 mg Tablet 0.1 mg PO TID PRN (Reason: withdrawal/anxiety) 5 Days Qty: 15 RF: 0 nicotine (polacrilex) 2 mg Gum 4 mg buccal Q2H PRN (Reason: Nicotine Cravings) 30 Days Qty: 30 RF: 0 prazosin 1 mg Capsule 1 mg PO BEDTIME 10 Days Qty: 10 RF: 0 gabapentin 300 mg Capsule 600 mg PO TID 10 Days Qty: 60 RF: 0 hydroxyzine HCl 50 mg Tablet 50 mg PO Q6H PRN (Reason: Anxiety) 10 Days Qty: 10 RF: 0 folic acid 1 mg Tablet 1 mg PO DAILY 10 Days Qty: 10 RF: 0 thiamine mononitrate (vit B1) 100 mg Tablet 100 mg PO DAILY 10 Days Qty: 10 RF: 0 Discharge Orders: Discharge Order (Routine); Ordered 08/16/20 Ordered By: Morgan Daley Diet: advance to usual diet Activity on Discharge: As tolerated Stand Alone Forms: Patient Portal Discharge page Care Plan Goals: Complete resolution of cellulitis Health Concerns: Cellulitis Foreign body in right arm Plan of Treatment: Follow up with general surgeon, Dr. Abena Hinson for removal of foreign body in right forearm [phone] Continue oral doxycycline for 7 days Discharge Date/Time: 08/16/20 23:25
== END 2020-08-16 23:25 | DRG 603 ==
LOC: HO.ED 19:21 → HO.EDOVER 21:51 → HO.S3 08-15 07:08
PROVIDERS: Internal Medicine; Nurse Practitioner Primary Care; Admitting Provider Hospitalist; Emergency Provider Emergency Medicine; PCP Internal Medicine; Visit Provider Family Medicine
DX: L03.114 Cellulitis of left upper limb (principal); F11.20 Opioid dependence, uncomplicated; R45.851 Suicidal ideations; L03.113 Cellulitis of right upper limb; F17.210 Nicotine dependence, cigarettes, uncomplicated; M79.5 Residual foreign body in soft tissue; Z71.6 Tobacco abuse counseling; R31.29 Other microscopic hematuria; S93.401A Sprain of unspecified ligament of right ankle, initial encounter; X58.XXXA Exposure to other specified factors, initial encounter; Y93.9 Activity, unspecified; Y92.9 Unspecified place or not applicable; Y99.9 Unspecified external cause status; Z20.822 Contact with and (suspected) exposure to COVID-19; Z88.2 Allergy status to sulfonamides; Z79.899 Other long term (current) drug therapy
CPT/HCPCS: 36415; 71045; 71275; 73090; 73600; 73620; 74177; 76882; 78227; 80048; 80053; 80202; 80307; 81001; 81025; 83605; 84484; 85025; 85027; 85610; 85652; 85730; 86140; 86780; 87040; 87389; 87635; 93005; 96365; 96375; 99284; 99285; A9537; J1885; J2405; J2543; J2805; J3370; Q9967

== ENCOUNTER 2020-08-16 23:31 | Inpatient (IN) | payer MEDICARE, MEDICAID, SELFPAY ==
[2020-08-16 23:41] VITALS: BMI 23.8
[2020-08-17] VITALS (8 sets, daily range): BP systolic 115–130; BP diastolic 56–73; PULSE 72–80; RESP 16–18; TEMP 35.9–36.8; O2SAT 99–100
[2020-08-17] MEDS: LORazepam 1 MG TABLET PO ×2 (00:27→06:27)
[2020-08-17] MEDS: Acetaminophen 325 MG TABLET 650 MG PO ×3 (00:27→18:03)
[2020-08-17] MEDS: oxyCODONE HCl Immed Release 5 MG TABLET 10 MG PO ×2 (01:24→08:42)
--- NOTE | 2020-08-17 02:53 | PC.NURSE ---
Patient signed a 3-day notice on 08/17/20 and will on Fri08/23/20.
--- NOTE | 2020-08-17 03:21 | PC.ADMIT ---
Pt is a 29 yo female admitted from [facility] to at 00:05 after signing a CV and with admitting dx of borderline personality disorder. Pt signed a 3-day notice upon admission. Pt assessed by ED on 08/14/20 after self-presenting with bilateral forearm pain, redness, and swelling which had worsened over past month. Admitted and treated for cellulitis R forearm. Pt previously prescribed Keflex and doxy 1.5 wks prior. Pt made vague SI statement while ED and changed to section 12. Reported polysubstance abuse: CASIANO + positive opi and cocaine. Track ureña bilaterally from IV drug use and confirmed needle fragments bilateral forearms to be removed outpt. Right ankle sprain r/t injury 1.5 yrs ago with boot. Hx of eating disorder but non current. Reported ETOH withdrawals during admission to and h/a 11/11 . Ativan 1 mg admin. Currently living in [facility] housing but to be evicted due to non payment of rent. Everbody uses drugs there. Reports IV heroin, IV cocaine, and ETOH use daily. Last treatement in May 2019. Reports methadone maint through [facility] but needs verification. Reports open legal cases r/t assault and trespassing. Denied AH/VH/HI/SI upon admission. Denied hx of SA and denied intent or plan. Contracted for safety. Father committed suicide and mother 3 yrs ago. This is pt's first psychiatric IPLOC but several past IPLOC for substance abuse. VSS. On-call provider notified and orders submitted. Pt placed on Q5 min safety checks. Reported strong cravings but hopes to continue treatment.
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
[2020-08-17] MEDS: Gabapentin 300 MG CAPSULE PO (08:42)
[2020-08-17] MEDS: cloNIDine HCL 0.1 MG TABLET PO ×2 (09:10→18:03)
[2020-08-17] MEDS: Nicotine Polacrilex 2 MG GUM 4 MG BUCCAL ×2 (10:01→20:24)
[2020-08-17] MEDS: clonazePAM 1 MG TABLET PO ×2 (12:26→20:21)
[2020-08-17] MEDS: Folic Acid 1 MG TABLET PO (12:26)
--- NOTE | 2020-08-17 13:15 | MHC.CLN ---
RE: CONSULT PT REPORTED 32# WT LOSS OVER 1 YEAR, TRIGGERS FOR 20% SIGNIFICANT WT LOSS PT APPEARS ADEQUATE WT FOR HT PT STATED HER APPETITE IS GREAT , EATING WELL PT NOT INTERESTED IN WT GAIN AND REFUSES ENSURE SUPPLEMENTS NO NUTRITION INTERVENTION RECOMMENDED AT THIS TIME
[2020-08-17] MEDS: Gabapentin 300 MG CAPSULE 600 MG PO ×2 (14:33→20:21)
[2020-08-17] MEDS: Prazosin HCL 1 MG CAPSULE PO (20:21)
[2020-08-17] MEDS: Gabapentin 400 MG CAPSULE PO (20:25)
[2020-08-18] VITALS: BP 125/60; PULSE 94; RESP 18; TEMP 35.8; O2SAT 99
[2020-08-18 00:39] VITALS: BP 125/60; PULSE 94
[2020-08-18] MEDS: Gabapentin 400 MG CAPSULE PO ×2 (00:39→06:58)
[2020-08-18] MEDS: cloNIDine HCL 0.1 MG TABLET PO ×2 (00:39→14:26)
[2020-08-18] MEDS: Acetaminophen 325 MG TABLET 650 MG PO ×2 (00:39→15:56)
[2020-08-18] MEDS: Nicotine Polacrilex 2 MG GUM 4 MG BUCCAL ×3 (00:46→14:26)
[2020-08-18] MEDS: clonazePAM 0.5 MG TABLET PO (06:57)
[2020-08-18 08:24] VITALS: BP 146/65; PULSE 83
[2020-08-18] MEDS: Thiamine HCL 100 MG TABLET PO (08:29)
[2020-08-18] MEDS: clonazePAM 1 MG TABLET PO (08:29)
[2020-08-18] MEDS: Gabapentin 300 MG CAPSULE 600 MG PO ×2 (08:29→14:24)
[2020-08-18] MEDS: Folic Acid 1 MG TABLET PO (08:30)
[2020-08-18 11:31] VITALS: PULSE 85
[2020-08-18 13:30] VITALS: BP 120/71; PULSE 63; RESP 14
[2020-08-18] MEDS: hydrOXYzine HCL 50 MG TABLET PO (14:26)
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
[2020-08-18] MEDS: Naloxone HCl Nasal TAKE HOME 4 MG SPRAY NOSTRILALT (16:05)
--- NOTE | 2020-08-18 16:16 | PC.NURSE ---
patient was found with belongings in her ortho boot including money, credit card, quarter backer and a small amount of marijuana. patient became upset and accusatory towards the hospital when she could not find her rahman.
== END 2020-08-18 16:23 | disposition home or self-care (01) | DRG 885 ==
PROVIDERS: Admitting Provider Psychiatry & Neurology Psychiatry; Visit Provider Social Worker
DX: F33.1 Major depressive disorder, recurrent, moderate (principal); F11.20 Opioid dependence, uncomplicated; F14.20 Cocaine dependence, uncomplicated; F17.210 Nicotine dependence, cigarettes, uncomplicated; Z71.6 Tobacco abuse counseling; Z88.2 Allergy status to sulfonamides; Z79.899 Other long term (current) drug therapy

== ENCOUNTER 2020-11-17 15:33 | Emergency (ER) | payer MEDICARE, MEDICAID, SELFPAY ==
[2020-11-17 15:34] VITALS: BMI 19.5
--- NOTE | 2020-11-17 15:36 | ED.OVERDOSE ---
HPI - Overdose General Chief Complaint: Overdose Stated Complaint: overdose Time Seen by Provider: 11/17/20 15:36 Source: patient and EMS Mode of arrival: EMS Limitations: other (agitated, demanding to leave) History of Present Illness complaint: accidental overdose Onset (ago): minute(s) Timing confirmed by: other (friend) Context: Accidental Overdose: wanted to get high Associated symptoms: other (NONE) Treatments Prior to Arrival: narcan (2mg IN with good effect) Related Data Home Medications Medication Instructions Recorded Confirmed methadone [Methadone Intensol] 103 mg PO DAILY 08/14/20 08/15/20 Previous Rx's Medication Instructions Recorded clonidine HCl 0.1 mg PO TID PRN 5 Days #15 tab 08/18/20 doxycycline hyclate 100 mg PO BID 5 Days #10 tab 08/18/20 folic acid 1 mg PO DAILY 10 Days #10 tab 08/18/20 gabapentin 600 mg PO TID 10 Days #60 cap 08/18/20 hydroxyzine HCl 50 mg PO Q6H PRN 10 Days #10 tab 08/18/20 nicotine (polacrilex) 4 mg BUCCAL Q2H PRN 30 Days #30 ea 08/18/20 prazosin 1 mg PO BEDTIME 10 Days #10 cap 08/18/20 thiamine mononitrate (vit B1) 100 mg PO DAILY 10 Days #10 tab 08/18/20 Allergies Allergy/AdvReac Type Severity Reaction Status Date / Time buprenorphine [From SUBOXONE] Allergy Severe ANAPHAYLAXI Verified 08/15/20 04:12 S naloxone [From SUBOXONE] Allergy Severe ANAPHAYLAXI Verified 08/15/20 04:12 S sulfamethoxazole Allergy Intermediate RASH Verified 08/15/20 04:12 [From BACTRIM] trimethoprim [From BACTRIM] Allergy Intermediate RASH Verified 08/15/20 04:12 lamotrigine [From LAMICTAL] Allergy Unknown RASH Verified 08/15/20 04:12 prednisone [PREDNISONE] Allergy Unknown UNKNOWN Verified 08/15/20 04:12 quetiapine [From SEROQUEL] Allergy Unknown UNKNOWN Verified 08/15/20 04:12 trazodone [TRAZODONE] Allergy Unknown UNKNOWN Verified 08/15/20 04:12 Review of Systems Review of Systems: ROS unable to be obtained due to patient being uncooperative PMFSH Past Medical History Attestation statement: The following information was validated with the patient. Medical History Alcohol abuse Cellulitis Foreign body (FB) in soft tissue Heroin abuse No known health problems Family History Family History Other Family history non-contributory Social History Social History Household Members: None Household Members Other:: lives in recovery housing Housing: Other Housing Other:: rents a room/ states shes homeless as wll Do you presently have visiting nurse or other home services: No Alcohol intake: unknown Cigarette Packs Per Day: 0.5 Cigarettes Per Day: 10.0 Second Hand Smoke Exposure: Yes Substance Use Type: Crack/Cocaine and Heroin service: No Current occupational status: disabled Sexual orientation: Straight/Heterosexual Physical Exam Vital Signs: Vital Signs: Body Mass Index 19.5 Appearance: Alert. Oriented X3. Agitated, anxious, mild acute distress Eyes: Pupils equal, round and reactive to light. ENT: Pharynx normal. Neck: Normal inspection. Neck supple. CVS: Pulses normal. Respiratory: No respiratory distress. Abdomen: Soft and non-tender. Skin: Skin warm and dry. Normal skin color. Normal skin Extremities: No lower extremity edema. Neuro: Oriented X 3. No motor deficit. No sensory deficit. MDM - Overdose MDM Narrative Medical decision making narrative: 29 yo female accidental heroin overdose, on arrival [facility] upset a male friend had her belongings, refused to stay in the ED, no SI - requested she stay but we could not keep her here against her will, unable to section her given no SI, [facility] - she refuses to stay in the department Discharge Plan Discharge Clinical Impression: Heroin overdose Qualifiers: Encounter type: initial encounter Injury intent: accidental or unintentional Qualified Code(s): T40.1X1A - Poisoning by heroin, accidental (unintentional), initial encounter Patient Disposition: Left Against Medical Advice Instructions: Against Medical Advice (ED), Opioid Use Disorder (ED) Additional Instructions: return to ED for any worsening symptoms or concerns YOU REFUSED WORKUP IN THE ED WE DISCUSSED OBSERVATION, OFFERED DETOX AND OFFERED HOME NARCAN - YOU REFUSED AND WOULD NOT STAY IN THE EMERGENCY DEPARTMENT. THIS COULD BE LIFE THREATENING AND CAUSE YOU TO Prescriptions: No Action methadone [Methadone Intensol] 10 mg/mL Concentrate 103 mg PO DAILY RF: 0 doxycycline hyclate 100 mg Tablet 100 mg PO BID 5 Days Qty: 10 RF: 0 clonidine HCl 0.1 mg Tablet 0.1 mg PO TID PRN (Reason: withdrawal/anxiety) 5 Days Qty: 15 RF: 0 nicotine (polacrilex) 2 mg Gum 4 mg buccal Q2H PRN (Reason: Nicotine Cravings) 30 Days Qty: 30 RF: 0 prazosin 1 mg Capsule 1 mg PO BEDTIME 10 Days Qty: 10 RF: 0 gabapentin 300 mg Capsule 600 mg PO TID 10 Days Qty: 60 RF: 0 hydroxyzine HCl 50 mg Tablet 50 mg PO Q6H PRN (Reason: Anxiety) 10 Days Qty: 10 RF: 0 folic acid 1 mg Tablet 1 mg PO DAILY 10 Days Qty: 10 RF: 0 thiamine mononitrate (vit B1) 100 mg Tablet 100 mg PO DAILY 10 Days Qty: 10 RF: 0
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
== END 2020-11-17 15:52 | disposition left against medical advice (07) ==
LOC: HO.ED 15:43
PROVIDERS: Emergency Provider Emergency Medicine
DX: T40.1X1A Poisoning by heroin, accidental (unintentional), initial encounter (principal); F11.10 Opioid abuse, uncomplicated; Y92.9 Unspecified place or not applicable
CPT/HCPCS: 99283

== ENCOUNTER 2022-06-02 12:55 | Emergency (ER) | payer MEDICARE, MEDICAID, SELFPAY ==
--- NOTE | ~2022-06-02 | US_ITS ---
EXAMINATION: US , LESS THAN 14 WEEKS CLINICAL INFORMATION: Bleeding. Reported . Negative urinary hCG COMPARISON: None. TECHNIQUE: Transcutaneous early obstetrical ultrasound. The patient was asked to void completely and reexamined vaginally to better characterize the uterus and adnexa FINDINGS: The urinary bladder is not well distended and did not serve as a optimal acoustic window. No mass or collection on transcutaneous scanning. Transvaginal scanning was subsequently performed No suspicious abnormality in the expected region of the vagina. The uterus is anteverted. No suspicious abnormality in the region of the cervix. There is no gestational sac demonstrated. There is no yolk sac demonstrated. There is no pole demonstrated. There is no cardiac activity demonstrated. There is no suspicious abnormality in the region of the cervix. The cervix measures approximately 2.6 cm. The uterus measures approximately 6.5 x 2.9 x 4.2 cm. The uterine contour is smooth. The endometrium is uniform and thin. The endometrium measures approximately 0.2 cm. No focal abnormality of the myometrium. Placenta findings: No placenta demonstrated No large adnexal mass. Structures which may represent the ovaries were documented. What appears to represent the right ovary measures approximately 2.0 x 1.8 x 1.8 cm.The estimated right ovarian volume is approximately 3 mL. No suspicious right adnexal mass or collection. No findings to suggest the presence of a right adnexal ectopic What appears to represent the left ovary measures approximately 1.7 x 1.3 x 1.6 cm. The estimated left ovarian volume is approximately 2 mL. No findings to suggest the presence of a left adnexal ectopic Measurements include: No gestational sac demonstrated No yolk sac demonstrated No pole demonstrated Dating is unable to be performed No cardiac activity. survey: Not applicable There is no significant free pelvic fluid demonstrated. US/US OB pelvic and transvaginal IMPRESSION: No intrauterine gestation. No sonographic findings to suggest the presence of an ectopic . The patient should be managed on the basis of the history, physical findings and serial beta hCG.
[2022-06-02 13:00] VITALS: BP 130/81; PULSE 78; RESP 16; TEMP 36.7; O2SAT 98; BMI 27.8
--- NOTE | 2022-06-02 13:01 | ED_ITS ---
HPI - General Adult General Chief complaint: General Medical Stated complaint: Miscarriage? Multiple issues Time Seen by Provider: 06/02/22 13:08 Source: patient Mode of arrival: ambulatory Limitations: no limitations History of Present Illness HPI narrative: Patient is a 31 year old female presenting emergency department with multiple complaints. She states last menstrual period was 04/06/2022, 6 days ago she was evaluated at [facility] and was advised that she is having a miscarriage, the story is vague, but she does report that she ultimately left without being seen verses left AMA, because she states she was waiting too long. For the past week she has been taking oral Augmentin, which she received from her boyfriend. Currently complaining of cramping, active vaginal bleeding, cold hands and feet, nausea, chills, diarrhea, chest pain, shortness of breath, lower back and lower abdominal pain. Reports history of IV drug usage, denies any current or recent usage. Related Data Home Medications Medication Instructions Recorded Confirmed methadone 10 mg/mL oral 103 mg PO DAILY 08/14/20 08/15/20 concentrate (Methadone Intensol) Previous Rx's Medication Instructions Recorded clonidine HCl 0.1 mg tablet 0.1 mg PO TID PRN 08/18/20 withdrawal/anxiety 5 days #15 tabs doxycycline hyclate 100 mg tablet 100 mg PO BID 5 days #10 tabs 08/18/20 folic acid 1 mg tablet 1 mg PO DAILY 10 days #10 tabs 08/18/20 gabapentin 300 mg capsule 600 mg PO TID 10 days #60 caps 08/18/20 hydroxyzine HCl 50 mg tablet 50 mg PO Q6H PRN Anxiety 10 days 08/18/20 #10 tabs nicotine (polacrilex) 2 mg gum 4 mg buccal Q2H PRN Nicotine 08/18/20 Cravings 30 days #30 ea prazosin 1 mg capsule 1 mg PO BEDTIME 10 days #10 caps 08/18/20 thiamine mononitrate (vit B1) 100 100 mg PO DAILY 10 days #10 tabs 08/18/20 mg tablet Allergies Allergy/AdvReac Type Severity Reaction Status Date / Time buprenorphine [From SUBOXONE] Allergy Severe ANAPHAYLAXI Verified 08/15/20 04:12 S naloxone [From SUBOXONE] Allergy Severe ANAPHAYLAXI Verified 08/15/20 04:12 S sulfamethoxazole Allergy Intermediate RASH Verified 08/15/20 04:12 [From BACTRIM] trimethoprim [From BACTRIM] Allergy Intermediate RASH Verified 08/15/20 04:12 lamotrigine [From LAMICTAL] Allergy Unknown RASH Verified 08/15/20 04:12 prednisone [PREDNISONE] Allergy Unknown UNKNOWN Verified 08/15/20 04:12 quetiapine [From SEROQUEL] Allergy Unknown UNKNOWN Verified 08/15/20 04:12 trazodone [TRAZODONE] Allergy Unknown UNKNOWN Verified 08/15/20 04:12 Review of Systems Review of Systems: Review of symptoms grossly positive as noted in HPI [facility] Past Medical History Medical History Alcohol abuse Cellulitis Foreign body (FB) in soft tissue Heroin abuse No known health problems Family History Family History Other Family history non-contributory Social History Social History Household Members: None Household Members Other:: lives in recovery housing Housing: Other Housing Other:: rents a room/ states shes homeless as wll Do you presently have visiting nurse or other home services: No Alcohol intake: never Cigarette Packs Per Day: 0.5 Cigarettes Per Day: 10.0 Smoked in Last 30 Days: Yes Second Hand Smoke Exposure: Yes Use of substances other than those prescribed or required for medical reasons: No Substance Use Type: Crack/Cocaine and Heroin Advance Directives: No Advance Directives Information Provided: Yes service: No Current occupational status: disabled Sexual orientation: Straight/Heterosexual Physical Exam ED Vital Signs: Vital Signs - 24 hr 06/02/22 13:00 06/02/22 14:00 Temperature 98.1 F 98.2 F Pulse Rate 78 56 Respiratory Rate 16 14 Blood Pressure 130/81 105/66 Pulse Oximetry 98 96 Oxygen Delivery Method Room Air Room Air BMI result Body Mass Index 27.8 Appearance: Alert.?Oriented to person, place and time. No acute distress.?Normal affect. Eyes: Pupils equal, round and reactive to light.? ENT: Pharynx normal.?? Neck: Normal inspection.? Neck supple.?? CVS: Heart sounds normal. Normal heart rate and rhythm.? Pulses normal.?? Respiratory: No respiratory distress.? Lung sounds clear to auscultation bilaterally?? Abdomen: Soft and non-tender. Normoactive bowel sounds. No rebound tenderness at McBurney negative Rovsing sign, psoas sign, obturator's sign. No guarding. No rigidity. No CVAT Skin: Skin warm and dry.? Normal skin color.? Extremities: No lower extremity edema.? Neuro: Moves all extremities spontaneously. Sensation intact bilaterally. CN II- XII intact. No focal neuro deficits. Ambulates with normal steady gait. Course Course Course Narrative: This is an RME: Additional HPI, ROS, PE not included below will be deferred to primary provider. Patient is a 31 year old female presenting emergency department with multiple complaints. She states last menstrual period was 04/06/2022, 6 days ago she was evaluated at [facility] and was advised that she is having a miscarriage, the story is vague, but she does report that she ultimately left without being seen verses left AMA, because she states she was waiting too long. 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 For the past week she has been taking oral Augmentin, which she received from her boyfriend. Currently complaining of cramping, active bleeding, cold hands and feet, nausea, chills, diarrhea, chest pain, shortness of breath, severe back and lower abdominal pain. Plan: Labs, urinalysis, pelvic ultrasound - patient was brought in to room 1 in the main ED initially. A provider had signed up to care for patient, upon entering the room patient became very hostile and agitated towards the provider. Stating that the provider had a ?vendetta against her?, screaming and yelling at her demanding that she leave the room. Security presented to bedside, patient was able to be de-escalated. She was also accusatory towards ultrasound staff, stating do had a problem with me, do we have a problem . Requiring de-escalation from staff. Reevaluation(s) Reevaluation #1: Received records from [facility], 05/27/2022 serum test was negative, 05/31/2022 CBC and CMP overall unremarkable, Patient had initial evaluation during nursing triage, was not evaluated by MD/LAMINE before leaving without being seen. Re-evaluation: PERC negative, do not suspect PE at this time as cause of symptomology. Vital signs are stable, she is afebrile without tachycardia, tachypnea, or hypoxia. CBC reveals no leukocytosis, a normocytic anemia which appears consistent with prior labs. CMP is overall unremarkable, Lipase within normal limits, do not suspect hepatic/biliary etiology at this time. Serum hCG is negative, not consistent with ectopic . Urinalysis not consistent with urinary tract infection, blood present in urine, although she is reporting active vaginal bleeding. EKG revealing normal sinus rhythm, ventricular rate of 66, no ST elevation, ST depression, QTC 438, does not appear consistent with acute ACS/ischemic findings. Time: 14:25 Reevaluation #2: Pelvic ultrasound revealing no intrauterine gestation, no findings to suggest ectopic , no adnexal masses or collections. I reviewed all finding with patient and her significant other at this time. There is no current concerns for acute abdomen based on history and physical examination. I have a low suspicion for appendicitis, diverticulitis, colitis, bowel obstruction, o bstructive ureteral stone, hydronephrosis, ovarian torsion, at this time would defer any CT imaging of the abdomen and pelvis. She is eating and drinking at the time of my re-evaluation. Declines pelvic examination. She expresses concern for urinary tract infection, at this time there is no evidence of infection, she has been taking Augmentin orally however for the past week by her report, which she received from her significant other, would not treat with additional antibiotics at this time, culture will be followed. Patient advised that she should follow-up with primary care/urogynecology physician provider. Discussed worrisome signs and symptoms that would warrant re-evaluation in the emergency department. All questions were answered. Stable for discharge. Time: 15:28 Reevaluation #3: At discharge, Patient demanding work note for 1 week. Patient advised that that is not indicated at this time. She became very agitated, yelling. Required security assistance to be escorted out of the emergency department. Medical Decision Making Medical Decision Making MDM Narrative: Patient is a 31-year-old female with past medical history of polysubstance abuse, presenting to emergency department with reports of active miscarriage and multiple complaints as outlined in HPI. At the time of initial examination she is nontoxic in appearance, afebrile without tachycardia, tachypnea, or hypoxia. She is able to speak clear full sentences, has no respiratory distress. Physical examination is overall benign. Labs, urinalysis, EKG, ultrasound, viral testing to be obtained as noted in the initial RME course. Differential Diagnosis Differential Diagnoses: The differential diagnosis associated with the presentation includes (As noted in course) Lab Data MDM Lab Attestation statement: I reviewed the patient's lab results. 06/02/22 13:48 06/02/22 13:48 Labs: Lab Results 06/02/22 06/02/22 06/02/22 Range/Units 13:47 13:48 13:48 WBC 5.5 (4.8-10.8) X10*3/uL RBC 4.35 (4.20-5.50) X10*6/uL Hgb 11.8 L (12.0-16.0) g/dl Hct 36.3 L (37.0-47.0) % MCV 83.4 (80.0-98.0) fL MCH 27.1 (27.0-33.0) pg MCHC 32.5 (31.0-35.0) g/dl RDW 15.2 (11.0-16.0) % Plt Count 206 (160-400) X10*3/uL MPV 10.9 (9.4-12.3) fL Immature Gran % (Auto) 0.0 (0.0-0.4) % Neut % (Auto) 35.0 L (45-73) % Lymph % (Auto) 53.7 H (20-40) % [place] % (Auto) 9.5 (2-11) % Eos % (Auto) 1.3 (0-4) % Baso % (Auto) 0.5 (0-2) % Lymph # (Auto) 2.9 (1.2-4.9) X10*3/uL [place] # (Auto) 0.5 (0.1-1.2) X10*3/uL Eos # (Auto) 0.1 (0.0-0.4) X10*3/uL Baso # (Auto) 0.0 (0.0-0.2) X10*3/uL Abs Immat Gran (auto) 0.00 (0.00-0.03) X10*3/uL Absolute Neuts (auto) 1.9 L (2.0-8.3) x10*3/uL Absolute Nucleated RBC 0.000 (0.0-0.012) X10*3/uL Nucleated RBC % (auto) 0.0 (0.0-0.2) /100WBC PT (10.0-13.1) SEC INR (0.9-1.1) Sodium 137 (135-145) mmol/L Potassium 4.7 (3.3-5.1) mmol/L Chloride 108 (96-108) mmol/L Carbon Dioxide 23 (22-29) mmol/L Anion Gap 11 L (12-20) BUN 12 (9-16) mg/dL Creatinine 0.73 (0.5-1.4) mg/dL Estim Creat Clear Calc 102.5 Estimated GFR > 60 Random Glucose 106 (60-115) mg/dL Calcium 9.1 (8.4-10.2) mg/dL Magnesium (1.6-2.6) mg/dL Total Bilirubin 0.2 (0.0-1.0) mg/dL AST 30 (5-31) U/L ALT 38 H (0-31) U/L Alkaline Phosphatase 61 (39-117) U/L Total Protein 7.2 (6.5-8.0) g/dL Albumin 4.1 (3.5-5.0) g/dL Lipase (8-78) U/L Beta HCG, Quant < 2 mIU/mL Urine Color Urine Appearance Urine pH (5.0-9.0) Ur Specific [place] (1.005-1.025) Urine Protein (Neg-Trace) mg/dL Urine Glucose (UA) (Negative) mg/dL Urine Ketones (Negative) mg/dL Urine Blood (Negative) Urine Nitrite (Negative) Ur Leukocyte Esterase (Negative) Urine RBC (0-2) /HPF Urine WBC (0-5) /HPF Ur Squamous Epith Cells (0-2) /HPF Urine Bacteria (None Seen) Hyaline Casts (0-2) /LPF Urine Test (NEGATIVE) Influenza Type A (PCR) (Negative) Influenza Type B (PCR) (Negative) RSV RNA Qual (PCR) (Negative) SARS-CoV-2 RNA (RT-PCR) (Negative) Blood Type A Positive 06/02/22 06/02/22 06/02/22 Range/Units 13:48 13:48 13:48 WBC (4.8-10.8) X10*3/uL RBC (4.20-5.50) X10*6/uL Hgb (12.0-16.0) g/dl Hct (37.0-47.0) % MCV (80.0-98.0) fL MCH (27.0-33.0) pg MCHC (31.0-35.0) g/dl RDW (11.0-16.0) % Plt Count (160-400) X10*3/uL MPV (9.4-12.3) fL Immature Gran % (Auto) (0.0-0.4) % Neut % (Auto) (45-73) % Lymph % (Auto) (20-40) % [place] % (Auto) (2-11) % Eos % (Auto) (0-4) % Baso % (Auto) (0-2) % Lymph # (Auto) (1.2-4.9) X10*3/uL [place] # (Auto) (0.1-1.2) X10*3/uL Eos # (Auto) (0.0-0.4) X10*3/uL Baso # (Auto) (0.0-0.2) X10*3/uL Abs Immat Gran (auto) (0.00-0.03) X10*3/uL Absolute Neuts (auto) (2.0-8.3) x10*3/uL Absolute Nucleated RBC (0.0-0.012) X10*3/uL Nucleated RBC % (auto) (0.0-0.2) /100WBC PT 11.1 (10.0-13.1) SEC INR 1.0 (0.9-1.1) Sodium (135-145) mmol/L Potassium (3.3-5.1) mmol/L Chloride (96-108) mmol/L Carbon Dioxide (22-29) mmol/L Anion Gap (12-20) BUN (9-16) mg/dL Creatinine (0.5-1.4) mg/dL Estim Creat Clear Calc Estimated GFR Random Glucose (60-115) mg/dL Calcium (8.4-10.2) mg/dL Magnesium 1.8 (1.6-2.6) mg/dL Total Bilirubin (0.0-1.0) mg/dL AST (5-31) U/L ALT (0-31) U/L Alkaline Phosphatase (39-117) U/L Total Protein (6.5-8.0) g/dL Albumin (3.5-5.0) g/dL Lipase 9 (8-78) U/L Beta HCG, Quant mIU/mL Urine Color Urine Appearance Urine pH (5.0-9.0) Ur Specific [place] (1.005-1.025) Urine Protein (Neg-Trace) mg/dL Urine Glucose (UA) (Negative) mg/dL Urine Ketones (Negative) mg/dL Urine Blood (Negative) Urine Nitrite (Negative) Ur Leukocyte Esterase (Negative) Urine RBC (0-2) /HPF Urine WBC (0-5) /HPF Ur Squamous Epith Cells (0-2) /HPF Urine Bacteria (None Seen) Hyaline Casts (0-2) /LPF Urine Test (NEGATIVE) Influenza Type A (PCR) NEGATIVE (Negative) Influenza Type B (PCR) NEGATIVE (Negative) RSV RNA Qual (PCR) NEGATIVE (Negative) SARS-CoV-2 RNA (RT-PCR) NEGATIVE (Negative) Blood Type 06/02/22 06/02/22 Range/Units 13:49 13:49 WBC (4.8-10.8) X10*3/uL RBC (4.20-5.50) X10*6/uL Hgb (12.0-16.0) g/dl Hct (37.0-47.0) % MCV (80.0-98.0) fL MCH (27.0-33.0) pg MCHC (31.0-35.0) g/dl RDW (11.0-16.0) % Plt Count (160-400) X10*3/uL MPV (9.4-12.3) fL Immature Gran % (Auto) (0.0-0.4) % Neut % (Auto) (45-73) % Lymph % (Auto) (20-40) % [place] % (Auto) (2-11) % Eos % (Auto) (0-4) % Baso % (Auto) (0-2) % Lymph # (Auto) (1.2-4.9) X10*3/uL [place] # (Auto) (0.1-1.2) X10*3/uL Eos # (Auto) (0.0-0.4) X10*3/uL Baso # (Auto) (0.0-0.2) X10*3/uL Abs Immat Gran (auto) (0.00-0.03) X10*3/uL Absolute Neuts (auto) (2.0-8.3) x10*3/uL Absolute Nucleated RBC (0.0-0.012) X10*3/uL Nucleated RBC % (auto) (0.0-0.2) /100WBC PT (10.0-13.1) SEC INR (0.9-1.1) Sodium (135-145) mmol/L Potassium (3.3-5.1) mmol/L Chloride (96-108) mmol/L Carbon Dioxide (22-29) mmol/L Anion Gap (12-20) BUN (9-16) mg/dL Creatinine (0.5-1.4) mg/dL Estim Creat Clear Calc Estimated GFR Random Glucose (60-115) mg/dL Calcium (8.4-10.2) mg/dL Magnesium (1.6-2.6) mg/dL Total Bilirubin (0.0-1.0) mg/dL AST (5-31) U/L ALT (0-31) U/L Alkaline Phosphatase (39-117) U/L Total Protein (6.5-8.0) g/dL Albumin (3.5-5.0) g/dL Lipase (8-78) U/L Beta HCG, Quant mIU/mL Urine Color Yellow Urine Appearance Clear Urine pH 6.5 (5.0-9.0) Ur Specific [place] 1.015 (1.005-1.025) Urine Protein Negative (Neg-Trace) mg/dL Urine Glucose (UA) Negative (Negative) mg/dL Urine Ketones Negative (Negative) mg/dL Urine Blood Small (1+) H (Negative) Urine Nitrite Negative (Negative) Ur Leukocyte Esterase Negative (Negative) Urine RBC 0-2 (0-2) /HPF Urine WBC 0-5 (0-5) /HPF Ur Squamous Epith Cells 6-10 (0-2) /HPF Urine Bacteria None Seen (None Seen) Hyaline Casts 0-2 (0-2) /LPF Urine Test NEGATIVE (NEGATIVE) Influenza Type A (PCR) (Negative) Influenza Type B (PCR) (Negative) RSV RNA Qual (PCR) (Negative) SARS-CoV-2 RNA (RT-PCR) (Negative) Blood Type Independent Interpretation I performed an independent interpretation of an: EKG (As noted in course) and Ultrasound Radiology Impression Discussion of test interpretation with radiology: I have reviewed the radiologist's reading. Radiologist Impression: US/US OB pelvic and transvaginal IMPRESSION: No intrauterine gestation. ? No sonographic findings to suggest the presence of an ectopic . ? The patient should be managed on the basis of the history, physical findings and serial beta hCG. Independent Historian Clinical information obtained from an independent historian. History obtained from or confirmed by: Spouse (Significant other is present at bedside who confirms history.) Prescription Management I considered prescription management with: Pain Medication (Acetaminophen/ibupro fen) Discharge Plan Discharge Clinical Impression: Abdominal pain, Chest pain Patient Disposition: Home, Self-Care Instructions: Abdominal Pain (ED), Noncardiac Chest Pain (ED) Additional Instructions: As we discussed, your blood work today was overall normal. At this time there is no evidence of a severe infections such as sepsis which you expressed concern about. Your test today is negative. Your ultrasound does not show any evidence of or miscarriage at this time. Your urine test does not show any evidence of urinary tract infection. You were tested for COVID-19, flu, and RSV all of which were negative. Your EKG today was normal. You can take ibuprofen 200 mg, 3 tablets (600mg) every 6-8 hours as needed for pain, in addition to Tylenol 500 mg, 2 tablets (1,000mg) every 4-6 hours as needed for pain, but not to exceed 3 doses daily (3,000mg).? Please contact primary care provider/urogynecology physician provider to arrange for further follow- up within the next 3 days for persistent symptoms. You can return back to the emergency department with any new or worsening symptoms or concerns. Prescriptions: No Action methadone [Methadone Intensol] 10 mg/mL Concentrate 103 mg PO DAILY doxycycline hyclate 100 mg Tablet 100 mg PO BID 5 Days Qty: 10 0RF clonidine HCl 0.1 mg Tablet 0.1 mg PO TID PRN (Reason: withdrawal/anxiety) 5 Days Qty: 15 0RF Protocol: Hold for SBP< HOLD for SBP < : 90 nicotine (polacrilex) 2 mg Gum 4 mg buccal Q2H PRN (Reason: Nicotine Cravings) 30 Days Qty: 30 0RF prazosin 1 mg Capsule 1 mg PO BEDTIME 10 Days Qty: 10 0RF Protocol: Hold for SBP< HOLD for SBP < : 90 gabapentin 300 mg Capsule 600 mg PO TID 10 Days Qty: 60 0RF hydroxyzine HCl 50 mg Tablet 50 mg PO Q6H PRN (Reason: Anxiety) 10 Days Qty: 10 0RF folic acid 1 mg Tablet 1 mg PO DAILY 10 Days Qty: 10 0RF thiamine mononitrate (vit B1) 100 mg Tablet 100 mg PO DAILY 10 Days Qty: 10 0RF Referrals: Lacho Jain MD [Primary Care Provider] - Stand Alone Forms: Work/School Release Interventions: ED Discharge Assessment Last Done: 06/02/22 16:27 Discharge Date/Time: 06/02/22 16:29
--- NOTE | 2022-06-02 13:18 | ECG_ITS ---
Test Reason : hx mi Blood Pressure : / mmHG Vent. Rate : 066 BPM Atrial Rate : 066 BPM P-R Int : 142 ms QRS Dur : 082 ms QT Int : 418 ms P-R-T Axes : 007 086 036 degrees QTc Int : 438 ms Normal sinus rhythm Normal ECG When compared with ECG of 14-AUG-2020 20:21, No significant change was found Referred By: Felicity Acevedo Electronically Signed By:Jeovany Mckeon
[2022-06-02 13:58] LABS: MANUAL DIFF FLAG NO
--- NOTE | 2022-06-02 13:58 | PC.NURSE ---
patient a&ox3, family at bedside, upon this nurse coming into the room, provider and tech were with security in the room and the patient was yelling wanting staff to leave the room as she felt she wasnt being listened to and felt she was being judged about her past drug use, pt asked for a different provider. This nurse sat at bedside in attempts to calm the patient and we spoke about starting from scratch from the point of her coming to this ed and what her concerns were. New provider was obtained, a different tech assisted this nurse in the room. The patient calmed and was agreeable to lab draws, ekg. Labs drawn by Marta, urine obtained, nasal swab obtained, ekg performed by this nurse, pt hooked up to a molder setter. Pt was told step by step what this nurse would be doing to ensure she was agreeable prior to having anything done. The patient was then informed that the lab results will take a while to result and also told her ekg was looked at by the provider and looked good and that she would be taken for an ultrasound. Patient is complaining of pain at this time, call clarke within reach, will continue to monitor.
[2022-06-02 14:00] VITALS: BP 105/66; PULSE 56; RESP 14; TEMP 36.8; O2SAT 96
[2022-06-02 14:03] LABS: Basophils Percent Auto 0.5 % (0-2); Eosinophils Absolute Auto 0.1 X10*3/uL (0.0-0.4); Eosinophils Percent Auto 1.3 % (0-4); Hematocrit 36.3 % (37.0-47.0); Hemoglobin 11.8 g/dl (12.0-16.0); Lymphocytes Absolute Auto 2.9 X10*3/uL (1.2-4.9); Lymphocytes Percent Auto 53.7 % (20-40); Mean Corpuscular HGB Conc 32.5 g/dl (31.0-35.0); Mean Corpuscular Hemoglobin 27.1 pg (27.0-33.0); Mean Corpuscular Volume 83.4 fL (80.0-98.0); Mean Platelet Volume 10.9 fL (9.4-12.3); Monocytes Absolute Auto 0.5 X10*3/uL (0.1-1.2); Monocytes Percent Auto 9.5 % (2-11); Neutrophils Absolute Auto 1.9 x10*3/uL (2.0-8.3); Platelet Count 206 X10*3/uL (160-400); Red Blood Count 4.35 X10*6/uL (4.20-5.50); Red Cell Distribution Width 15.2 % (11.0-16.0); White Blood Count 5.5 X10*3/uL (4.8-10.8)
[2022-06-02 14:04] LABS: Appearance Urine Clear; Color Urine Yellow; Glucose Urine UA Negative (Negative); Leukocyte Esterase Urine Negative (Negative); Nitrite Urine Negative (Negative); PH 6.5 (5.0-9.0); Specific Gravity - Urine 1.015 (1.005-1.025); UMIC TRIGGER UACC YES; Urine Blood Small (1+) (Negative); Urine Ketones Negative (Negative); Urine Protein Negative (Neg-Trace)
[2022-06-02 14:07] LABS: UPreg QC Valid YES; Urine Pregnancy NEGATIVE (NEGATIVE)
[2022-06-02 14:09] LABS: Prothrombin Time 11.1 SEC (10.0-13.1)
[2022-06-02 14:17] LABS: Lipase 9 U/L (8-78); Magnesium 1.8 mg/dL (1.6-2.6)
[2022-06-02 14:21] LABS: Bacteria Urine None Seen (None Seen); Hyaline Casts Urine 0-2 /LPF (0-2); RBC Urine 0-2 /HPF (0-2); WBC Urine 0-5 /HPF (0-5)
[2022-06-02 14:25] LABS: Alanine Aminotransferase 38 U/L (0-31); Albumin Level 4.1 g/dL (3.5-5.0); Alkaline Phosphatase 61 U/L (39-117); Anion Gap 11 (12-20); Aspartate Amino Transferase 30 U/L (5-31); Bilirubin Total 0.2 mg/dL (0.0-1.0); Blood Urea Nitrogen 12 mg/dL (9-16); Calcium 9.1 mg/dL (8.4-10.2); Carbon Dioxide 23 mmol/L (22-29); Chloride 108 mmol/L (96-108); Creatinine Clr Calc Pharmacy 102.5; Estimated Glomerular Filt Rate > 60; Glucose Random 106 mg/dL (60-115); Potassium 4.7 mmol/L (3.3-5.1); Sodium 137 mmol/L (135-145); Total Protein 7.2 g/dL (6.5-8.0)
[2022-06-02 14:27] LABS: HCG Quantitative < 2 mIU/mL
[2022-06-02 14:37] LABS: Influenza A PCR NEGATIVE (Negative); Influenza B PCR NEGATIVE (Negative); Resp Syncy Virus RNA Qual PCR NEGATIVE (Negative); SARS COV2 PCR INHOUSE NEGATIVE (Negative)
--- NOTE | 2022-06-02 15:14 | PC.NURSE ---
pt awaiting ultrasound results, vss stable, pt resting.
--- NOTE | 2022-06-02 16:15 | PC.NURSE ---
upon discharge, the patient refused to leave and insisted that she needed further care, lab tests, and referrals despite findings in this facility being negative. After a conversation concerning her discharge instructions and information, she became increasingly agitated, pulled out her phone and started recording. At this point this nurse left the room and notified security. Security entered the room and the pt notified them that she wanted a work note. This nurse obtained the note and returned it to Security so they could pass it on to the patient. the patient was escorted out to the waiting room by security. patient read over the discharge information, and became verbally aggressive, requesting to registration that nursing staff speak with her, staff went to speak with patient about concerns, pt requesting one week off work, provider refused, stating they only needed one day. security was notified of this, and patient is being discharged with help of security.
== END 2022-06-02 16:29 | disposition home or self-care (01) ==
PROVIDERS: Nurse Practitioner Family; Physician Assistant Medical; Emergency Provider Student in an Organized Health Care Education/Training Program; PCP Internal Medicine
DX: O03.4 Incomplete spontaneous abortion without complication (principal); R10.9 Unspecified abdominal pain; R07.89 Other chest pain; N93.8 Other specified abnormal uterine and vaginal bleeding; R06.02 Shortness of breath; M54.50 Low back pain, unspecified; Z79.899 Other long term (current) drug therapy; Z20.822 Contact with and (suspected) exposure to COVID-19; Z20.828 Contact with and (suspected) exposure to other viral communicable diseases
CPT/HCPCS: 0241U; 36415; 76801; 76817; 80053; 81001; 81003; 81025; 83690; 83735; 84702; 85025; 85610; 86900; 86901; 93005; 99284

== ENCOUNTER 2023-03-11 20:46 | Emergency (ER) | payer MEDICARE, MEDICAID, SELFPAY ==
--- NOTE | ~2023-03-11 | XR_ITS ---
EXAMINATION: XR CHEST CLINICAL INFORMATION: Cough and shortness of breath. COMPARISON: 08/14/2020. TECHNIQUE: 2 views of the chest were obtained. FINDINGS: No significant abnormality is noted involving the heart, lungs, mediastinum, bony thorax or soft tissues. XR/XR chest 2V IMPRESSION: Unremarkable examination.
[2023-03-11 21:07] VITALS: BP 138/81; PULSE 60; RESP 20; TEMP 36.9; O2SAT 99; BMI 25.7
--- NOTE | 2023-03-11 21:20 | ECG_ITS ---
Test Reason : CHEST PAIN Blood Pressure : / mmHG Vent. Rate : 071 BPM Atrial Rate : 071 BPM P-R Int : 138 ms QRS Dur : 086 ms QT Int : 458 ms P-R-T Axes : 053 058 002 degrees QTc Int : 497 ms Normal sinus rhythm RSR' or QR pattern in V1 suggests right ventricular conduction delay Nonspecific T wave abnormality Inferior leads When compared with ECG of 02-JUN-2022 13:48, Inverted T waves have replaced nonspecific T wave abnormality in Inferior leads QT has lengthened Referred By: Generic ED Physician Electronically Signed By:TAY BARKLEY MD
--- NOTE | 2023-03-11 22:17 | MHC.EDTECH ---
pt was attempted for labs. was unsuccessful. pt requested to wait until they see a provider.
[2023-03-12 00:31] VITALS: BP 143/75; PULSE 56; RESP 16; TEMP 36.6; O2SAT 98
--- NOTE | 2023-03-12 00:44 | PC.NURSE ---
PT ambulated into ED with a steady gait, AOx3, pt reporting 9/10 right wrist radiating up right arm pain after injecting heroin into wrist/chest x3 wks ago. Pt reports taking abx for three weeks for same infection. Pt has dime sized red/yellow scab on right wrist. Pt also reports sore throat declined visualization of throat. Pt aware of blood.
--- NOTE | 2023-03-12 00:57 | ED.GENADULT ---
HPI - General Adult General Chief complaint: General Medical Stated complaint: Personal Time Seen by Provider: 03/12/23 00:28 Source: patient, RN notes reviewed and old records reviewed Mode of arrival: ambulatory Limitations: no limitations History of Present Illness HPI narrative: 32 year old female with PMH of opioid use disorder presents for an ongoing skin wound, a sore throat, and feeling like I am dying. She reports being seen here in 2020 and was admitted for 14 days for sepsis. She states she has not used heroin in 11 months, but used 3 weeks ago, and she has not for 5 days. She reports a skin wound with surrounding erythema and pain to the volar aspect of the right wrist. She reports being on Augmentin and doxycycline for about 1 month. She reports she is nervous she is dying and that she is septic. She states she has had fevers with the highest of 102. She also states she has a breast mass and a sore throat, accompanied by the feeling like her throat is closing. She is motivated to stop using drugs. She feels safe at home. Related Data Home Medications Medication Instructions Recorded Confirmed albuterol sulfate 90 mcg/actuation 1 puff inhalation Q4-5H PRN 03/12/23 03/12/23 aerosol inhaler (Ventolin HFA) Wheezing fluticasone propionate 110 1 puff inhalation BID 03/12/23 03/12/23 mcg/actuation HFA aerosol inhaler (Flovent HFA) hydroxyzine HCl 25 mg tablet 25 mg PO DAILY PRN anxiety 03/12/23 03/12/23 pregabalin 50 mg capsule 50 mg PO TID 03/12/23 03/12/23 Allergies Allergy/AdvReac Type Severity Reaction Status Date / Time buprenorphine [From SUBOXONE] Allergy Severe ANAPHAYLAXI Verified 03/12/23 10:06 S naloxone [From SUBOXONE] Allergy Severe ANAPHAYLAXI Verified 03/12/23 10:06 S sulfamethoxazole Allergy Intermediate RASH Verified 03/12/23 10:06 [From BACTRIM] trimethoprim [From BACTRIM] Allergy Intermediate RASH Verified 03/12/23 10:06 lamotrigine [From LAMICTAL] Allergy Unknown RASH Verified 03/12/23 10:06 prednisone [PREDNISONE] Allergy Unknown UNKNOWN Verified 03/12/23 10:06 quetiapine [From SEROQUEL] Allergy Unknown UNKNOWN Verified 03/12/23 10:06 trazodone [TRAZODONE] Allergy Unknown UNKNOWN Verified 03/12/23 10:06 Review of Systems Constitutional: Constitutional: Denies body ache(s), Denies chills, Reports fever(s) and Denies headache(s) ENT: Denies headache(s), Reports sore throat and Reports throat swelling Cardiovascular: Cardiovascular: Denies chest pain, Denies lightheadedness and Denies dyspnea Respiratory: Respiratory: Denies dyspnea Gastrointestinal: Gastrointestinal: Denies abdominal pain, Denies diarrhea, Denies nausea and Denies vomiting Integumentary/Breasts: Skin/Breast: Denies breast pain, Reports breast mass (right breast), Reports unusual bruising and Reports wounds (volar aspect of right wrist) Neurologic: Denies headache(s) Allergic/Immunologic: Allergic/Immunologic: Reports throat swelling PMFSH Past Medical History Medical History Alcohol abuse Cellulitis Foreign body (FB) in soft tissue Heroin abuse No known health problems Family History Family History Other Family history non-contributory Social History Social History Household Members: None Household Members Other:: lives in recovery housing Housing: Other Housing Other:: rents a room/ states shes homeless as wll Do you presently have visiting nurse or other home services: No Alcohol intake: never Cigarette Packs Per Day: 0.5 Cigarettes Per Day: 10.0 Second Hand Smoke Exposure: Yes Substance Use Type: Crack/Cocaine and Heroin Advance Directives: No Advance Directives Information Provided: No Healthcare Proxy: No Guardian: No service: No Current occupational status: disabled Sexual orientation: Straight/Heterosexual Physical Exam ED Vital Signs: Vital Signs - 24 hr 03/11/23 21:07 03/12/23 00:31 Temperature 98.4 F 97.8 F Pulse Rate 60 56 Respiratory Rate 20 16 Blood Pressure 138/81 143/75 H Pulse Oximetry 99 98 Oxygen Delivery Method Room Air Room Air BMI result Body Mass Index 25.7 Const General: healthy appearing, no acute distress and anxious Orientation/consciousness: patient oriented x3 Limitations: no limitations HENMT Head: Yes normocephalic and Yes atraumatic Mouth: Normal oral and palatal mucosa present and moist mucous membranes Throat: Yes posterior oropharynx normal Chest Other: Breast exam performed with female PA student Teresa present, the patient did not want any other staff members in the room Chest palpation & inspection: abnormal inspection of the chest (scattered bruises over chest, approximately 5 total, 1-3cm in size) Breast/axilla inspection: abnormal inspection of the breast (visible right breast mass approximately 1cm x 1cm) 12 oclock, 3cm from areola normal nipple and normal areola; no erythema, no peau d'orange and no nipple discharge Breast/axilla palpation: abnormal palpation of the breast (nontender right breast mass) 12 oclock, 3 cm from areola fibrous tissue prominence; Negative for nipple discharge Resp Effort & Inspection: normal respiratory effort and able to speak in complete sentences Auscultation: clear to auscultation bilaterally Cardio Rate: regular rate Rhythm: regular rhythm Skin Other: Patient has a scabbed over chronic appearing wound to the ventral right wrist Wounds: wounds noted right volar wrist size (0.5 cm x 2 cm yellow scab ) and with surrounding erythema (Minimal surrounding erythema extending approximately 1 cm outside of the wound); no drainage and not open Neuro General: patient oriented x3 Course Course Course Narrative: 2:00 a.m. The patient was being uncooperative with phlebotomy staff. They were unable to draw the patient's labs. Items discussed the patient and deescalate the situation. The patient was demanding ?you have to go into my neck. ? I discussed the patient that blood just the neck are not always safe in have increased risk as opposed to peripheral ultrasound-guided IVs. I offered to get the labs and place an IV if necessary using ultrasound guidance. The patient initially consented to the procedure. However, about 2 minutes into the procedure while attempting to thread the IV needle into the vein, the patient grabbed my hand and pulled the IV out rapidly. I explained to the patient to that is inappropriate behavior and not safe for myself or her given that the ultrasound needle was uncapped at that time. Explained to the patient that there is no evidence of sepsis and she is uncooperative with care and therefore she will be discharged. Also given that she has been on 4 different antibiotics all in the last month and there is no evidence of acute infection but rather evidence of wound healing, the patient does not require oral antibiotics. She may follow-up with her outpatient providers. Medical Decision Making Medical Decision Making [facility] Narrative: 32-year-old female presents for evaluation of a wound to her right wrist. She reports that she has been clean from IV drugs for last 5 days. She is concerned about infection to the area. On review of her external medication reconciliation, she has been on 4 separate antibiotics in February including prescriptions for doxycycline, amoxicillin, cephalexin and Augmentin. She was on clindamycin in November of this year. Patient's vital signs are all within normal limits, there is no evidence of sepsis. Differential Diagnosis Differential Diagnoses: The differential diagnosis associated with the presentation includes skin wound, uninfected cellulitis abscess bacteremia anxiety opioid use disorder Discharge Plan Discharge Clinical Impression: Visit for wound check Patient Disposition: Home, Self-Care Additional Instructions: Your wound does not appear acutely infected. You have no evidence of sepsis. Your vital signs are within normal limits. You may follow-up with your outpatient providers. You may apply topical antibiotic if you wish. Return for new or worsening symptoms Prescriptions: No Action hydroxyzine HCl 25 mg tablet 25 mg PO DAILY PRN (Reason: anxiety) albuterol sulfate [Ventolin HFA] 90 mcg/actuation HFA aerosol inhaler 1 puff inhalation Q4-5H PRN (Reason: Wheezing) fluticasone propionate [Flovent HFA] 110 mcg/actuation HFA aerosol inhaler 1 puff INHALATION BID pregabalin 50 mg capsule 50 mg PO TID Interventions: ED Discharge Assessment Last Done: 03/12/23 02:29 Discharge Date/Time: 03/12/23 02:30
--- NOTE | 2023-03-12 01:51 | MHC.EDTECH ---
T/W attempted to draw blood work, once needle was in Pt stated get this shit out, I need the doctor to put an IV in my neck . Provider Oracio Hyde at bedside attempting IV line with ultrasound machine, while provider had needle in Pt, Pt stated get this out and pulled away while provider still had needle in her arm. Pt arguing with provider. Provider requested to disregard swab. Pt refused repeat VS. RN made aware.
== END 2023-03-12 02:30 | disposition home or self-care (01) ==
PROVIDERS: Emergency Provider Emergency Medicine
DX: S61.501D Unspecified open wound of right wrist, subsequent encounter (principal); X58.XXXD Exposure to other specified factors, subsequent encounter; F11.20 Opioid dependence, uncomplicated; F19.10 Other psychoactive substance abuse, uncomplicated; F10.10 Alcohol abuse, uncomplicated; Y90.9 Presence of alcohol in blood, level not specified; F17.210 Nicotine dependence, cigarettes, uncomplicated
CPT/HCPCS: 71046; 93005; 99283; 99284

== ENCOUNTER 2023-03-12 09:55 | Inpatient (IN) | payer MEDICARE, MEDICAID, SELFPAY ==
--- NOTE | ~2023-03-12 | XR_ITS ---
EXAMINATION: XR CHEST CLINICAL INFORMATION: Chest pain. COMPARISON: 03/11/2023 TECHNIQUE: Frontal view of the chest was obtained. FINDINGS: The lungs are well expanded. No focal consolidation. No pleural effusion. Cardiac silhouette is unchanged. XR/XR chest 1V IMPRESSION: No acute abnormality.
[2023-03-12 10:07] VITALS: BP 150/69; PULSE 69; RESP 16; TEMP 37.2; O2SAT 99; BMI 27.1
--- NOTE | 2023-03-12 10:15 | ECG_ITS ---
Test Reason : ams Blood Pressure : / mmHG Vent. Rate : 061 BPM Atrial Rate : 061 BPM P-R Int : 128 ms QRS Dur : 088 ms QT Int : 472 ms P-R-T Axes : -05 084 021 degrees QTc Int : 475 ms Normal sinus rhythm RSR' or QR pattern in V1 suggests right ventricular conduction delay Otherwise normal ECG When compared with ECG of 11-MAR-2023 21:42, T wave inversion no longer evident in Inferior leads Referred By: Lupe Ruano Electronically Signed By:TAY BARKLEY MD
--- NOTE | 2023-03-12 10:15 | ED_ITS ---
HPI - General Adult General Chief complaint: Behavioral Concerns Stated complaint: Poinsoned? Pt acting odd Time Seen by Provider: 03/12/23 10:23 Source: patient Mode of arrival: ambulatory Limitations: no limitations History of Present Illness HPI narrative: 32-year-old female history of anxiety, depression, cocaine use disorder, opiate abuse, presenting to the emergency department for the 2nd time today for com plaints of right-sided wound on wrist, anxiety, hallucinations, palpitations, sick chest discomfort, subjective fevers and chills. Patient reports she just does not feel like herself, she thinks she has been poisoned. She is speaking very rapidly upon history taking, bizarre behavior in triage throwing things. Pressured speech noted. Denies suicidal and homicidal ideation. Patient has a history of sepsis and she is afraid she may be septic. Related Data Home Medications Medication Instructions Recorded Confirmed albuterol sulfate 90 mcg/actuation 1 puff inhalation Q4-5H PRN 03/12/23 03/12/23 aerosol inhaler (Ventolin HFA) Wheezing fluticasone propionate 110 1 puff inhalation BID 03/12/23 03/12/23 mcg/actuation HFA aerosol inhaler (Flovent HFA) hydroxyzine HCl 25 mg tablet 25 mg PO DAILY PRN anxiety 03/12/23 03/12/23 pregabalin 50 mg capsule 50 mg PO TID 03/12/23 03/12/23 Allergies Allergy/AdvReac Type Severity Reaction Status Date / Time buprenorphine [From SUBOXONE] Allergy Severe ANAPHAYLAXI Verified 03/12/23 10:06 S naloxone [From SUBOXONE] Allergy Severe ANAPHAYLAXI Verified 03/12/23 10:06 S sulfamethoxazole Allergy Intermediate RASH Verified 03/12/23 10:06 [From BACTRIM] trimethoprim [From BACTRIM] Allergy Intermediate RASH Verified 03/12/23 10:06 lamotrigine [From LAMICTAL] Allergy Unknown RASH Verified 03/12/23 10:06 prednisone [PREDNISONE] Allergy Unknown UNKNOWN Verified 03/12/23 10:06 quetiapine [From SEROQUEL] Allergy Unknown UNKNOWN Verified 03/12/23 10:06 trazodone [TRAZODONE] Allergy Unknown UNKNOWN Verified 03/12/23 10:06 Review of Systems Review of Systems: Constitutional : No Weight loss, No Fever, No Chills, No Fatigue, No Malaise ENT/Mouth : No sore throat, No Rhinorrhea Eyes: No Eye Pain, No Swelling, No Redness Cardiovascular : No Chest Pain, No SOB, No Dyspnea on Exertion, No Orthopnea, No Edema, No Palpitations Respiratory : No Cough, No Sputum, No Wheezing Gastrointestinal : No Nausea, No Vomiting, No Diarrhea, No Constipation, No abdominal Pain, No Hematochezia, No Melena Genitourinary : No Dysuria, No Urinary Frequency, No Hematuria, Musculoskeletal : + joint pain, No Myalgias, + Joint Swelling Skin : No Skin Lesions, No rash Neuro : No Weakness, No Numbness, No Dizziness, No Headache Psych : No Anxiety/Panic, No Depression All other systems reviewed and are negative Yes all other systems are reviewed and are negative [facility] Past Medical History Attestation statement: The following information was validated with the patient. Source: old records reviewed and nursing notes reviewed Medical History Alcohol abuse Cellulitis Foreign body (FB) in soft tissue Heroin abuse No known health problems Family History Family History Other Family history non-contributory Social History Social History Household Members: None Household Members Other:: lives in recovery housing Housing: Other Housing Other:: rents a room/ states shes homeless as wll Do you presently have visiting nurse or other home services: No Alcohol intake: never Cigarette Packs Per Day: 0.5 Cigarettes Per Day: 10.0 Second Hand Smoke Exposure: Yes Substance Use Type: Crack/Cocaine and Heroin Advance Directives: No Advance Directives Information Provided: No Healthcare Proxy: No Guardian: No service: No Current occupational status: disabled Sexual orientation: Straight/Heterosexual Physical Exam ED Vital Signs: Vital Signs - 24 hr 03/12/23 10:07 03/12/23 10:48 Temperature 98.9 F 97.9 F Pulse Rate 69 73 Respiratory Rate 16 14 Blood Pressure 150/69 H 145/76 H Pulse Oximetry 99 100 Oxygen Delivery Method Room Air Room Air BMI result Body Mass Index 27.1 vss Appearance: Alert.? Oriented X3.? No acute distress.? Patient speaking rapidly, tangential conversations, appears paranoid and anxious. Head: Normocephalic, atraumatic, no step-offs or deformities Eyes: Pupils equal, round and reactive to light.? CVS: Normal heart rate and rhythm.? Pulses normal.? Respiratory: No respiratory distress.? Breath sounds normal.? Abdomen: Soft and nontender.? Skin: Skin warm and dry.? Normal skin color.? Normal skin turgor.? Extremities: No lower extremity edema.? No calf ttp. 5/5 strength to bilateral upper and lower extremities + wounds noted right volar wrist size (0.5 cm x 2 cm yellow scab ) and with surrounding erythema (Minimal surrounding erythema extending approximately 1 cm outside of the wound); no drainage and not open Back: No midline tenderness, no C-spine tenderness, full range of motion, no CVA tenderness bilaterally Neuro: Oriented X 3.? No motor deficit.? No sensory deficit. CN 2-12 intact Course Reevaluation(s) Reevaluation #1: Tough stick unable to get labs at this time lab to come obtain labs. Urine preg negative. CASIANO fentanyl, marijuana. COVID negative. Time: 15:04 Reevaluation #2: Patient evaluated by care team who feels as though patient would benifit from inpatient admission. Time: 15:08 Reevaluation #3: Physician observation to be initiated at this time to allow more time for patient to be placed in an inpatient psychiatric unit. Patient hesitant to get labs at this time secondary to being a test sick, the lab will try for finger poke. Patient has right to refuse. Plan is for inpatient psychiatric admissio Time: 15:10 Medications Administered Discontinued Medications Generic Name Dose Route Start Last Admin Trade Name Freq PRN Reason Stop Dose Admin Lorazepam 1 mg 03/12/23 13:23 03/12/23 14:14 Lorazepam 1 Mg Tablet PO 03/12/23 13:24 1 mg ONCE ONE Administration Medical Decision Making Medical Decision Making [facility] Narrative: 1019 32-year-old female presents for not feeling herself and wound to her right wrist PE w/ wounds noted right volar wrist size (0.5 cm x 2 cm yellow scab ) and with surrounding erythema (Minimal surrounding erythema extending approximately 1 cm outside of the wound); no drainage and not open. Patient appears paranoid. .? Patient speaking rapidly, tangential conversations, appears anxious. Concerns for cellulitis, unlikely septic joint, threat to limb or neurovascular compromise, there also is some concerns for cycle logical issues such as anxiety, depression, psychosis, schizophrenia, bipolar disorder. Denies suicidal and homicidal ideation. I do not suspect osteomyelitis. Chest pain, shortness of breath likely secondary to anxiety/earle, less likely ACS, pulmonary embolism, endocarditis, myocarditis or pericarditis. Unlikely dissection. Unlikely pneumonia Plan at this time medical clearance evaluation by care team. According to triage nurse patient with bizarre affect, throwing things in triage, bizarre presentation. Differential Diagnosis Differential Diagnoses: The differential diagnosis associated with the presenta tion includes Concerns for cellulitis, unlikely septic joint, threat to limb or neurovascular compromise, there also is some concerns for cycle logical issues such as anxiety, depression, psychosis, schizophrenia, bipolar disorder. Denies suicidal and homicidal ideation. I do not suspect osteomyelitis. Admission/Observation Consideration of admission/observation: Escalation of care including admission/observation considered Lab Data MDM Lab Attestation statement: I reviewed the patient's lab results. Labs: Lab Results 03/12/23 Range/Units 10:55 Urine Test NEGATIVE (NEGATIVE) Urine Opiates Screen Not Detected (Not Detect) Urine Fentanyl Screen POSITIVE H (Not Detect) Ur Barbiturates Screen Not Detected (Not Detect) Ur Phencyclidine Scrn Not Detected (Not Detect) Ur Amphetamines Screen Not Detected (Not Detect) U Benzodiazepines Scrn Not Detected (Not Detect) Urine Cocaine Screen Not Detected (Not Detect) U Marijuana (THC) Screen POSITIVE H (Not Detect) COVID-19 (FREDO) Negative (Negative) COVID-19 Clin Com See Note Social Determinants Patient?s care significantly limited by Social Determinants of Health including: Inadequate housing, Low income, Alcoholism and drug addiction in family, Problems related to primary support group, Unemployment, Problems related to employment and Other Social Determinant of Health Core Measures AMI core measures followed: Yes Critical Care Time Critical Care Time Critical Care Time: No Discharge Plan Discharge Clinical Impression: Acute psychosis, Cellulitis of right wrist Patient Disposition: Still a Patient Prescriptions: No Action hydroxyzine HCl 25 mg tablet 25 mg PO DAILY PRN (Reason: anxiety) albuterol sulfate [Ventolin HFA] 90 mcg/actuation HFA aerosol inhaler 1 puff inhalation Q4-5H PRN (Reason: Wheezing) fluticasone propionate [Flovent HFA] 110 mcg/actuation HFA aerosol inhaler 1 puff INHALATION BID pregabalin 50 mg capsule 50 mg PO TID
[2023-03-12 10:48] VITALS: BP 145/76; PULSE 73; RESP 14; TEMP 36.6; O2SAT 100
[2023-03-12 11:04] LABS: UPreg QC Valid YES; Urine Pregnancy NEGATIVE (NEGATIVE)
[2023-03-12 11:13] LABS: Amphetamine Screen Urine Not Detected (Not Detect); Barbiturates, Urine Not Detected (Not Detect); Benzodiazepines Screen Urine Not Detected (Not Detect); Cannabinoid Screen Urine POSITIVE (Not Detect); Cocaine Screen Urine Not Detected (Not Detect); Fentanyl, urine POSITIVE (Not Detect); Opiate Screen Urine Not Detected (Not Detect); Phencyclidine Screen Urine Not Detected (Not Detect)
[2023-03-12 11:17] LABS: COVID-19 Test Negative (Negative); IDNOW Serial# 08D9AD1C
[2023-03-12] MEDS: LORazepam 1 MG TABLET PO (14:14)
--- NOTE | 2023-03-12 14:22 | PHA.MEDREC ---
Pharmacy Consult ? Medication Reconciliation Pharmacy has reviewed the medication reconciliation completed by nursing.
[2023-03-12 15:15] LABS: Appearance Urine Clear; Color Urine Yellow; Glucose Urine UA Negative (Negative); Leukocyte Esterase Urine Negative (Negative); Nitrite Urine Negative (Negative); PH 6.5 (5.0-9.0); Specific Gravity - Urine 1.015 (1.005-1.025); UMIC TRIGGER UACC YES; Urine Blood Trace (Negative); Urine Ketones Negative (Negative); Urine Protein Negative (Neg-Trace)
[2023-03-12 15:18] LABS: Bacteria Urine None Seen (None Seen); Hyaline Casts Urine 0-2 /LPF (0-2); WBC Urine 0-5 /HPF (0-5)
[2023-03-12] MEDS: Bacitracin Oint 0.9 GM PACKET 1 APPL TOPICAL ×2 (16:35→20:23)
[2023-03-12 16:42] VITALS: RESP 18
--- NOTE | 2023-03-12 16:43 | PC.NURSE ---
Patient voiced concern over pet bunnies in apartment. Patient was angry that staff was not able to call her landlord and find someone to feed her bunny while she is in the hospital. Patient stated she probably should have stayed overnight in hospital last night and agrees with plan to admit to floor. Patient has quarter size wound on outside of right wrist. Wound cleaned, bacitracin and bandaid applied.
--- NOTE | 2023-03-12 18:59 | PC.NURSE ---
Patient states they have not eaten and only drank water because everything is poison out there . Patient offered different foods and drinks and refused.
[2023-03-12] MEDS: Doxycycline Monohydrate 100 MG CAPSULE PO (20:23)
[2023-03-12] MEDS: methADONE HCl 20 MG/2 ML ORAL.CONC PO (20:59)
[2023-03-12 21:00] VITALS: BP 155/88; PULSE 73; RESP 18; TEMP 36.4; O2SAT 99
[2023-03-12] MEDS: LORazepam 1 MG TABLET 2 MG PO (22:30)
[2023-03-13] MEDS: LORazepam 1 MG TABLET PO ×3 (06:01→13:49)
[2023-03-13] MEDS: methADONE HCl 20 MG/2 ML ORAL.CONC 30 MG PO (06:20)
--- NOTE | 2023-03-13 06:34 | PC.NURSE ---
RAMIRO ARRIVED ON THE UNIT FROM THE POD AT APPROXIMATELY 0 ON 03/12/23 VIA W/C ACCOMPANIED BY ER STAFF. SHE WAS IMMEDIATELY IRRITABLE AND AGITATED BECAUSE OF HER DISPOSITION. DECLINED TO COMPLETE ADMISSION ASSESSMENT X 4. SHE WAS DEMANDING TO LEAVE THE UNIT, STATING SHE WAS HERE ILLEGALLY AND THAT HER SIGNATURE WAS FORGED ON THE CV THAT WAS SIGNED IN THE ER. STAFF ASSISTED HER TO CALL [facility] TO VERBALIZE HER COMPLAINTS. SHE STATES SHE HAS PETS AT HOME AND CANNOT BE HERE. I'M NOT SUICIDAL, I'M NOT HOMICIDAL. SHE WAS RECEPTIVE TO TAKE 2MG OF ATIVAN AND SHE SLEPT. SHE WOKE UP AT 0530 ONCE AGAIN DEMANDING TO LEAVE, TO SEE A DOCTOR AND TAKE HER METHADONE. PROCEDURE EXPLAINED ABOUT METHADONE DOSE NEEDING TO BE CONFIRMED, UPDATED AND 30MG OF METHADONE ORDERED AND GIVEN. ATIVAN 1 MG GIVEN ALSO. METHADONE CLINIC CALLED TO VERIFY DOSE, FORM GIVEN TO PHARMACY AND COPY PLACED IN CHART. RAMIRO TOOK A SHOWER AND IS CURRENTLY USING THE PHONE. CONTINUES ON 5 MIN UNIT SAFETY OBSERVATION R/T EXIT SEEKING.
--- NOTE | 2023-03-13 06:55 | HE.PHANOTE ---
METHADONE CONFIRMATION PATIENT TAKES 90 IN AM AND 40MG AT HS PER TAKE HOME DOSES
[2023-03-13] MEDS: methADONE HCl 20 MG/2 ML ORAL.CONC 60 MG PO (08:04)
[2023-03-13] MEDS: Folic Acid 1 MG TABLET PO (08:06)
[2023-03-13] MEDS: Thiamine HCL 100 MG TABLET PO (08:06)
[2023-03-13] MEDS: Doxycycline Monohydrate 100 MG CAPSULE PO (08:06)
[2023-03-13] MEDS: Pregabalin 50 MG CAPSULE PO (08:06)
[2023-03-13] MEDS: Multivitamin TABLET 1 TAB PO (08:07)
[2023-03-13] MEDS: Bacitracin Oint 0.9 GM PACKET 1 APPL TOPICAL (08:19)
[2023-03-13 09:29] LABS: Alanine Aminotransferase 15 U/L (0-31); Albumin Level 4.5 g/dL (3.5-5.0); Alkaline Phosphatase 66 U/L (39-117); Anion Gap 14 (12-20); Aspartate Amino Transferase 18 U/L (5-31); Bilirubin Total 0.5 mg/dL (0.0-1.0); Blood Urea Nitrogen 9 mg/dL (9-16); Calcium 9.7 mg/dL (8.4-10.2); Carbon Dioxide 26 mmol/L (22-29); Chloride 104 mmol/L (96-108); Cholesterol 219 mg/dL (<200); Creatinine Clr Calc Pharmacy 96.5; Estimated Glomerular Filt Rate > 60; Glucose Random 102 mg/dL (60-115); HDL Cholesterol 50 mg/dL (>40); LDL Cholesterol Calculated 155 mg/dL (<100); Magnesium 2.1 mg/dL (1.6-2.6); Potassium 3.6 mmol/L (3.3-5.1); Sodium 140 mmol/L (135-145); Total Protein 8.3 g/dL (6.5-8.0); Triglycerides 70 mg/dL (<150)
--- NOTE | 2023-03-13 09:29 | PC.NURSE ---
Pt refused flu vaccine, refused to participate in majority of admission assessment.
[2023-03-13 09:33] LABS: Acetaminophen LAB < 3 mcg/mL (<30); Salicylate < 5.0 mg/dL (15-30)
[2023-03-13 09:34] LABS: B Type Natriuretic Peptide 49 pg/mL (<100)
[2023-03-13 09:37] LABS: Troponin-I High Sensitivity < 2.7 ng/L (<3.5-17.0)
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
[2023-03-13 09:56] LABS: MANUAL DIFF FLAG NO
[2023-03-13 10:08] LABS: Basophils Percent Auto 0.2 % (0-2); Eosinophils Percent Auto 0.1 % (0-4); Hematocrit 37.6 % (37.0-47.0); Hemoglobin 12.6 g/dl (12.0-16.0); Imm Gran Abs Auto 0.03 X10*3/uL (0.00-0.03); Imm Gran Pct Auto 0.4 % (0.0-0.4); Lymphocytes Absolute Auto 1.7 X10*3/uL (1.2-4.9); Lymphocytes Percent Auto 19.7 % (20-40); Mean Corpuscular HGB Conc 33.5 g/dl (31.0-35.0); Mean Corpuscular Hemoglobin 28.1 pg (27.0-33.0); Mean Corpuscular Volume 83.7 fL (80.0-98.0); Mean Platelet Volume 11.1 fL (9.4-12.3); Monocytes Absolute Auto 0.9 X10*3/uL (0.1-1.2); Monocytes Percent Auto 10.3 % (2-11); Neutrophils Absolute Auto 5.8 x10*3/uL (2.0-8.3); Neutrophils Percent Auto 69.3 % (45-73); Platelet Count 259 X10*3/uL (160-400); Red Blood Count 4.49 X10*6/uL (4.20-5.50); Red Cell Distribution Width 14.2 % (11.0-16.0); White Blood Count 8.4 X10*3/uL (4.8-10.8)
[2023-03-13 10:47] LABS: Estimated Average Glucose 100 mg/dL; Hemoglobin A1c % 5.1 % (<6.0)
[2023-03-13 11:32] VITALS: BP 163/74; PULSE 112; TEMP 36.8; O2SAT 99
[2023-03-13] MEDS: methADONE HCl 20 MG/2 ML ORAL.CONC 40 MG PO (11:41)
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
== END 2023-03-13 14:00 | disposition home or self-care (01) | DRG 885 ==
LOC: HO.ED 15:13 → HO.PADLT16 21:54
PROVIDERS: Physician Assistant; Admitting Provider Psychiatry & Neurology Psychiatry; Emergency Provider Student in an Organized Health Care Education/Training Program; Visit Provider Psychiatry & Neurology Psychiatry
DX: F39 Unspecified mood [affective] disorder (principal); F11.20 Opioid dependence, uncomplicated; L03.113 Cellulitis of right upper limb; Z20.822 Contact with and (suspected) exposure to COVID-19; Z79.51 Long term (current) use of inhaled steroids; Z79.899 Other long term (current) drug therapy
CPT/HCPCS: 36415; 71045; 71046; 80053; 80061; 80143; 80179; 80307; 81001; 81025; 83036; 83735; 83880; 84484; 85025; 87635; 93005; 99283; 99285; S9485

== ENCOUNTER → 2023-03-12 21:29 | Outpatient (BNV) | payer MEDICARE, MEDICAID, SELFPAY | PROVIDERS: Admitting Provider Psychiatry & Neurology Psychiatry; Emergency Provider Student in an Organized Health Care Education/Training Program; Visit Provider Psychiatry & Neurology Psychiatry | DX: F39 Unspecified mood [affective] disorder (principal); F11.20 Opioid dependence, uncomplicated | CPT/HCPCS: 90792; 99239 ==

== ENCOUNTER 2024-11-03 14:11 | Emergency (ER) | payer MEDICARE, MEDICAID, SELFPAY ==
[2024-11-03 14:17] VITALS: BP 129/84; PULSE 84; RESP 20; TEMP 36.4; O2SAT 98; BMI 25.8
--- NOTE | 2024-11-03 14:17 | ED_ITS ---
HPI - General Adult General Chief complaint: General Medical Stated complaint: [address] wants her to dose her Time Seen by Provider: 11/03/24 15:25 Related Data Home Medications ?Medication ?Instructions ?Recorded ?Confirmed albuterol sulfate 90 mcg/actuation 1 puff inhalation Q 4-5H PRN 03/12/23 03/12/23 aerosol inhaler (Ventolin HFA) Wheezing fluticasone propionate 110 1 puff inhalation BID 03/1203/12/23 mcg/actuation HFA aerosol inhaler (Flovent HFA) hydroxyzine HCl 25 mg tablet 25 mg PO DAILY PRN anxiet y 03/12/23 03/12/23 pregabalin 50 mg capsule 50 mg PO TID 03/12/23 methadone 10 mg/mL oral 90 mg PO QPM 11/03/24 concentrate (Methadone Intensol) methadone 10 mg/mL oral 100 mg PO DAILY 11/03/2406/29 concentrate (Methadone Intensol) Previous Rx's ?Medication ?Instructions ?Recorded bacitracin 500 unit/gram topical 1 appl topical BID 30 days #10 ea 03/13/23 packet doxycycline monohydrate 100 mg 100 mg PO BID 10 days # 20 caps 03/13/23 capsule folic acid 1 mg tablet 1 mg PO DAILY 30 days #30 ta bs 03/13/23 multivitamin (Daily-Sudheer tablet) 1 tab PO DAILY 30 day s #30 tabs 03/13/23 thiamine mononitrate (vit B1) 100 100 mg PO DAILY 30 d ays #30 tabs 03/13/23 mg tablet Allergies Allergy/AdvReac Type Severity Reaction Status Date / Time buprenorphine (From SUBOXONE) Allergy Severe ANAPHAYLAXI Verified 11/03/24 14:19 S naloxone (From SUBOXONE) Allergy Severe ANAPHAYLAXI Verified 11/03/24 14:19 S sulfamethoxazole (From Allergy Intermediate RASH Verified 11/03/24 14:19 BACTRIM) trimethoprim (From BACTRIM) Allergy Intermediate RASH Verified 11/03/24 14:19 lamotrigine (From LAMICTAL) Allergy Unknown RASH Verified 11/03/24 14:19 prednisone (PREDNISONE) Allergy Unknown UNKNOWN Verified 11/03/24 14:19 quetiapine (From SEROQUEL) Allergy Unknown UNKNOWN Verified 11/03/24 14:19 trazodone (TRAZODONE) Allergy Unknown UNKNOWN Verified 11/03/24 14:19 [facility] Past Medical History Medical History Foreign body (FB) in soft tissue Alcohol abuse Cellulitis Heroin abuse No known health problems Family History Family History Other Family history non-contributory Social History Social History Household Members: None Household Members Other:: lives in recovery housing Housing: Apartment Housing Other:: rents a room/ states shes homeless as wll Do you presently have visiting nurse or other home services: No Unable to assess alcohol history related to: Refusing to respond Alcohol intake: never Comment: 1:1 sitter Patient Tobacco Use Status: Refuse Tobacco use screen Cigarette Packs Per Day: 0.5 Cigarettes Per Day: 10.0 Second Hand Smoke Exposure: Yes Substance Use Type: Heroin and Marijuana Advance Directives: No Advance Directives Information Provided: No Do you have a plan to hurt others: No Plan service: No Current occupational status: disabled Sexual orientation: Straight/Heterosexual Physical Exam ED Vital Signs: Vital Signs - 24 hr 11/03/24 14:17 11/03/24 16:04 Temperature 97.5 F 97.5 F Pulse Rate 84 84 Respiratory Rate 20 20 Blood Pressure 129/84 129/84 Pulse Oximetry 98 98 Oxygen Delivery Method Room Air Room Air BMI result Body Mass Index 25.8 Course Course Course Narrative: RME, this is a rapid medical exam performed by Maionr Hyde please refer to primary provider for complete H&P- 33 year old female presents for evaluation of methadone dosing. She reports that she takes 190 mg and take 100mg in the morning which she reports getting today at a correctional facility and takes 90mg in the afternoon. She is starting a program at the [facility] and they are requesting her afternoon dose. She is , reports that she is approximately 3 months . Denies abdominal pain, vaginal bleeding or discharge. Medications Administered Discontinued Medications Generic Name Dose Route Start Last Admin Trade Name Freq PRN Reason Stop Dose Admin Methadone HCl 90 mg 11/03/24 15:36 11/03/24 16:01 Methadone Hcl 20 Mg/2 Ml Oral.Conc PO 11/03/24 15:37 90 mg ONCE ONE Administration Medical Decision Making Medical Decision Making [facility] Narrative: Patient is here requesting of the methadone dose no other complaint we will go ahead administer methadone after checking with the clinic Admission/Observation Consideration of admission/observation: Escalation of care including admission/observation considered Discharge Plan Discharge Clinical Impression: Opioid use disorder, moderate, on maintenance therapy, Encounter for medication administration Patient Disposition: Home, Self-Care Instructions: Narcotic Use Disorder (ED) Additional Instructions: follow up with methadone clinic Prescriptions: No Action hydroxyzine HCl 25 mg tablet 25 mg PO DAILY PRN (Reason: anxiety) albuterol sulfate [Ventolin HFA] 90 mcg/actuation HFA aerosol inhaler 1 puff inhalation Q4-5H PRN (Reason: Wheezing) fluticasone propionate [Flovent HFA] 110 mcg/actuation HFA aerosol inhaler 1 puff INHALATION BID pregabalin 50 mg capsule 50 mg PO TID doxycycline monohydrate 100 mg Capsule 100 mg PO BID 10 Days Qty: 20 0RF folic acid 1 mg Tablet 1 mg PO DAILY 30 Days Qty: 30 0RF bacitracin 500 unit/gram Packet 1 appl topical BID 30 Days Qty: 10 0RF Protocol: Apply to: Apply to: wrist multivitamin [Daily-Sudheer] Tablet 1 tab PO DAILY 30 Days Qty: 30 0RF thiamine mononitrate (vit B1) 100 mg Tablet 100 mg PO DAILY 30 Days Qty: 30 0RF methadone [Methadone Intensol] 10 mg/mL Concentrate 100 mg PO DAILY methadone [Methadone Intensol] 10 mg/mL Concentrate 90 mg PO QPM Interventions: ED Discharge Assessment Last Done: 11/03/24 16:04 Discharge Date/Time: 11/03/24 16:04 Print Language: Slovak
--- NOTE | 2024-11-03 15:27 | ED.GENADULT ---
HPI - General Adult General Chief complaint: General Medical Stated complaint: [address] wants her to dose her Time Seen by Provider: 11/03/24 15:25 Source: patient Mode of arrival: ambulatory Limitations: no limitations History of Present Illness HPI narrative: patient is here requesting her methadone dose she is about 3 months she has a split dose of methadone denies any other complaint Onset (ago): hour(s) (4) Radiation: non-radiation Severity: mild Relieving factors: none Exacerbating factors: none Related Data Home Medications ?Medication ?Instructions ?Recorded ?Confirmed albuterol sulfate 90 mcg/actuation 1 puff inhalation Q4-5H PRN 03/12/23 03/12/23 aerosol inhaler (Ventolin HFA) Wheezing fluticasone propionate 110 1 puff inhalation BID 03/12/23 03/12/23 mcg/actuation HFA aerosol inhaler (Flovent HFA) hydroxyzine HCl 25 mg tablet 25 mg PO DAILY PRN anxiety 03/12/23 03/12/23 pregabalin 50 mg capsule 50 mg PO TID 03/12/23 03/12/23 methadone 10 mg/5 mL oral solution 40 mg PO BEDTIME 03/13/23 03/13/23 methadone 10 mg/5 mL oral solution 90 mg PO DAILY 03/13/23 03/13/23 Previous Rx's ?Medication ?Instructions ?Recorded bacitracin 500 unit/gram topical 1 appl topical BID 30 days #10 ea 03/13/23 packet doxycycline monohydrate 100 mg 100 mg PO BID 10 days #20 caps 03/13/23 capsule folic acid 1 mg tablet 1 mg PO DAILY 30 days #30 tabs 03/13/23 multivitamin (Daily-Sudheer tablet) 1 tab PO DAILY 30 days #30 tabs 03/13/23 thiamine mononitrate (vit B1) 100 100 mg PO DAILY 30 days #30 tabs 03/13/23 mg tablet Allergies Allergy/AdvReac Type Severity Reaction Status Date / Time buprenorphine (From SUBOXONE) Allergy Severe ANAPHAYLAXI Verified 11/03/24 14:19 S naloxone (From SUBOXONE) Allergy Severe ANAPHAYLAXI Verified 11/03/24 14:19 S sulfamethoxazole (From Allergy Intermediate RASH Verified 11/03/24 14:19 BACTRIM) trimethoprim (From BACTRIM) Allergy Intermediate RASH Verified 11/03/24 14:19 lamotrigine (From LAMICTAL) Allergy Unknown RASH Verified 11/03/24 14:19 prednisone (PREDNISONE) Allergy Unknown UNKNOWN Verified 11/03/24 14:19 quetiapine (From SEROQUEL) Allergy Unknown UNKNOWN Verified 11/03/24 14:19 trazodone (TRAZODONE) Allergy Unknown UNKNOWN Verified 11/03/24 14:19 Review of Systems Constitutional: Constitutional: Reports no additional constitutional complaints ENT: Reports system reviewed and no additional complaints, except as documented Musculoskeletal: Musculoskeletal: Reports no additional musculoskeletal complaints [facility] Past Medical History Attestation statement: The following information was validated with the patient. [facility] Narrative: substance abuse Medical History Foreign body (FB) in soft tissue Alcohol abuse Cellulitis Heroin abuse No known health problems Family History Family History Other Family history non-contributory Social History Social History Household Members: None Household Members Other:: lives in recovery housing Housing: Apartment Housing Other:: rents a room/ states shes homeless as wll Do you presently have visiting nurse or other home services: No Unable to assess alcohol history related to: Refusing to respond Alcohol intake: never Comment: 1:1 sitter Patient Tobacco Use Status: Refuse Tobacco use screen Cigarette Packs Per Day: 0.5 Cigarettes Per Day: 10.0 Second Hand Smoke Exposure: Yes Substance Use Type: Heroin and Marijuana Do you have a plan to hurt others: No Plan service: No Current occupational status: disabled Sexual orientation: Straight/Heterosexual Physical Exam ED Vital Signs: Vital Signs - 24 hr 11/03/24 14:17 Temperature 97.5 F Pulse Rate 84 Respiratory Rate 20 Blood Pressure 129/84 Pulse Oximetry 98 Oxygen Delivery Method Room Air BMI result Body Mass Index 25.8 no acute distress Const Orientation/consciousness: oriented to person HENMT Head: Yes normal to inspection General nose exam: Normal external nose present Mouth: Normal oral and palatal mucosa present Neck Neck: Yes normal visual inspection Chest Chest palpation & inspection: normal inspection of the chest Resp Effort & Inspection: normal respiratory effort Cardio Jugular venous distension: no JVD Rate: regular rate Rhythm: regular rhythm GI Inspection: Yes normal to inspection Palpation (GI): Soft to palpation Skin General skin exam: no rashes or lesions noted Lesions: no lesions Rashes: no rashes Neuro General: oriented to person Gait exam (Neuro): Normal gait present Medical Decision Making Medical Decision Making MDM Narrative: patient is here requesting methadone we will verified with the methadone clinic Differential Diagnosis Differential Diagnoses: The differential diagnosis associated with the presentation includes opioid use disorder Discharge Plan Discharge Clinical Impression: Opioid use disorder, moderate, on maintenance therapy Patient Disposition: Home, Self-Care Additional Instructions: follow up with methadone clinic Prescriptions: No Action hydroxyzine HCl 25 mg tablet 25 mg PO DAILY PRN (Reason: anxiety) albuterol sulfate [Ventolin HFA] 90 mcg/actuation HFA aerosol inhaler 1 puff inhalation Q4-5H PRN (Reason: Wheezing) fluticasone propionate [Flovent HFA] 110 mcg/actuation HFA aerosol inhaler 1 puff INHALATION BID pregabalin 50 mg capsule 50 mg PO TID methadone 10 mg/5 mL Solution 90 mg PO DAILY methadone 10 mg/5 mL Solution 40 mg PO BEDTIME doxycycline monohydrate 100 mg Capsule 100 mg PO BID 10 Days Qty: 20 0RF folic acid 1 mg Tablet 1 mg PO DAILY 30 Days Qty: 30 0RF bacitracin 500 unit/gram Packet 1 appl topical BID 30 Days Qty: 10 0RF Protocol: Apply to: Apply to: wrist multivitamin [Daily-Sudheer] Tablet 1 tab PO DAILY 30 Days Qty: 30 0RF thiamine mononitrate (vit B1) 100 mg Tablet 100 mg PO DAILY 30 Days Qty: 30 0RF Print Language: Mauritian
--- NOTE | 2024-11-03 15:37 | PC.NURSE ---
methadone dose verified with MAK Orozco at [facility]- pt rec 100mg methadone in the AM (last dose 11/03/24) and 90mg in PM (last dose 11/02/2024) verification form faxed to pharmacy
[2024-11-03] MEDS: methADONE HCl 20 MG/2 ML ORAL.CONC 90 MG PO (16:01)
[2024-11-03 16:04] VITALS: BP 129/84; PULSE 84; RESP 20; TEMP 36.4; O2SAT 98
== END 2024-11-03 16:04 | disposition home or self-care (01) ==
LOC: HO.ED 15:36
PROVIDERS: Emergency Provider Emergency Medicine
DX: O99.322 Drug use complicating pregnancy, second trimester (principal); F11.20 Opioid dependence, uncomplicated; Z3A.00 Weeks of gestation of pregnancy not specified
CPT/HCPCS: 99282; 99283